=== PATIENT | male | born 1990 | race Caucasian/White ===

== ENCOUNTER 2020-12-13 15:48 | Inpatient (IN) | payer MEDICAID, OTHER ==
[~2020-12-13] VITALS: Ht 170.2 cm; Wt 87.7 kg
[~2020-12-13 15:48] MED LIST: CLOZ100T32 PO; DESO515C TP; HALO5TAB2 PO; NIZO215C TP
[2020-12-13] MEDS ORDERED: LORazepam 2 MG/ML VIAL ONE (16:43)
[2020-12-13] MEDS ORDERED: HALOPERIDOL LACTATE 5 MG/ML VIAL ONE (16:43)
[2020-12-13] MEDS ORDERED: DiphenhydrAMINE HCL 50 MG/ML VIAL ONE (16:43)
[2020-12-13] MEDS ORDERED: HALOPERIDOL LACTATE 5 MG/ML VIAL IM ONE (16:45)
[2020-12-13] MEDS ORDERED: DiphenhydrAMINE HCL 50 MG/ML VIAL IM ONE (16:45)
[2020-12-13] MEDS ORDERED: LORazepam 2 MG/ML VIAL IM ONE (16:45)
[2020-12-13 17:13] LABS: COVID AG,FIA SOURCE NASOPHARYNGEAL
[2020-12-13 17:45] LABS: BASOPHILS % (AUTO) 0.7 % (0.0-2.0); EOSINOPHILS % (AUTO) 2.6 % (1.0-6.0); HEMATOCRIT 40.9 % (41-53); HEMOGLOBIN 13.9 g/dL (13.5-17.5); LYMPHOCYTES # (AUTO) 2.3 K/uL (1.0-4.8); LYMPHOCYTES % (AUTO) 16.8 % (22.0-44.0); MEAN CORPUSCULAR HEMOGLOBIN 28.7 pg (26.0-34.0); MEAN CORPUSCULAR HGB CONC 33.9 G/dL (31.0-37.0); MEAN CORPUSCULAR VOLUME 85 fL (80-100); MONOCYTES # (AUTO) 1.3 K/uL (0.1-1.0); NEUTROPHILS # (AUTO) 9.9 K/uL (1.8-7.7); NEUTROPHILS % (AUTO) 70.9 % (40.0-70.0); PLATELET COUNT (AUTO) 380 K/uL (150-450); RED BLOOD CELL COUNT(AUTO) 4.84 MIL/uL (4.50-5.90); RED CELL DISTRIBUTION WIDTH 13.7 % (11.5-14.5)
[2020-12-13 17:53] LABS: ANION GAP 16 mmol/L (8-16); CALCIUM, TOTAL 8.9 mg/dL (8.8-10.5); CARBON DIOXIDE 21 mmol/L (22-29); CHLORIDE 101 mmol/L (98-107); CREATININE 0.85 mg/dL (0.60-1.30); GLOMERULAR FILTR. RATE CALC > 60 mL/min (>60); GLUCOSE,RANDOM 118 mg/dL (70-110); POTASSIUM 3.7 mmol/L (3.5-5.1); SODIUM SERUM 138 mmol/L (136-145); UREA NITROGEN, BLOOD 13 mg/dL (7-18)
[2020-12-13 18:08] LABS: ALANINE AMINOTRANSFERASE 31 U/L (12-78); ALBUMIN 3.9 g/dL (3.4-5.0); ALKALINE PHOSPHATASE 94 U/L (46-116); ASPARTATE AMINOTRANSFERASE 15 U/L (15-37); BILIRUBIN,TOTAL 0.3 mg/dL (0.1-1.0); CHOL/HDL RATIO 4.7 (4.2-7.3); CHOLESTEROL 197 mg/dL (131-200); FREE T4 (FREE THYROXINE) 1.32 ng/dL (0.76-1.46); HDL CHOLESTEROL 42 mg/dL (40-60); LDL CHOL (CALC.) 129 mg/dL (0-130); THYROID STIMULATING HORMONE 3.47 uIU/mL (0.36-3.74); TOTAL PROTEIN, SERUM 8.3 g/dL (6.4-8.2); TRIGLYCERIDES 131 mg/dL (15-150)
[2020-12-13] MEDS ORDERED: ZOLPIDEM TARTRATE 10 MG TABLET PO PRN (19:00)
[2020-12-13] MEDS ORDERED: LORazepam 2 MG TABLET PO PRN (19:00)
[2020-12-13] MEDS ORDERED: HALOPERIDOL 5 MG TABLET PO PRN (19:00)
[2020-12-13] MEDS ORDERED: PRUC2TAB PO (19:12)
[2020-12-13] MEDS ORDERED: HYDR-3831 PO (19:12)
[2020-12-13] MEDS ORDERED: OLAN10TA3 PO (19:12)
[2020-12-13 19:49] LABS: AMPHET/METH SCREEN,URINE NEGATIVE (NEGATIVE); BARBITURATE SCREEN, URINE NEGATIVE (NEGATIVE); BENZODIAZEPINES SCREEN,URINE NEGATIVE (NEGATIVE); CANNABINOID SCREEN,URINE NEGATIVE (NEGATIVE); COCAINE SCREEN,URINE NEGATIVE (NEGATIVE); METHADONE SCREEN, URINE NEGATIVE (NEGATIVE); OPIATE SCREEN,URINE NEGATIVE (NEGATIVE)
[2020-12-13 19:56] LABS: PHENCYCLIDINE SCREEN,URINE NEGATIVE (NEGATIVE)
[2020-12-13] MEDS ORDERED: ZOLPIDEM TARTRATE 10 MG TABLET PO ONE (20:15)
[2020-12-13] MEDS ORDERED: RisperiDONE 1 MG TABLET PO ONE (20:15)
[2020-12-14 03:03] VITALS: BP 105/73
[2020-12-14] MEDS ORDERED: INFLUENZA VIRUS VACCINE QVS 2020-21 (6MO+)/PF 60 MCG/0.5 ML SYRINGE IM ONE (06:15)
[2020-12-14] MEDS ORDERED: GuaiFENesin/D-METHORPHAN [SUGAR-FREE] 200-20MG/10 ML SYRUP UDCUP PO PRN (07:30)
[2020-12-14] MEDS ORDERED: IBUPROFEN 400 MG TABLET PO PRN (07:30)
[2020-12-14] MEDS ORDERED: DOCUSATE SODIUM 100 MG CAPSULE PO PRN (07:30)
[2020-12-14] MEDS ORDERED: ALBUTEROL SULFATE HFA 90 MCG/PUFF 8 GM INHALER IH PRN (07:30)
[2020-12-14] MEDS ORDERED: NICOTINE 14 MG/24 HOUR PATCH TD PRN (07:30)
[2020-12-14] MEDS ORDERED: ONDANSETRON HCL 4 MG TABLET PO PRN (07:30)
[2020-12-14] MEDS ORDERED: PETROLATUM,WHITE 28 GM JELLY TP PRN (07:30)
[2020-12-14] MEDS ORDERED: LOPERAMIDE HCL 2 MG CAPSULE PO PRN (07:30)
[2020-12-14] MEDS ORDERED: MAGNESIUM HYDROXIDE SUSPENSION 30 ML UDCUP PO PRN (07:30)
[2020-12-14] MEDS ORDERED: CloNIDine HCL 0.1 MG TABLET PO PRN (07:30)
[2020-12-14] MEDS ORDERED: MAG HYDROX/AL HYDROX/SIMETH ES 30 ML SUSPENSION UDCUP PO PRN (07:30)
[2020-12-14] MEDS ORDERED: ACETAMINOPHEN 325 MG TABLET PO PRN (07:30)
[2020-12-14 10:11] VITALS: BP 115/77
[2020-12-14] MEDS: HydrOXYzine HCL 10 MG TABLET PO SCH ×2 (13:21→20:33)
[2020-12-14 16:39] VITALS: BP 108/71
[2020-12-14] MEDS: OLANZapine 10 MG TABLET PO SCH (20:33)
[2020-12-15 01:46] VITALS: BP 125/68
[2020-12-15 08:19] VITALS: BP 120/75
[2020-12-15] MEDS: HydrOXYzine HCL 10 MG TABLET PO SCH ×2 (08:41→21:59)
[2020-12-15 16:20] VITALS: BP 113/73
[2020-12-15] MEDS: OLANZapine 10 MG TABLET PO SCH (21:59)
[2020-12-16 05:21] VITALS: BP 110/72
[2020-12-16 08:34] VITALS: BP 100/61
[2020-12-16] MEDS: HydrOXYzine HCL 10 MG TABLET PO SCH ×2 (09:34→21:43)
[2020-12-16 16:29] VITALS: BP 116/74
[2020-12-16] MEDS: OLANZapine 10 MG TABLET PO SCH (21:43)
[2020-12-17 04:31] VITALS: BP 114/72
[2020-12-17 08:26] VITALS: BP 117/74
[2020-12-17] MEDS: HydrOXYzine HCL 10 MG TABLET PO SCH ×2 (09:31→20:07)
[2020-12-17 17:05] VITALS: BP 107/62
[2020-12-17] MEDS: OLANZapine 10 MG TABLET PO SCH (20:06)
[2020-12-18 03:49] VITALS: BP 111/69
[2020-12-18] MEDS: HydrOXYzine HCL 10 MG TABLET PO SCH ×2 (08:38→21:59)
[2020-12-18 09:01] VITALS: BP 116/64
[2020-12-18 16:33] VITALS: BP 116/77
[2020-12-18] MEDS: OLANZapine 10 MG TABLET PO SCH (21:59)
[2020-12-19 02:39] VITALS: BP 112/72
[2020-12-19 08:55] VITALS: BP 120/61
[2020-12-19] MEDS: HydrOXYzine HCL 10 MG TABLET PO SCH (09:25)
[2020-12-19] MEDS ORDERED: HYDR-3831 PO (09:26)
[2020-12-19] MEDS ORDERED: OLAN10TA20 PO (09:26)
== END 2020-12-19 12:21 | disposition home or self-care (01) | DRG 750 ==
LOC: EMS 15:48 → B3A 18:46
DX: F20.0 Paranoid schizophrenia (principal); F99 Mental disorder, not otherwise specified; D72.829 Elevated white blood cell count, unspecified; E66.3 Overweight; F31.9 Bipolar disorder, unspecified; Z20.822 Contact with and (suspected) exposure to COVID-19; F79 Unspecified intellectual disabilities; R00.0 Tachycardia, unspecified; Z78.1 Physical restraint status; Z79.899 Other long term (current) drug therapy; Z23 Encounter for immunization; Z68.30 Body mass index [BMI] 30.0-30.9, adult
CPT/HCPCS: 84439; 84443; 87426; 90686; 99291; G0480; J1200; J1630; J2060

== ENCOUNTER 2020-12-25 15:53 | Inpatient (IN) | payer MEDICAID, OTHER ==
[~2020-12-25] VITALS: Ht 170.2 cm; Wt 87.1 kg
[~2020-12-25 15:53] MED LIST changes: -CLOZ100T32 PO; -DESO515C TP; -HALO5TAB2 PO; +HYDR-3831 PO; -NIZO215C TP; +OLAN10TA20 PO
[2020-12-25 21:05] LABS: COVID AG,FIA SOURCE NASAL SWAB
[2020-12-25] MEDS ORDERED: HALOPERIDOL 5 MG TABLET PO PRN (21:15)
[2020-12-25] MEDS ORDERED: ZOLPIDEM TARTRATE 10 MG TABLET PO PRN (21:15)
[2020-12-25] MEDS ORDERED: HYD25 PO (22:15)
[2020-12-25] MEDS ORDERED: PRUC2TAB PO (22:15)
[2020-12-26 06:21] LABS: BASOPHILS % (AUTO) 0.8 % (0.0-2.0); EOSINOPHILS % (AUTO) 2.6 % (1.0-6.0); HEMATOCRIT 39.6 % (41-53); HEMOGLOBIN 13.4 g/dL (13.5-17.5); LYMPHOCYTES # (AUTO) 2.4 K/uL (1.0-4.8); LYMPHOCYTES % (AUTO) 20.9 % (22.0-44.0); MEAN CORPUSCULAR HEMOGLOBIN 28.9 pg (26.0-34.0); MEAN CORPUSCULAR HGB CONC 33.9 G/dL (31.0-37.0); MEAN CORPUSCULAR VOLUME 85 fL (80-100); MONOCYTES # (AUTO) 1.5 K/uL (0.1-1.0); MONOCYTES % (AUTO) 12.8 % (2.0-9.0); NEUTROPHILS # (AUTO) 7.2 K/uL (1.8-7.7); NEUTROPHILS % (AUTO) 62.9 % (40.0-70.0); PLATELET COUNT (AUTO) 341 K/uL (150-450); RED BLOOD CELL COUNT(AUTO) 4.65 MIL/uL (4.50-5.90); RED CELL DISTRIBUTION WIDTH 13.8 % (11.5-14.5)
[2020-12-26 06:33] LABS: APPEARANCE,URINE CLEAR (CLEAR); BILIRUBIN,URINE NEGATIVE (NEGATIVE); GLUCOSE, URINE (UA) NEGATIVE (NEGATIVE); KETONES,URINE NEGATIVE (NEGATIVE); LEUKOCYTE ESTERASE ,URINE NEGATIVE (NEGATIVE); NITRATE,URINE NEGATIVE (NEGATIVE); OCCULT BLOOD,URINE NEGATIVE (NEGATIVE); PROTEIN,URINE NEGATIVE (NEGATIVE); UROBILINOGEN,URINE 0.2 mg/dL (<=1.0)
[2020-12-26 06:35] LABS: ANION GAP 9 mmol/L (8-16); CARBON DIOXIDE 28 mmol/L (22-29); CHLORIDE 102 mmol/L (98-107); CREATININE 0.68 mg/dL (0.60-1.30); GLOMERULAR FILTR. RATE CALC > 60 mL/min (>60); GLUCOSE,RANDOM 95 mg/dL (70-110); POTASSIUM 3.3 mmol/L (3.5-5.1); SODIUM SERUM 139 mmol/L (136-145); UREA NITROGEN, BLOOD 10 mg/dL (7-18)
[2020-12-26 06:40] LABS: AMPHET/METH SCREEN,URINE NEGATIVE (NEGATIVE); BARBITURATE SCREEN, URINE NEGATIVE (NEGATIVE); BENZODIAZEPINES SCREEN,URINE NEGATIVE (NEGATIVE); CANNABINOID SCREEN,URINE NEGATIVE (NEGATIVE); COCAINE SCREEN,URINE NEGATIVE (NEGATIVE); METHADONE SCREEN, URINE NEGATIVE (NEGATIVE); OPIATE SCREEN,URINE NEGATIVE (NEGATIVE)
[2020-12-26 06:41] LABS: ALANINE AMINOTRANSFERASE 27 U/L (12-78); ALBUMIN 3.5 g/dL (3.4-5.0); ALKALINE PHOSPHATASE 87 U/L (46-116); ASPARTATE AMINOTRANSFERASE 16 U/L (15-37); BILIRUBIN,TOTAL 0.5 mg/dL (0.1-1.0); CHOL/HDL RATIO 3.8 (4.2-7.3); CHOLESTEROL 165 mg/dL (131-200); HDL CHOLESTEROL 44 mg/dL (40-60); LDL CHOL (CALC.) 110 mg/dL (0-130); TOTAL PROTEIN, SERUM 7.7 g/dL (6.4-8.2); TRIGLYCERIDES 57 mg/dL (15-150)
[2020-12-26 06:43] LABS: PHENCYCLIDINE SCREEN,URINE NEGATIVE (NEGATIVE)
[2020-12-26 16:55] VITALS: BP 131/89
[2020-12-26] MEDS ORDERED: -PHARMACY VACCINE NOTE- MISC ONE (17:15)
[2020-12-26] MEDS ORDERED: POTASSIUM CHLORIDE 20 MEQ ER TABLET PO ONE (21:45)
[2020-12-27 05:17] VITALS: BP 126/82
[2020-12-27] MEDS ORDERED: MAG HYDROX/AL HYDROX/SIMETH ES 30 ML SUSPENSION UDCUP PO PRN (07:45)
[2020-12-27] MEDS ORDERED: DOCUSATE SODIUM 100 MG CAPSULE PO PRN (07:45)
[2020-12-27] MEDS ORDERED: NICOTINE 14 MG/24 HOUR PATCH TD PRN (07:45)
[2020-12-27] MEDS ORDERED: ACETAMINOPHEN 325 MG TABLET PO PRN (07:45)
[2020-12-27] MEDS ORDERED: MAGNESIUM HYDROXIDE SUSPENSION 30 ML UDCUP PO PRN (07:45)
[2020-12-27] MEDS ORDERED: ALBUTEROL SULFATE HFA 90 MCG/PUFF 8 GM INHALER IH PRN (07:45)
[2020-12-27] MEDS ORDERED: PETROLATUM,WHITE 28 GM JELLY TP PRN (07:45)
[2020-12-27] MEDS ORDERED: CloNIDine HCL 0.1 MG TABLET PO PRN (07:45)
[2020-12-27] MEDS ORDERED: GuaiFENesin/D-METHORPHAN [SUGAR-FREE] 200-20MG/10 ML SYRUP UDCUP PO PRN (07:45)
[2020-12-27] MEDS ORDERED: ONDANSETRON HCL 4 MG TABLET PO PRN (07:45)
[2020-12-27] MEDS ORDERED: IBUPROFEN 400 MG TABLET PO PRN (07:45)
[2020-12-27 08:08] VITALS: BP 104/66
[2020-12-27] MEDS: LORazepam 2 MG TABLET PO PRN (09:31)
[2020-12-27] MEDS: LOPERAMIDE HCL 2 MG CAPSULE PO PRN ×3 (11:44→14:41)
[2020-12-27 16:05] VITALS: BP 110/83
[2020-12-27] MEDS: OLANZapine 10 MG TABLET PO SCH (21:00)
[2020-12-27] MEDS: HydrOXYzine HCL 10 MG TABLET PO SCH (21:00)
[2020-12-27] MEDS: MetroNIDAZOLE 500 MG TABLET PO SCH (21:00)
[2020-12-28 00:51] VITALS: BP 120/68
[2020-12-28] MEDS: HydrOXYzine HCL 10 MG TABLET PO SCH ×2 (08:16→19:50)
[2020-12-28] MEDS: MetroNIDAZOLE 500 MG TABLET PO SCH ×3 (08:16→17:00)
[2020-12-28 08:29] VITALS: BP 136/79
[2020-12-28 16:14] VITALS: BP 115/68
[2020-12-28] MEDS: OLANZapine 10 MG TABLET PO SCH (19:50)
[2020-12-29 04:46] VITALS: BP 119/68
[2020-12-29 08:16] VITALS: BP 110/78
[2020-12-29] MEDS: MetroNIDAZOLE 500 MG TABLET PO SCH ×3 (08:39→16:15)
[2020-12-29] MEDS: HydrOXYzine HCL 10 MG TABLET PO SCH ×2 (08:40→21:20)
[2020-12-29 17:17] VITALS: BP 129/66
[2020-12-29] MEDS: OLANZapine 10 MG TABLET PO SCH (20:34)
[2020-12-30 03:44] VITALS: BP 118/69
[2020-12-30 08:31] VITALS: BP 113/72
[2020-12-30] MEDS: MetroNIDAZOLE 500 MG TABLET PO SCH ×3 (10:31→16:35)
[2020-12-30] MEDS: HydrOXYzine HCL 10 MG TABLET PO SCH ×2 (10:31→21:06)
[2020-12-30 16:09] VITALS: BP 123/68
[2020-12-30] MEDS: OLANZapine 10 MG TABLET PO SCH (21:04)
[2020-12-31 04:42] VITALS: BP 118/69
[2020-12-31] MEDS: MetroNIDAZOLE 500 MG TABLET PO SCH ×3 (08:19→16:42)
[2020-12-31] MEDS: HydrOXYzine HCL 10 MG TABLET PO SCH ×2 (08:19→20:56)
[2020-12-31 09:14] VITALS: BP 132/82
[2020-12-31 16:30] VITALS: BP 113/73
[2020-12-31] MEDS: OLANZapine 10 MG TABLET PO SCH (20:56)
[2021-01-01 04:32] VITALS: BP 112/68
[2021-01-01 08:20] VITALS: BP 128/77
[2021-01-01] MEDS: MetroNIDAZOLE 500 MG TABLET PO SCH ×3 (08:24→16:41)
[2021-01-01] MEDS: HydrOXYzine HCL 10 MG TABLET PO SCH ×2 (08:25→21:26)
[2021-01-01 16:05] VITALS: BP 118/84
[2021-01-01] MEDS: OLANZapine 10 MG TABLET PO SCH (20:55)
[2021-01-02 06:38] VITALS: BP 121/81
[2021-01-02 08:06] VITALS: BP 118/74
[2021-01-02] MEDS: MetroNIDAZOLE 500 MG TABLET PO SCH ×3 (09:15→16:13)
[2021-01-02] MEDS: HydrOXYzine HCL 10 MG TABLET PO SCH ×2 (09:15→20:11)
[2021-01-02 16:27] VITALS: BP 120/77
[2021-01-02] MEDS: OLANZapine 10 MG TABLET PO SCH (20:12)
[2021-01-03 05:13] VITALS: BP 116/73
[2021-01-03 08:04] VITALS: BP 103/62
[2021-01-03] MEDS: HydrOXYzine HCL 10 MG TABLET PO SCH ×2 (08:28→20:43)
[2021-01-03] MEDS: MetroNIDAZOLE 500 MG TABLET PO SCH ×3 (08:29→16:24)
[2021-01-03 16:30] VITALS: BP 127/79
[2021-01-03] MEDS: OLANZapine 10 MG TABLET PO SCH (20:43)
[2021-01-04 05:04] VITALS: BP 119/69
[2021-01-04] MEDS: HydrOXYzine HCL 10 MG TABLET PO SCH ×2 (08:05→20:46)
[2021-01-04 16:03] VITALS: BP 126/71
[2021-01-04] MEDS: LORazepam 2 MG TABLET PO PRN (16:37)
[2021-01-04] MEDS: OLANZapine 10 MG TABLET PO SCH (20:37)
[2021-01-05 04:23] VITALS: BP 121/72
[2021-01-05] MEDS ORDERED: TUBERCULIN, PURIFIED PROTEIN DERIVATIVE 5 TU/0.1 ML SYRINGE ID ONE (08:15)
[2021-01-05 09:17] VITALS: BP 115/74
[2021-01-05] MEDS: HydrOXYzine HCL 10 MG TABLET PO SCH ×2 (09:46→20:59)
[2021-01-05 16:27] VITALS: BP 129/87
[2021-01-05] MEDS: OLANZapine 10 MG TABLET PO SCH (20:59)
[2021-01-06 04:57] VITALS: BP 119/71
[2021-01-06 08:45] VITALS: BP 117/77
[2021-01-06] MEDS: HydrOXYzine HCL 10 MG TABLET PO SCH ×2 (09:33→20:32)
[2021-01-06] MEDS ORDERED: TUBERCULIN, PURIFIED PROTEIN DERIVATIVE 5 TU/0.1 ML SYRINGE ID ONE ×2 (11:30→14:00)
[2021-01-06 16:51] VITALS: BP 112/78
[2021-01-06] MEDS: OLANZapine 10 MG TABLET PO SCH (20:32)
[2021-01-07 05:45] VITALS: BP 112/73
[2021-01-07 08:38] VITALS: BP 135/79
[2021-01-07] MEDS: LORazepam 2 MG TABLET PO PRN (08:47)
[2021-01-07] MEDS: HydrOXYzine HCL 10 MG TABLET PO SCH ×2 (08:48→20:11)
[2021-01-07 17:31] VITALS: BP 115/74
[2021-01-07] MEDS: OLANZapine 10 MG TABLET PO SCH (20:11)
[2021-01-08 03:44] VITALS: BP 112/71
[2021-01-08] MEDS: HydrOXYzine HCL 10 MG TABLET PO SCH ×2 (09:16→21:06)
[2021-01-08 09:55] VITALS: BP 124/78
[2021-01-08 17:03] VITALS: BP 120/75
[2021-01-08] MEDS: OLANZapine 10 MG TABLET PO SCH (20:54)
[2021-01-09 05:25] VITALS: BP 128/78
[2021-01-09 08:33] VITALS: BP 110/74
[2021-01-09] MEDS: HydrOXYzine HCL 10 MG TABLET PO SCH ×2 (09:04→20:31)
[2021-01-09 16:30] VITALS: BP 140/80
[2021-01-09] MEDS: OLANZapine 10 MG TABLET PO SCH (20:31)
[2021-01-10 00:34] VITALS: BP 138/82
[2021-01-10 08:27] VITALS: BP 126/76
[2021-01-10] MEDS: HydrOXYzine HCL 10 MG TABLET PO SCH ×2 (09:18→20:20)
[2021-01-10 16:22] VITALS: BP 112/72
[2021-01-10] MEDS: OLANZapine 10 MG TABLET PO SCH (20:20)
[2021-01-11 04:33] VITALS: BP 124/74
[2021-01-11 08:32] VITALS: BP 110/86
[2021-01-11] MEDS: HydrOXYzine HCL 10 MG TABLET PO SCH ×2 (10:20→21:05)
[2021-01-11 16:08] VITALS: BP 113/75
[2021-01-11] MEDS: OLANZapine 10 MG TABLET PO SCH (21:07)
[2021-01-12 05:39] VITALS: BP 118/79
[2021-01-12 08:16] VITALS: BP 112/71
[2021-01-12] MEDS: HydrOXYzine HCL 10 MG TABLET PO SCH ×2 (08:20→22:08)
[2021-01-12 16:00] VITALS: BP 115/74
[2021-01-12] MEDS: OLANZapine 10 MG TABLET PO SCH (20:33)
[2021-01-13 00:18] VITALS: BP 108/67
[2021-01-13 08:09] LABS: BASOPHILS % (AUTO) 0.9 % (0.0-2.0); EOSINOPHILS % (AUTO) 4.8 % (1.0-6.0); HEMATOCRIT 44.4 % (41-53); HEMOGLOBIN 14.9 g/dL (13.5-17.5); LYMPHOCYTES # (AUTO) 3.2 K/uL (1.0-4.8); LYMPHOCYTES % (AUTO) 33.1 % (22.0-44.0); MEAN CORPUSCULAR HEMOGLOBIN 28.9 pg (26.0-34.0); MEAN CORPUSCULAR HGB CONC 33.5 G/dL (31.0-37.0); MEAN CORPUSCULAR VOLUME 86 fL (80-100); MONOCYTES # (AUTO) 0.9 K/uL (0.1-1.0); MONOCYTES % (AUTO) 9.6 % (2.0-9.0); NEUTROPHILS % (AUTO) 51.6 % (40.0-70.0); PLATELET COUNT (AUTO) 373 K/uL (150-450); RED BLOOD CELL COUNT(AUTO) 5.15 MIL/uL (4.50-5.90); RED CELL DISTRIBUTION WIDTH 13.6 % (11.5-14.5)
[2021-01-13 08:11] VITALS: BP 120/70
[2021-01-13] MEDS: HydrOXYzine HCL 10 MG TABLET PO SCH ×2 (08:25→20:37)
[2021-01-13 08:29] LABS: ANION GAP 10 mmol/L (8-16); CALCIUM, TOTAL 9.2 mg/dL (8.8-10.5); CARBON DIOXIDE 26 mmol/L (22-29); CHLORIDE 102 mmol/L (98-107); CREATININE 0.88 mg/dL (0.60-1.30); GLOMERULAR FILTR. RATE CALC > 60 mL/min (>60); GLUCOSE,RANDOM 101 mg/dL (70-110); POTASSIUM 3.5 mmol/L (3.5-5.1); SODIUM SERUM 138 mmol/L (136-145); UREA NITROGEN, BLOOD 14 mg/dL (7-18)
[2021-01-13 16:32] VITALS: BP 112/74
[2021-01-13] MEDS: OLANZapine 10 MG TABLET PO SCH (20:05)
[2021-01-14 04:50] VITALS: BP 116/72
[2021-01-14] MEDS: HydrOXYzine HCL 10 MG TABLET PO SCH ×2 (08:20→20:55)
[2021-01-14 08:25] VITALS: BP 116/72
[2021-01-14 16:31] VITALS: BP 125/79
[2021-01-14] MEDS: OLANZapine 10 MG TABLET PO SCH (20:55)
[2021-01-15 00:27] VITALS: BP 120/80
[2021-01-15 08:10] VITALS: BP 142/80
[2021-01-15] MEDS: HydrOXYzine HCL 10 MG TABLET PO SCH ×2 (08:43→21:02)
[2021-01-15 16:37] VITALS: BP 102/63
[2021-01-15] MEDS: OLANZapine 10 MG TABLET PO SCH (21:02)
[2021-01-16 05:21] VITALS: BP 118/76
[2021-01-16 08:26] VITALS: BP 128/64
[2021-01-16] MEDS: HydrOXYzine HCL 10 MG TABLET PO SCH ×2 (08:38→20:14)
[2021-01-16 16:14] VITALS: BP 117/66
[2021-01-16] MEDS: OLANZapine 10 MG TABLET PO SCH (20:15)
[2021-01-17 03:53] VITALS: BP 125/69
[2021-01-17] MEDS: HydrOXYzine HCL 10 MG TABLET PO SCH ×2 (08:27→20:39)
[2021-01-17 09:04] VITALS: BP 111/69
[2021-01-17 16:01] VITALS: BP 113/72
[2021-01-17] MEDS: OLANZapine 10 MG TABLET PO SCH (20:39)
[2021-01-18 05:36] VITALS: BP 126/69
[2021-01-18 08:41] VITALS: BP 121/61
[2021-01-18] MEDS: HydrOXYzine HCL 10 MG TABLET PO SCH ×2 (08:48→21:33)
[2021-01-18 16:25] VITALS: BP 116/73
[2021-01-18] MEDS: OLANZapine 10 MG TABLET PO SCH (21:33)
[2021-01-19 03:29] VITALS: BP 124/67
[2021-01-19 08:45] VITALS: BP 100/62
[2021-01-19] MEDS: HydrOXYzine HCL 10 MG TABLET PO SCH ×2 (08:47→20:34)
[2021-01-19 16:25] VITALS: BP 102/62
[2021-01-19] MEDS: OLANZapine 10 MG TABLET PO SCH (20:34)
[2021-01-20 05:16] VITALS: BP 102/66
[2021-01-20 09:20] VITALS: BP 103/63
[2021-01-20] MEDS: HydrOXYzine HCL 10 MG TABLET PO SCH ×2 (10:09→20:21)
[2021-01-20 16:46] VITALS: BP 110/69
[2021-01-20] MEDS: OLANZapine 10 MG TABLET PO SCH (20:21)
[2021-01-21 00:59] VITALS: BP 123/70
[2021-01-21 08:23] VITALS: BP 111/71
[2021-01-21] MEDS: HydrOXYzine HCL 10 MG TABLET PO SCH ×2 (09:09→20:32)
[2021-01-21 16:38] VITALS: BP 120/74
[2021-01-21] MEDS ORDERED: TUBERCULIN, PURIFIED PROTEIN DERIVATIVE 5 TU/0.1 ML SYRINGE ID ONE (18:15)
[2021-01-21] MEDS: OLANZapine 10 MG TABLET PO SCH (20:32)
[2021-01-22 06:34] VITALS: BP 136/86
[2021-01-22 08:15] VITALS: BP 103/53
[2021-01-22] MEDS: HydrOXYzine HCL 10 MG TABLET PO SCH ×2 (09:26→20:51)
[2021-01-22 16:33] VITALS: BP 128/65
[2021-01-22] MEDS: OLANZapine 10 MG TABLET PO SCH (20:51)
[2021-01-23 06:40] VITALS: BP 120/77
[2021-01-23] MEDS: HydrOXYzine HCL 10 MG TABLET PO SCH ×2 (08:12→20:20)
[2021-01-23 09:04] VITALS: BP 123/76
[2021-01-23 16:13] VITALS: BP 118/74
[2021-01-23] MEDS: OLANZapine 10 MG TABLET PO SCH (20:20)
[2021-01-24 01:05] VITALS: BP 117/73
[2021-01-24 07:50] LABS: COVID AG,FIA SOURCE NASOPHARYNGEAL
[2021-01-24 08:54] VITALS: BP 116/68
[2021-01-24] MEDS: HydrOXYzine HCL 10 MG TABLET PO SCH ×2 (09:15→21:36)
[2021-01-24 16:18] VITALS: BP 123/70
[2021-01-24] MEDS: OLANZapine 10 MG TABLET PO SCH (21:36)
[2021-01-25 02:31] VITALS: BP 127/76
[2021-01-25 08:29] VITALS: BP 127/69
[2021-01-25] MEDS: HydrOXYzine HCL 10 MG TABLET PO SCH ×2 (09:18→20:44)
[2021-01-25 16:18] VITALS: BP 114/70
[2021-01-25] MEDS: OLANZapine 10 MG TABLET PO SCH (20:44)
[2021-01-26 00:50] VITALS: BP 130/79
[2021-01-26] MEDS: HydrOXYzine HCL 10 MG TABLET PO SCH (08:21)
[2021-01-26 08:58] VITALS: BP 104/76
== END 2021-01-26 12:40 | disposition home or self-care (01) | DRG 750 ==
LOC: EMS 15:56 → B3A 12-26 15:11 → B2S 01-21 12:48
DX: F20.0 Paranoid schizophrenia (principal); F79 Unspecified intellectual disabilities; D64.9 Anemia, unspecified; Z59.0 Homelessness; D72.829 Elevated white blood cell count, unspecified; E87.6 Hypokalemia; Z20.822 Contact with and (suspected) exposure to COVID-19; F31.9 Bipolar disorder, unspecified; F41.9 Anxiety disorder, unspecified; Z79.899 Other long term (current) drug therapy
CPT/HCPCS: 80048; 80053; 80061; 81003; 85025; 87081; 87426; 99285; G0480

== ENCOUNTER 2021-02-05 16:24 | Inpatient (IN) | payer MEDICAID, OTHER ==
[~2021-02-05] VITALS: Ht 172.7 cm; Wt 83.9 kg
[~2021-02-05 16:24] MED LIST changes: +HYD25 PO; -HYDR-3831 PO; +OLAN10 PO; -OLAN10TA20 PO
[2021-02-05 17:51] LABS: BASOPHILS % (AUTO) 0.4 % (0.0-2.0); EOSINOPHILS % (AUTO) 0.7 % (1.0-6.0); HEMATOCRIT 46.2 % (41-53); HEMOGLOBIN 15.3 g/dL (13.5-17.5); LYMPHOCYTES # (AUTO) 1.2 K/uL (1.0-4.8); LYMPHOCYTES % (AUTO) 9.6 % (22.0-44.0); MEAN CORPUSCULAR HEMOGLOBIN 28.4 pg (26.0-34.0); MEAN CORPUSCULAR HGB CONC 33.1 G/dL (31.0-37.0); MEAN CORPUSCULAR VOLUME 86 fL (80-100); MONOCYTES # (AUTO) 1.1 K/uL (0.1-1.0); MONOCYTES % (AUTO) 9.3 % (2.0-9.0); NEUTROPHILS # (AUTO) 9.8 K/uL (1.8-7.7); PLATELET COUNT (AUTO) 370 K/uL (150-450); RED BLOOD CELL COUNT(AUTO) 5.37 MIL/uL (4.50-5.90); RED CELL DISTRIBUTION WIDTH 13.5 % (11.5-14.5)
[2021-02-05 18:02] LABS: ANION GAP 12 mmol/L (8-16); CALCIUM, TOTAL 9.2 mg/dL (8.8-10.5); CARBON DIOXIDE 24 mmol/L (22-29); CHLORIDE 101 mmol/L (98-107); CREATININE 0.88 mg/dL (0.60-1.30); GLOMERULAR FILTR. RATE CALC > 60 mL/min (>60); GLUCOSE,RANDOM 120 mg/dL (70-110); POTASSIUM 3.8 mmol/L (3.5-5.1); SODIUM SERUM 137 mmol/L (136-145); UREA NITROGEN, BLOOD 16 mg/dL (7-18)
[2021-02-05 18:02] LABS: COVID AG,FIA SOURCE NASOPHARYNGEAL
[2021-02-05 18:07] LABS: ALANINE AMINOTRANSFERASE 29 U/L (12-78); ALBUMIN 4.1 g/dL (3.4-5.0); ALKALINE PHOSPHATASE 88 U/L (46-116); ASPARTATE AMINOTRANSFERASE 13 U/L (15-37); BILIRUBIN,TOTAL 0.4 mg/dL (0.1-1.0); TOTAL PROTEIN, SERUM 8.2 g/dL (6.4-8.2)
[2021-02-05] MEDS: HydrOXYzine HCL 10 MG TABLET PO SCH (20:08)
[2021-02-05] MEDS ORDERED: OLANZapine 10 MG TABLET PO SCH (21:00)
[2021-02-05 21:48] VITALS: BP 117/75
[2021-02-06 04:48] VITALS: BP 121/78
[2021-02-06 08:33] VITALS: BP 118/76
[2021-02-06] MEDS: HydrOXYzine HCL 10 MG TABLET PO SCH (08:35)
[2021-02-06] MEDS ORDERED: LOPERAMIDE HCL 2 MG CAPSULE PO PRN (08:45)
[2021-02-06] MEDS ORDERED: CloNIDine HCL 0.1 MG TABLET PO PRN (08:45)
[2021-02-06] MEDS ORDERED: MAGNESIUM HYDROXIDE SUSPENSION 30 ML UDCUP PO PRN (08:45)
[2021-02-06] MEDS ORDERED: MAG HYDROX/AL HYDROX/SIMETH ES 30 ML SUSPENSION UDCUP PO PRN (08:45)
[2021-02-06] MEDS ORDERED: PETROLATUM,WHITE 28 GM JELLY TP PRN (08:45)
[2021-02-06] MEDS ORDERED: ONDANSETRON HCL 4 MG TABLET PO PRN (08:45)
[2021-02-06] MEDS ORDERED: IBUPROFEN 400 MG TABLET PO PRN (08:45)
[2021-02-06] MEDS ORDERED: NICOTINE 14 MG/24 HOUR PATCH TD PRN (08:45)
[2021-02-06] MEDS ORDERED: GuaiFENesin/D-METHORPHAN [SUGAR-FREE] 200-20MG/10 ML SYRUP UDCUP PO PRN (08:45)
[2021-02-06] MEDS ORDERED: DOCUSATE SODIUM 100 MG CAPSULE PO PRN (08:45)
[2021-02-06] MEDS ORDERED: ALBUTEROL SULFATE HFA 90 MCG/PUFF 8 GM INHALER IH PRN (08:45)
[2021-02-06] MEDS ORDERED: ACETAMINOPHEN 325 MG TABLET PO PRN (08:45)
[2021-02-06 16:17] VITALS: BP 112/73
[2021-02-06] MEDS: HydrOXYzine HCL 25 MG TABLET PO SCH (16:50)
[2021-02-06] MEDS: OLANZapine 10 MG TABLET PO SCH (21:05)
[2021-02-07 01:23] VITALS: BP 110/69
[2021-02-07 08:54] VITALS: BP 113/68
[2021-02-07] MEDS: HydrOXYzine HCL 25 MG TABLET PO SCH ×3 (09:05→17:00)
[2021-02-07 16:16] VITALS: BP 119/76
[2021-02-07] MEDS: OLANZapine 10 MG TABLET PO SCH (20:14)
[2021-02-07] MEDS: LORazepam 2 MG TABLET PO PRN (20:14)
[2021-02-08 01:29] VITALS: BP 116/68
[2021-02-08] MEDS: HydrOXYzine HCL 25 MG TABLET PO SCH ×3 (08:42→16:29)
[2021-02-08] MEDS: LORazepam 2 MG TABLET PO PRN ×3 (08:42→20:42)
[2021-02-08 09:03] VITALS: BP 140/78
[2021-02-08 16:11] VITALS: BP 123/76
[2021-02-08] MEDS: OLANZapine 10 MG TABLET PO SCH (20:42)
[2021-02-09 04:03] VITALS: BP 101/62
[2021-02-09] MEDS: HydrOXYzine HCL 25 MG TABLET PO SCH ×3 (08:26→16:09)
[2021-02-09 08:49] VITALS: BP 108/69
[2021-02-09 16:07] VITALS: BP 114/73
[2021-02-09] MEDS: OLANZapine 10 MG TABLET PO SCH (20:38)
[2021-02-10 05:30] VITALS: BP 111/71
[2021-02-10 08:10] VITALS: BP 106/71
[2021-02-10] MEDS: HydrOXYzine HCL 25 MG TABLET PO SCH ×3 (09:08→16:41)
[2021-02-10] MEDS: LORazepam 2 MG TABLET PO PRN (16:40)
[2021-02-10] MEDS: HALOPERIDOL 5 MG TABLET PO PRN (16:41)
[2021-02-10 17:57] VITALS: BP 127/78
[2021-02-10] MEDS: ZOLPIDEM TARTRATE 10 MG TABLET PO PRN (21:05)
[2021-02-10] MEDS: OLANZapine 10 MG TABLET PO SCH (21:05)
[2021-02-11 03:30] VITALS: BP 128/81
[2021-02-11 08:12] VITALS: BP 109/75
[2021-02-11] MEDS: HydrOXYzine HCL 25 MG TABLET PO SCH ×3 (08:50→16:34)
[2021-02-11] MEDS: LORazepam 2 MG TABLET PO PRN ×2 (08:50→16:34)
[2021-02-11 09:43] LABS: COVID AG,FIA SOURCE NASOPHARYNGEAL
[2021-02-11 16:17] VITALS: BP 110/76
[2021-02-11] MEDS: HALOPERIDOL 5 MG TABLET PO PRN (16:34)
[2021-02-11] MEDS: ZOLPIDEM TARTRATE 10 MG TABLET PO PRN (21:14)
[2021-02-11] MEDS: OLANZapine 10 MG TABLET PO SCH (21:14)
[2021-02-12 06:22] VITALS: BP 111/74
[2021-02-12 08:04] VITALS: BP 108/71
[2021-02-12] MEDS: LORazepam 2 MG TABLET PO PRN ×2 (08:25→16:54)
[2021-02-12] MEDS: HALOPERIDOL 5 MG TABLET PO PRN (08:25)
[2021-02-12] MEDS: HydrOXYzine HCL 25 MG TABLET PO SCH ×3 (08:25→16:54)
[2021-02-12 16:08] VITALS: BP 115/70
[2021-02-12] MEDS: OLANZapine 10 MG TABLET PO SCH (20:21)
[2021-02-12] MEDS: ZOLPIDEM TARTRATE 10 MG TABLET PO PRN (20:21)
[2021-02-13 05:36] VITALS: BP 114/72
[2021-02-13 08:30] VITALS: BP 110/71
[2021-02-13] MEDS: HydrOXYzine HCL 25 MG TABLET PO SCH ×3 (08:38→16:48)
[2021-02-13] MEDS: MULTIVITAMINS WITH MINERALS, THERAPEUTIC TABLET PO SCH (08:38)
[2021-02-13 16:16] VITALS: BP 116/68
[2021-02-13] MEDS: OLANZapine 10 MG TABLET PO SCH (20:50)
[2021-02-14 06:26] VITALS: BP 122/78
[2021-02-14 08:14] VITALS: BP 134/78
[2021-02-14] MEDS: MULTIVITAMINS WITH MINERALS, THERAPEUTIC TABLET PO SCH (08:56)
[2021-02-14] MEDS: HydrOXYzine HCL 25 MG TABLET PO SCH ×3 (08:56→16:52)
[2021-02-14 16:27] VITALS: BP 124/78
[2021-02-14] MEDS: OLANZapine 10 MG TABLET PO SCH (20:57)
[2021-02-15 03:23] VITALS: BP 124/74
[2021-02-15] MEDS: MULTIVITAMINS WITH MINERALS, THERAPEUTIC TABLET PO SCH (09:33)
[2021-02-15] MEDS: HydrOXYzine HCL 25 MG TABLET PO SCH ×3 (09:33→16:21)
[2021-02-15] MEDS: HALOPERIDOL 5 MG TABLET PO PRN ×2 (10:23→16:21)
[2021-02-15 11:16] VITALS: BP 124/67
[2021-02-15] MEDS: LORazepam 2 MG TABLET PO PRN (16:21)
[2021-02-15 16:37] VITALS: BP 119/76
[2021-02-15] MEDS: OLANZapine 10 MG TABLET PO SCH (20:28)
[2021-02-15] MEDS: ZOLPIDEM TARTRATE 10 MG TABLET PO PRN (20:28)
[2021-02-16 05:06] VITALS: BP 123/67
[2021-02-16 08:05] VITALS: BP 124/80
[2021-02-16] MEDS: HydrOXYzine HCL 25 MG TABLET PO SCH ×3 (08:45→16:20)
[2021-02-16] MEDS: MULTIVITAMINS WITH MINERALS, THERAPEUTIC TABLET PO SCH (08:45)
[2021-02-16 16:20] VITALS: BP 115/65
[2021-02-16] MEDS: OLANZapine 10 MG TABLET PO SCH (20:44)
[2021-02-17 04:34] VITALS: BP 115/62
[2021-02-17 08:08] VITALS: BP 126/74
[2021-02-17] MEDS: HydrOXYzine HCL 25 MG TABLET PO SCH ×3 (08:54→16:25)
[2021-02-17] MEDS: MULTIVITAMINS WITH MINERALS, THERAPEUTIC TABLET PO SCH (08:55)
[2021-02-17] MEDS: HALOPERIDOL 5 MG TABLET PO PRN (08:55)
[2021-02-17 16:05] VITALS: BP 125/70
[2021-02-17] MEDS: LORazepam 2 MG TABLET PO PRN (16:25)
[2021-02-17] MEDS: OLANZapine 10 MG TABLET PO SCH (20:37)
[2021-02-17] MEDS: ZOLPIDEM TARTRATE 10 MG TABLET PO PRN (20:38)
[2021-02-18 06:21] VITALS: BP 118/78
[2021-02-18 08:12] VITALS: BP 121/76
[2021-02-18] MEDS: HydrOXYzine HCL 25 MG TABLET PO SCH ×3 (08:36→16:57)
[2021-02-18] MEDS: LORazepam 2 MG TABLET PO PRN (08:37)
[2021-02-18] MEDS: MULTIVITAMINS WITH MINERALS, THERAPEUTIC TABLET PO SCH (08:42)
[2021-02-18 16:13] VITALS: BP 139/88
[2021-02-18] MEDS: OLANZapine 10 MG TABLET PO SCH (20:53)
[2021-02-18] MEDS: ZOLPIDEM TARTRATE 10 MG TABLET PO PRN (20:53)
[2021-02-19 05:41] VITALS: BP 109/73
[2021-02-19 08:12] VITALS: BP 111/70
[2021-02-19] MEDS: HydrOXYzine HCL 25 MG TABLET PO SCH ×3 (09:09→16:22)
[2021-02-19] MEDS: MULTIVITAMINS WITH MINERALS, THERAPEUTIC TABLET PO SCH (09:09)
[2021-02-19 16:19] VITALS: BP 141/81
[2021-02-19] MEDS: OLANZapine 10 MG TABLET PO SCH (20:15)
[2021-02-20 05:52] VITALS: BP 111/78
[2021-02-20 08:26] VITALS: BP 124/80
[2021-02-20] MEDS: MULTIVITAMINS WITH MINERALS, THERAPEUTIC TABLET PO SCH (08:39)
[2021-02-20] MEDS: LORazepam 2 MG TABLET PO PRN ×2 (08:39→16:38)
[2021-02-20] MEDS: HydrOXYzine HCL 25 MG TABLET PO SCH ×3 (08:39→16:37)
[2021-02-20 16:20] VITALS: BP 101/69
[2021-02-20] MEDS: OLANZapine 10 MG TABLET PO SCH (20:48)
[2021-02-20] MEDS: ZOLPIDEM TARTRATE 10 MG TABLET PO PRN (20:48)
[2021-02-21 02:58] VITALS: BP 121/68
[2021-02-21 08:12] VITALS: BP 128/78
[2021-02-21] MEDS: HydrOXYzine HCL 25 MG TABLET PO SCH ×3 (08:42→16:24)
[2021-02-21] MEDS: MULTIVITAMINS WITH MINERALS, THERAPEUTIC TABLET PO SCH (08:42)
[2021-02-21 16:20] VITALS: BP 109/70
[2021-02-21] MEDS: OLANZapine 10 MG TABLET PO SCH (20:57)
[2021-02-21] MEDS: ZOLPIDEM TARTRATE 10 MG TABLET PO PRN (20:57)
[2021-02-22 02:16] VITALS: BP 118/74
[2021-02-22] MEDS: MULTIVITAMINS WITH MINERALS, THERAPEUTIC TABLET PO SCH (08:19)
[2021-02-22] MEDS: LORazepam 2 MG TABLET PO PRN ×2 (08:19→16:51)
[2021-02-22] MEDS: HydrOXYzine HCL 25 MG TABLET PO SCH ×3 (08:19→16:52)
[2021-02-22 08:22] VITALS: BP 114/78
[2021-02-22 16:07] VITALS: BP 111/72
[2021-02-22] MEDS: OLANZapine 10 MG TABLET PO SCH (20:40)
[2021-02-22] MEDS: ZOLPIDEM TARTRATE 10 MG TABLET PO PRN (20:40)
[2021-02-23 00:09] VITALS: BP 108/66
[2021-02-23] MEDS: HydrOXYzine HCL 25 MG TABLET PO SCH ×3 (08:10→16:24)
[2021-02-23] MEDS: MULTIVITAMINS WITH MINERALS, THERAPEUTIC TABLET PO SCH (08:10)
[2021-02-23] MEDS: LORazepam 2 MG TABLET PO PRN (08:10)
[2021-02-23 08:15] VITALS: BP 105/64
[2021-02-23 16:04] VITALS: BP 108/70
[2021-02-23] MEDS: OLANZapine 10 MG TABLET PO SCH (20:31)
[2021-02-24 02:28] VITALS: BP 105/61
[2021-02-24] MEDS: MULTIVITAMINS WITH MINERALS, THERAPEUTIC TABLET PO SCH (08:10)
[2021-02-24] MEDS: HydrOXYzine HCL 25 MG TABLET PO SCH ×3 (08:10→16:29)
[2021-02-24] MEDS: LORazepam 2 MG TABLET PO PRN (08:10)
[2021-02-24 08:36] VITALS: BP 108/71
[2021-02-24 16:39] VITALS: BP 126/76
[2021-02-24] MEDS: OLANZapine 10 MG TABLET PO SCH (20:42)
[2021-02-25 01:31] VITALS: BP 108/75
[2021-02-25] MEDS: LORazepam 2 MG TABLET PO PRN ×3 (08:07→22:37)
[2021-02-25] MEDS: HydrOXYzine HCL 25 MG TABLET PO SCH ×3 (08:07→16:16)
[2021-02-25] MEDS: MULTIVITAMINS WITH MINERALS, THERAPEUTIC TABLET PO SCH (08:07)
[2021-02-25 08:48] VITALS: BP 114/71
[2021-02-25 16:18] VITALS: BP 107/70
[2021-02-25] MEDS: OLANZapine 10 MG TABLET PO SCH (20:41)
[2021-02-25] MEDS: ZOLPIDEM TARTRATE 10 MG TABLET PO PRN (20:41)
[2021-02-26 04:33] VITALS: BP 123/67
[2021-02-26 08:10] VITALS: BP 110/68
[2021-02-26] MEDS: HydrOXYzine HCL 25 MG TABLET PO SCH ×3 (08:17→17:04)
[2021-02-26] MEDS: LORazepam 2 MG TABLET PO PRN (08:17)
[2021-02-26] MEDS: MULTIVITAMINS WITH MINERALS, THERAPEUTIC TABLET PO SCH (08:17)
[2021-02-26 16:03] VITALS: BP 118/84
[2021-02-26] MEDS: OLANZapine 10 MG TABLET PO SCH (20:22)
[2021-02-27 06:23] VITALS: BP 132/72
[2021-02-27 08:15] VITALS: BP 100/63
[2021-02-27] MEDS: HydrOXYzine HCL 25 MG TABLET PO SCH ×3 (08:42→16:53)
[2021-02-27] MEDS: MULTIVITAMINS WITH MINERALS, THERAPEUTIC TABLET PO SCH (08:44)
[2021-02-27 16:13] VITALS: BP 129/83
[2021-02-27] MEDS: OLANZapine 10 MG TABLET PO SCH (21:06)
[2021-02-28 05:54] VITALS: BP 124/79
[2021-02-28 08:14] VITALS: BP 121/68
[2021-02-28] MEDS: MULTIVITAMINS WITH MINERALS, THERAPEUTIC TABLET PO SCH (08:25)
[2021-02-28] MEDS: HydrOXYzine HCL 25 MG TABLET PO SCH ×3 (08:25→16:48)
[2021-02-28 16:12] VITALS: BP 132/88
[2021-02-28] MEDS: HALOPERIDOL 5 MG TABLET PO PRN (16:48)
[2021-02-28] MEDS: OLANZapine 10 MG TABLET PO SCH (20:09)
[2021-03-01 04:31] VITALS: BP 128/76
[2021-03-01 08:07] VITALS: BP 124/74
[2021-03-01] MEDS: MULTIVITAMINS WITH MINERALS, THERAPEUTIC TABLET PO SCH (08:15)
[2021-03-01] MEDS: HydrOXYzine HCL 25 MG TABLET PO SCH ×3 (08:15→17:00)
[2021-03-01 16:07] VITALS: BP 148/77
[2021-03-01] MEDS: OLANZapine 10 MG TABLET PO SCH (20:26)
[2021-03-02 02:41] VITALS: BP 128/71
[2021-03-02] MEDS: HydrOXYzine HCL 25 MG TABLET PO SCH ×3 (08:11→16:09)
[2021-03-02] MEDS: MULTIVITAMINS WITH MINERALS, THERAPEUTIC TABLET PO SCH (08:11)
[2021-03-02 08:20] VITALS: BP 116/70
[2021-03-02 16:06] VITALS: BP 113/72
[2021-03-02] MEDS: ZOLPIDEM TARTRATE 10 MG TABLET PO PRN (20:37)
[2021-03-02] MEDS: OLANZapine 10 MG TABLET PO SCH (20:37)
[2021-03-03 04:00] VITALS: BP 119/71
[2021-03-03 08:08] VITALS: BP 143/85
[2021-03-03] MEDS: HALOPERIDOL 5 MG TABLET PO PRN (08:41)
[2021-03-03] MEDS: HydrOXYzine HCL 25 MG TABLET PO SCH ×3 (08:41→17:03)
[2021-03-03] MEDS: MULTIVITAMINS WITH MINERALS, THERAPEUTIC TABLET PO SCH (08:42)
[2021-03-03 16:05] VITALS: BP 117/76
[2021-03-03] MEDS: ZOLPIDEM TARTRATE 10 MG TABLET PO PRN (20:27)
[2021-03-03] MEDS: OLANZapine 10 MG TABLET PO SCH (20:27)
[2021-03-04 05:30] VITALS: BP 119/78
[2021-03-04] MEDS: MULTIVITAMINS WITH MINERALS, THERAPEUTIC TABLET PO SCH (08:21)
[2021-03-04] MEDS: HydrOXYzine HCL 25 MG TABLET PO SCH ×3 (08:21→16:37)
[2021-03-04 08:50] VITALS: BP 124/75
[2021-03-04 16:07] VITALS: BP 116/76
[2021-03-04] MEDS: OLANZapine 10 MG TABLET PO SCH (20:35)
[2021-03-04] MEDS: ZOLPIDEM TARTRATE 10 MG TABLET PO PRN (20:35)
[2021-03-05 06:04] VITALS: BP 151/88
[2021-03-05] MEDS: MULTIVITAMINS WITH MINERALS, THERAPEUTIC TABLET PO SCH (08:22)
[2021-03-05] MEDS: HydrOXYzine HCL 25 MG TABLET PO SCH ×3 (08:22→17:15)
[2021-03-05 08:27] VITALS: BP 116/68
[2021-03-05 16:10] VITALS: BP 124/70
[2021-03-05] MEDS: OLANZapine 10 MG TABLET PO SCH (20:11)
[2021-03-06 05:13] VITALS: BP 121/72
[2021-03-06 08:44] VITALS: BP 121/67
[2021-03-06] MEDS: HydrOXYzine HCL 25 MG TABLET PO SCH ×3 (09:16→16:37)
[2021-03-06] MEDS: MULTIVITAMINS WITH MINERALS, THERAPEUTIC TABLET PO SCH (09:37)
[2021-03-06] MEDS: LORazepam 2 MG TABLET PO PRN (12:26)
[2021-03-06 16:02] VITALS: BP 124/78
[2021-03-06] MEDS: OLANZapine 10 MG TABLET PO SCH (20:51)
[2021-03-06] MEDS: ZOLPIDEM TARTRATE 10 MG TABLET PO PRN (20:51)
[2021-03-07 05:11] VITALS: BP 119/67
[2021-03-07 08:24] VITALS: BP 114/70
[2021-03-07] MEDS: HydrOXYzine HCL 25 MG TABLET PO SCH ×3 (08:30→16:58)
[2021-03-07] MEDS: MULTIVITAMINS WITH MINERALS, THERAPEUTIC TABLET PO SCH (08:30)
[2021-03-07] MEDS: LORazepam 2 MG TABLET PO PRN (08:30)
[2021-03-07 16:09] VITALS: BP 109/71
[2021-03-07] MEDS: OLANZapine 10 MG TABLET PO SCH (20:58)
[2021-03-07] MEDS: ZOLPIDEM TARTRATE 10 MG TABLET PO PRN (20:58)
[2021-03-08 04:39] VITALS: BP 117/84
[2021-03-08 08:09] VITALS: BP 110/66
[2021-03-08] MEDS: HydrOXYzine HCL 25 MG TABLET PO SCH ×3 (08:51→16:57)
[2021-03-08] MEDS: MULTIVITAMINS WITH MINERALS, THERAPEUTIC TABLET PO SCH (08:51)
[2021-03-08 16:21] VITALS: BP 108/67
[2021-03-08] MEDS: OLANZapine 10 MG TABLET PO SCH (20:35)
[2021-03-08] MEDS: ZOLPIDEM TARTRATE 10 MG TABLET PO PRN (20:35)
[2021-03-09 00:12] VITALS: BP 106/62
[2021-03-09 08:20] VITALS: BP 138/85
[2021-03-09] MEDS: HydrOXYzine HCL 25 MG TABLET PO SCH ×3 (08:22→16:33)
[2021-03-09] MEDS: MULTIVITAMINS WITH MINERALS, THERAPEUTIC TABLET PO SCH (08:22)
[2021-03-09 16:10] VITALS: BP 142/82
[2021-03-09] MEDS: OLANZapine 10 MG TABLET PO SCH (20:41)
[2021-03-10 03:35] VITALS: BP 128/81
[2021-03-10] MEDS: MULTIVITAMINS WITH MINERALS, THERAPEUTIC TABLET PO SCH (08:25)
[2021-03-10] MEDS: HydrOXYzine HCL 25 MG TABLET PO SCH ×3 (08:25→16:39)
[2021-03-10] MEDS: LORazepam 2 MG TABLET PO PRN (08:25)
[2021-03-10 09:09] VITALS: BP_SYST 114; BP_SYST 139; BP_DIAS 77; BP_DIAS 80
[2021-03-10 16:08] VITALS: BP 117/74
[2021-03-10] MEDS: OLANZapine 10 MG TABLET PO SCH (20:24)
[2021-03-10] MEDS: ZOLPIDEM TARTRATE 10 MG TABLET PO PRN (20:25)
[2021-03-11 04:08] VITALS: BP 112/70
[2021-03-11 08:28] VITALS: BP 126/77
[2021-03-11] MEDS: HydrOXYzine HCL 25 MG TABLET PO SCH ×3 (08:37→16:23)
[2021-03-11] MEDS: MULTIVITAMINS WITH MINERALS, THERAPEUTIC TABLET PO SCH (08:38)
[2021-03-11 16:06] VITALS: BP 126/80
[2021-03-11] MEDS: OLANZapine 10 MG TABLET PO SCH (20:34)
[2021-03-11] MEDS: ZOLPIDEM TARTRATE 10 MG TABLET PO PRN (20:34)
[2021-03-12 00:23] VITALS: BP 119/74
[2021-03-12] MEDS: HydrOXYzine HCL 25 MG TABLET PO SCH ×3 (08:28→16:45)
[2021-03-12] MEDS: MULTIVITAMINS WITH MINERALS, THERAPEUTIC TABLET PO SCH (08:28)
[2021-03-12 08:32] VITALS: BP 112/72
[2021-03-12 16:19] VITALS: BP 116/78
[2021-03-12] MEDS: OLANZapine 10 MG TABLET PO SCH (20:39)
[2021-03-12] MEDS: ZOLPIDEM TARTRATE 10 MG TABLET PO PRN (20:39)
[2021-03-13 00:34] VITALS: BP 107/69
[2021-03-13 08:32] VITALS: BP 115/70
[2021-03-13] MEDS: HydrOXYzine HCL 25 MG TABLET PO SCH ×3 (09:08→17:16)
[2021-03-13] MEDS: HALOPERIDOL 5 MG TABLET PO PRN (09:08)
[2021-03-13] MEDS: MULTIVITAMINS WITH MINERALS, THERAPEUTIC TABLET PO SCH (09:08)
[2021-03-13 16:05] VITALS: BP 101/63
[2021-03-13] MEDS: OLANZapine 10 MG TABLET PO SCH (20:20)
[2021-03-14 06:08] VITALS: BP 131/77
[2021-03-14 08:31] VITALS: BP 126/73
[2021-03-14] MEDS: MULTIVITAMINS WITH MINERALS, THERAPEUTIC TABLET PO SCH (08:34)
[2021-03-14] MEDS: HydrOXYzine HCL 25 MG TABLET PO SCH ×3 (08:34→17:27)
[2021-03-14 16:12] VITALS: BP 123/71
[2021-03-14] MEDS: OLANZapine 10 MG TABLET PO SCH (20:16)
[2021-03-15 05:44] VITALS: BP 125/77
[2021-03-15 08:00] VITALS: BP 123/74
[2021-03-15] MEDS: MULTIVITAMINS WITH MINERALS, THERAPEUTIC TABLET PO SCH (08:26)
[2021-03-15] MEDS: LORazepam 2 MG TABLET PO PRN (08:26)
[2021-03-15] MEDS: HydrOXYzine HCL 25 MG TABLET PO SCH ×3 (08:26→16:34)
[2021-03-15 16:04] VITALS: BP 109/70
[2021-03-15] MEDS: OLANZapine 10 MG TABLET PO SCH (20:20)
[2021-03-15] MEDS: ZOLPIDEM TARTRATE 10 MG TABLET PO PRN (20:21)
[2021-03-16 05:26] VITALS: BP 122/71
[2021-03-16] MEDS: MULTIVITAMINS WITH MINERALS, THERAPEUTIC TABLET PO SCH (08:23)
[2021-03-16] MEDS: LORazepam 2 MG TABLET PO PRN ×2 (08:23→16:33)
[2021-03-16] MEDS: HydrOXYzine HCL 25 MG TABLET PO SCH ×3 (08:23→16:33)
[2021-03-16 16:28] VITALS: BP 124/74
[2021-03-16] MEDS: OLANZapine 10 MG TABLET PO SCH (20:32)
[2021-03-16] MEDS: ZOLPIDEM TARTRATE 10 MG TABLET PO PRN (20:32)
[2021-03-17 05:33] VITALS: BP 120/70
[2021-03-17 08:25] VITALS: BP 130/61
[2021-03-17] MEDS: LORazepam 2 MG TABLET PO PRN ×2 (08:30→16:22)
[2021-03-17] MEDS: HydrOXYzine HCL 25 MG TABLET PO SCH ×3 (08:30→16:22)
[2021-03-17] MEDS: MULTIVITAMINS WITH MINERALS, THERAPEUTIC TABLET PO SCH (08:30)
[2021-03-17 16:07] VITALS: BP 111/71
[2021-03-17] MEDS: ZOLPIDEM TARTRATE 10 MG TABLET PO PRN (20:18)
[2021-03-17] MEDS: OLANZapine 10 MG TABLET PO SCH (20:18)
[2021-03-18 04:57] VITALS: BP 112/68
[2021-03-18] MEDS: MULTIVITAMINS WITH MINERALS, THERAPEUTIC TABLET PO SCH (08:39)
[2021-03-18] MEDS: HydrOXYzine HCL 25 MG TABLET PO SCH ×3 (08:39→16:51)
[2021-03-18 16:31] VITALS: BP 129/75
[2021-03-18] MEDS: OLANZapine 10 MG TABLET PO SCH (20:39)
[2021-03-18] MEDS: ZOLPIDEM TARTRATE 10 MG TABLET PO PRN (20:39)
[2021-03-19 05:53] VITALS: BP 124/72
[2021-03-19] MEDS: MULTIVITAMINS WITH MINERALS, THERAPEUTIC TABLET PO SCH (09:05)
[2021-03-19] MEDS: HydrOXYzine HCL 25 MG TABLET PO SCH ×3 (09:07→16:51)
[2021-03-19 16:10] VITALS: BP 117/72
[2021-03-19] MEDS: LORazepam 2 MG TABLET PO PRN (17:09)
[2021-03-19] MEDS: OLANZapine 10 MG TABLET PO SCH (20:36)
[2021-03-20 05:11] VITALS: BP 119/72
[2021-03-20] MEDS: HydrOXYzine HCL 25 MG TABLET PO SCH ×3 (08:23→16:30)
[2021-03-20] MEDS: MULTIVITAMINS WITH MINERALS, THERAPEUTIC TABLET PO SCH (08:23)
[2021-03-20] MEDS: LORazepam 2 MG TABLET PO PRN ×2 (08:23→16:30)
[2021-03-20 08:33] VITALS: BP 122/78
[2021-03-20 16:21] VITALS: BP 104/66
[2021-03-20] MEDS: ZOLPIDEM TARTRATE 10 MG TABLET PO PRN (20:33)
[2021-03-20] MEDS: OLANZapine 10 MG TABLET PO SCH (20:33)
[2021-03-21 06:32] VITALS: BP 120/81
[2021-03-21] MEDS: LORazepam 2 MG TABLET PO PRN ×2 (08:30→16:27)
[2021-03-21] MEDS: MULTIVITAMINS WITH MINERALS, THERAPEUTIC TABLET PO SCH (08:30)
[2021-03-21] MEDS: HydrOXYzine HCL 25 MG TABLET PO SCH ×3 (08:30→16:27)
[2021-03-21 09:16] VITALS: BP 117/70
[2021-03-21 16:27] VITALS: BP 111/71
[2021-03-21] MEDS: ZOLPIDEM TARTRATE 10 MG TABLET PO PRN (20:40)
[2021-03-21] MEDS: OLANZapine 10 MG TABLET PO SCH (20:40)
[2021-03-22] MEDS: LORazepam 2 MG TABLET PO PRN ×2 (08:00→16:32)
[2021-03-22] MEDS: MULTIVITAMINS WITH MINERALS, THERAPEUTIC TABLET PO SCH (08:36)
[2021-03-22] MEDS: HydrOXYzine HCL 25 MG TABLET PO SCH ×3 (08:36→16:32)
[2021-03-22 08:46] VITALS: BP 106/62
[2021-03-22 16:07] VITALS: BP 102/68
[2021-03-22] MEDS: OLANZapine 10 MG TABLET PO SCH (20:33)
[2021-03-22] MEDS: ZOLPIDEM TARTRATE 10 MG TABLET PO PRN (20:33)
[2021-03-23 05:56] VITALS: BP 104/70
[2021-03-23] MEDS: MULTIVITAMINS WITH MINERALS, THERAPEUTIC TABLET PO SCH (08:17)
[2021-03-23] MEDS: LORazepam 2 MG TABLET PO PRN ×2 (08:17→16:23)
[2021-03-23] MEDS: HydrOXYzine HCL 25 MG TABLET PO SCH ×3 (08:17→16:02)
[2021-03-23 08:44] VITALS: BP 108/68
[2021-03-23 16:14] VITALS: BP 105/69
[2021-03-23] MEDS: OLANZapine 10 MG TABLET PO SCH (19:38)
[2021-03-24 03:05] VITALS: BP 110/71
[2021-03-24] MEDS: LORazepam 2 MG TABLET PO PRN ×2 (08:00→16:14)
[2021-03-24] MEDS: MULTIVITAMINS WITH MINERALS, THERAPEUTIC TABLET PO SCH (08:17)
[2021-03-24] MEDS: HydrOXYzine HCL 25 MG TABLET PO SCH ×3 (08:17→16:14)
[2021-03-24 08:18] VITALS: BP 121/70
[2021-03-24 16:10] VITALS: BP 105/66
[2021-03-24] MEDS: OLANZapine 10 MG TABLET PO SCH (20:24)
[2021-03-24] MEDS: ZOLPIDEM TARTRATE 10 MG TABLET PO PRN (20:24)
[2021-03-25 05:53] VITALS: BP 126/63
[2021-03-25] MEDS: MULTIVITAMINS WITH MINERALS, THERAPEUTIC TABLET PO SCH (08:08)
[2021-03-25] MEDS: HydrOXYzine HCL 25 MG TABLET PO SCH ×3 (08:08→16:22)
[2021-03-25] MEDS: LORazepam 2 MG TABLET PO PRN (08:08)
[2021-03-25 08:14] VITALS: BP 120/70
[2021-03-25] MEDS: HALOPERIDOL 5 MG TABLET PO PRN (16:22)
[2021-03-25 16:31] VITALS: BP 113/72
[2021-03-25] MEDS: ZOLPIDEM TARTRATE 10 MG TABLET PO PRN (20:22)
[2021-03-25] MEDS: OLANZapine 10 MG TABLET PO SCH (20:22)
[2021-03-26 04:40] VITALS: BP 110/69
[2021-03-26] MEDS: LORazepam 2 MG TABLET PO PRN (08:00)
[2021-03-26] MEDS: HydrOXYzine HCL 25 MG TABLET PO SCH ×3 (08:25→16:32)
[2021-03-26] MEDS: MULTIVITAMINS WITH MINERALS, THERAPEUTIC TABLET PO SCH (08:25)
[2021-03-26 08:45] VITALS: BP 121/70
[2021-03-26] MEDS: HALOPERIDOL 5 MG TABLET PO PRN (16:32)
[2021-03-26 16:34] VITALS: BP 108/75
[2021-03-26] MEDS: ZOLPIDEM TARTRATE 10 MG TABLET PO PRN (20:48)
[2021-03-26] MEDS: OLANZapine 10 MG TABLET PO SCH (20:48)
[2021-03-27 05:46] VITALS: BP 110/75
[2021-03-27 08:25] VITALS: BP 118/74
[2021-03-27 08:26] VITALS: BP 120/81
[2021-03-27] MEDS: MULTIVITAMINS WITH MINERALS, THERAPEUTIC TABLET PO SCH (08:35)
[2021-03-27] MEDS: HydrOXYzine HCL 25 MG TABLET PO SCH ×3 (08:35→16:51)
[2021-03-27 16:10] VITALS: BP 119/76
[2021-03-27] MEDS: HALOPERIDOL 5 MG TABLET PO PRN (16:51)
[2021-03-27] MEDS: ZOLPIDEM TARTRATE 10 MG TABLET PO PRN (20:16)
[2021-03-27] MEDS: OLANZapine 10 MG TABLET PO SCH (20:16)
[2021-03-28 05:55] VITALS: BP 101/69
[2021-03-28 08:00] VITALS: BP 128/81
[2021-03-28] MEDS: MULTIVITAMINS WITH MINERALS, THERAPEUTIC TABLET PO SCH (08:09)
[2021-03-28] MEDS: HydrOXYzine HCL 25 MG TABLET PO SCH ×3 (08:09→16:30)
[2021-03-28 16:04] VITALS: BP 138/87
[2021-03-28] MEDS: HALOPERIDOL 5 MG TABLET PO PRN (16:30)
[2021-03-28] MEDS: OLANZapine 10 MG TABLET PO SCH (20:43)
[2021-03-28] MEDS: ZOLPIDEM TARTRATE 10 MG TABLET PO PRN (21:39)
[2021-03-29 01:16] VITALS: BP 121/79
[2021-03-29] MEDS: MULTIVITAMINS WITH MINERALS, THERAPEUTIC TABLET PO SCH (08:34)
[2021-03-29] MEDS: HydrOXYzine HCL 25 MG TABLET PO SCH ×3 (08:34→16:54)
[2021-03-29 09:25] VITALS: BP 136/60
[2021-03-29 16:06] VITALS: BP 113/77
[2021-03-29] MEDS: HALOPERIDOL 5 MG TABLET PO PRN (16:54)
[2021-03-29] MEDS: OLANZapine 10 MG TABLET PO SCH (20:56)
[2021-03-29] MEDS: ZOLPIDEM TARTRATE 10 MG TABLET PO PRN (20:56)
[2021-03-30 05:07] VITALS: BP 106/67
[2021-03-30] MEDS: LORazepam 2 MG TABLET PO PRN (08:00)
[2021-03-30 08:30] VITALS: BP 110/71
[2021-03-30] MEDS: HydrOXYzine HCL 25 MG TABLET PO SCH ×3 (08:59→17:40)
[2021-03-30] MEDS: MULTIVITAMINS WITH MINERALS, THERAPEUTIC TABLET PO SCH (08:59)
[2021-03-30 16:14] VITALS: BP 103/67
[2021-03-30] MEDS: HALOPERIDOL 5 MG TABLET PO PRN (17:40)
[2021-03-30] MEDS: ZOLPIDEM TARTRATE 10 MG TABLET PO PRN (20:59)
[2021-03-30] MEDS: OLANZapine 10 MG TABLET PO SCH (20:59)
[2021-03-31 02:43] VITALS: BP 112/76
[2021-03-31] MEDS: LORazepam 2 MG TABLET PO PRN (08:00)
[2021-03-31 08:22] VITALS: BP 120/75
[2021-03-31] MEDS: HydrOXYzine HCL 25 MG TABLET PO SCH ×3 (08:52→16:58)
[2021-03-31] MEDS: MULTIVITAMINS WITH MINERALS, THERAPEUTIC TABLET PO SCH (08:52)
[2021-03-31 16:11] VITALS: BP 112/69
[2021-03-31] MEDS: OLANZapine 10 MG TABLET PO SCH (19:04)
[2021-04-01 00:48] VITALS: BP 110/69
[2021-04-01 08:00] VITALS: BP 132/84
[2021-04-01] MEDS: HydrOXYzine HCL 25 MG TABLET PO SCH ×3 (09:53→17:00)
[2021-04-01] MEDS: MULTIVITAMINS WITH MINERALS, THERAPEUTIC TABLET PO SCH (09:53)
[2021-04-01 16:15] VITALS: BP 126/80
[2021-04-01] MEDS: LORazepam 2 MG TABLET PO PRN (17:00)
[2021-04-01] MEDS: HALOPERIDOL 5 MG TABLET PO PRN (17:00)
[2021-04-01] MEDS: OLANZapine 10 MG TABLET PO SCH (20:29)
[2021-04-01] MEDS: ZOLPIDEM TARTRATE 10 MG TABLET PO PRN (20:29)
[2021-04-02 05:04] VITALS: BP 121/79
[2021-04-02] MEDS: LORazepam 2 MG TABLET PO PRN (08:00)
[2021-04-02] MEDS: MULTIVITAMINS WITH MINERALS, THERAPEUTIC TABLET PO SCH (09:09)
[2021-04-02] MEDS: HydrOXYzine HCL 25 MG TABLET PO SCH ×3 (09:09→16:18)
[2021-04-02 16:13] VITALS: BP 115/75
[2021-04-02] MEDS: OLANZapine 10 MG TABLET PO SCH (20:36)
[2021-04-03 05:47] VITALS: BP 119/78
[2021-04-03] MEDS: LORazepam 2 MG TABLET PO PRN (08:00)
[2021-04-03] MEDS: MULTIVITAMINS WITH MINERALS, THERAPEUTIC TABLET PO SCH (09:23)
[2021-04-03] MEDS: HydrOXYzine HCL 25 MG TABLET PO SCH ×3 (09:23→16:24)
[2021-04-03 16:17] VITALS: BP 116/68
[2021-04-03] MEDS: OLANZapine 10 MG TABLET PO SCH (19:44)
[2021-04-04 04:40] VITALS: BP 118/74
[2021-04-04] MEDS: MULTIVITAMINS WITH MINERALS, THERAPEUTIC TABLET PO SCH (09:40)
[2021-04-04] MEDS: HydrOXYzine HCL 25 MG TABLET PO SCH ×3 (09:40→16:45)
[2021-04-04 09:41] VITALS: BP 116/70
[2021-04-04 16:06] VITALS: BP 122/81
[2021-04-04] MEDS: HALOPERIDOL 5 MG TABLET PO PRN (16:43)
[2021-04-04] MEDS: LORazepam 2 MG TABLET PO PRN (19:10)
[2021-04-04] MEDS: ZOLPIDEM TARTRATE 10 MG TABLET PO PRN (20:39)
[2021-04-04] MEDS: OLANZapine 10 MG TABLET PO SCH (20:39)
[2021-04-05 06:40] VITALS: BP 101/68
[2021-04-05 08:13] VITALS: BP 132/87
[2021-04-05] MEDS: HydrOXYzine HCL 25 MG TABLET PO SCH ×3 (08:56→16:26)
[2021-04-05] MEDS: MULTIVITAMINS WITH MINERALS, THERAPEUTIC TABLET PO SCH (08:56)
[2021-04-05 16:06] VITALS: BP 140/80
[2021-04-05] MEDS: HALOPERIDOL 5 MG TABLET PO PRN (16:26)
[2021-04-05] MEDS: ZOLPIDEM TARTRATE 10 MG TABLET PO PRN (20:23)
[2021-04-05] MEDS: OLANZapine 10 MG TABLET PO SCH (20:23)
[2021-04-06 01:43] VITALS: BP 136/84
[2021-04-06] MEDS: MULTIVITAMINS WITH MINERALS, THERAPEUTIC TABLET PO SCH (08:01)
[2021-04-06] MEDS: HydrOXYzine HCL 25 MG TABLET PO SCH ×3 (08:01→16:17)
[2021-04-06 08:24] VITALS: BP 134/78
[2021-04-06 16:08] VITALS: BP 130/80
[2021-04-06] MEDS: OLANZapine 10 MG TABLET PO SCH (19:38)
[2021-04-07 05:53] VITALS: BP 117/71
[2021-04-07 08:24] VITALS: BP 130/80
[2021-04-07] MEDS: HydrOXYzine HCL 25 MG TABLET PO SCH ×3 (09:03→16:32)
[2021-04-07] MEDS: MULTIVITAMINS WITH MINERALS, THERAPEUTIC TABLET PO SCH (09:03)
[2021-04-07 16:03] VITALS: BP 130/68
[2021-04-07] MEDS: HALOPERIDOL 5 MG TABLET PO PRN (16:32)
[2021-04-07] MEDS: ZOLPIDEM TARTRATE 10 MG TABLET PO PRN (20:19)
[2021-04-07] MEDS: OLANZapine 10 MG TABLET PO SCH (20:19)
[2021-04-08 05:38] VITALS: BP 116/74
[2021-04-08] MEDS: LORazepam 2 MG TABLET PO PRN (08:15)
[2021-04-08 08:31] VITALS: BP 111/74
[2021-04-08] MEDS: MULTIVITAMINS WITH MINERALS, THERAPEUTIC TABLET PO SCH (09:04)
[2021-04-08] MEDS: HydrOXYzine HCL 25 MG TABLET PO SCH ×3 (09:04→16:48)
[2021-04-08 16:09] VITALS: BP 106/67
[2021-04-08] MEDS: ZOLPIDEM TARTRATE 10 MG TABLET PO PRN (20:46)
[2021-04-08] MEDS: OLANZapine 10 MG TABLET PO SCH (20:47)
[2021-04-09] MEDS: LORazepam 2 MG TABLET PO PRN (08:00)
[2021-04-09 08:15] VITALS: BP 113/69
[2021-04-09] MEDS: MULTIVITAMINS WITH MINERALS, THERAPEUTIC TABLET PO SCH (08:35)
[2021-04-09] MEDS: HydrOXYzine HCL 25 MG TABLET PO SCH ×3 (08:35→16:33)
[2021-04-09 16:10] VITALS: BP 120/72
[2021-04-09] MEDS: OLANZapine 10 MG TABLET PO SCH (20:16)
[2021-04-10 04:58] VITALS: BP 116/70
[2021-04-10] MEDS: LORazepam 2 MG TABLET PO PRN (08:00)
[2021-04-10] MEDS: HydrOXYzine HCL 25 MG TABLET PO SCH ×3 (08:24→16:16)
[2021-04-10] MEDS: MULTIVITAMINS WITH MINERALS, THERAPEUTIC TABLET PO SCH (08:24)
[2021-04-10 08:38] VITALS: BP 116/76
[2021-04-10 16:02] VITALS: BP 113/76
[2021-04-10] MEDS: OLANZapine 10 MG TABLET PO SCH (20:44)
[2021-04-11 06:13] VITALS: BP 114/77
[2021-04-11] MEDS: LORazepam 2 MG TABLET PO PRN (08:00)
[2021-04-11] MEDS: HydrOXYzine HCL 25 MG TABLET PO SCH ×3 (08:47→16:01)
[2021-04-11] MEDS: MULTIVITAMINS WITH MINERALS, THERAPEUTIC TABLET PO SCH (08:47)
[2021-04-11 08:53] VITALS: BP 117/68
[2021-04-11 16:24] VITALS: BP 105/70
[2021-04-11] MEDS: OLANZapine 10 MG TABLET PO SCH (20:30)
[2021-04-12 02:13] VITALS: BP 110/68
[2021-04-12] MEDS: LORazepam 2 MG TABLET PO PRN ×2 (08:00→16:58)
[2021-04-12] MEDS: HydrOXYzine HCL 25 MG TABLET PO SCH ×3 (08:48→16:58)
[2021-04-12] MEDS: MULTIVITAMINS WITH MINERALS, THERAPEUTIC TABLET PO SCH (08:48)
[2021-04-12 10:43] VITALS: BP 127/79
[2021-04-12 16:34] VITALS: BP 112/69
[2021-04-12] MEDS: HALOPERIDOL 5 MG TABLET PO PRN (16:58)
[2021-04-12] MEDS: ZOLPIDEM TARTRATE 10 MG TABLET PO PRN (20:41)
[2021-04-12] MEDS: OLANZapine 10 MG TABLET PO SCH (20:41)
[2021-04-13 02:22] VITALS: BP 118/70
[2021-04-13] MEDS: HALOPERIDOL 5 MG TABLET PO PRN (08:05)
[2021-04-13] MEDS: HydrOXYzine HCL 25 MG TABLET PO SCH ×3 (08:05→16:19)
[2021-04-13] MEDS: LORazepam 2 MG TABLET PO PRN (08:06)
[2021-04-13 08:13] VITALS: BP 123/84
[2021-04-13] MEDS: MULTIVITAMINS WITH MINERALS, THERAPEUTIC TABLET PO SCH (08:51)
[2021-04-13 16:09] VITALS: BP 117/77
[2021-04-13] MEDS: OLANZapine 10 MG TABLET PO SCH (20:25)
[2021-04-13] MEDS: ZOLPIDEM TARTRATE 10 MG TABLET PO PRN (20:25)
[2021-04-14 04:50] VITALS: BP 119/72
[2021-04-14] MEDS: HALOPERIDOL 5 MG TABLET PO PRN ×2 (08:24→16:31)
[2021-04-14] MEDS: MULTIVITAMINS WITH MINERALS, THERAPEUTIC TABLET PO SCH (08:24)
[2021-04-14] MEDS: HydrOXYzine HCL 25 MG TABLET PO SCH ×3 (08:24→16:31)
[2021-04-14 13:01] VITALS: BP 110/75
[2021-04-14 16:06] VITALS: BP 118/70
[2021-04-14] MEDS: OLANZapine 10 MG TABLET PO SCH (20:09)
[2021-04-14] MEDS: ZOLPIDEM TARTRATE 10 MG TABLET PO PRN (20:10)
[2021-04-15 06:14] VITALS: BP 133/84
[2021-04-15 08:09] VITALS: BP 114/70
[2021-04-15] MEDS: HydrOXYzine HCL 25 MG TABLET PO SCH ×3 (09:31→16:24)
[2021-04-15] MEDS: MULTIVITAMINS WITH MINERALS, THERAPEUTIC TABLET PO SCH (09:31)
[2021-04-15 16:15] VITALS: BP 118/82
[2021-04-15] MEDS: HALOPERIDOL 5 MG TABLET PO PRN (16:24)
[2021-04-15] MEDS: OLANZapine 10 MG TABLET PO SCH (20:46)
[2021-04-15] MEDS: ZOLPIDEM TARTRATE 10 MG TABLET PO PRN (20:46)
[2021-04-16 04:00] VITALS: BP 116/77
[2021-04-16 08:06] VITALS: BP 123/70
[2021-04-16] MEDS: MULTIVITAMINS WITH MINERALS, THERAPEUTIC TABLET PO SCH (09:20)
[2021-04-16] MEDS: HydrOXYzine HCL 25 MG TABLET PO SCH ×3 (09:20→16:51)
[2021-04-16] MEDS: HALOPERIDOL 5 MG TABLET PO PRN ×2 (09:20→16:51)
[2021-04-16] MEDS: LORazepam 2 MG TABLET PO PRN (12:05)
[2021-04-16 16:04] VITALS: BP 112/72
[2021-04-16] MEDS: OLANZapine 10 MG TABLET PO SCH (21:01)
[2021-04-16] MEDS: ZOLPIDEM TARTRATE 10 MG TABLET PO PRN (21:04)
[2021-04-17 05:03] VITALS: BP 118/74
[2021-04-17 08:13] VITALS: BP 110/72
[2021-04-17] MEDS: HydrOXYzine HCL 25 MG TABLET PO SCH ×3 (08:27→16:19)
[2021-04-17] MEDS: HALOPERIDOL 5 MG TABLET PO PRN ×2 (08:27→16:19)
[2021-04-17] MEDS: MULTIVITAMINS WITH MINERALS, THERAPEUTIC TABLET PO SCH (09:09)
[2021-04-17] MEDS: LORazepam 2 MG TABLET PO PRN (16:19)
[2021-04-17 16:30] VITALS: BP 133/86
[2021-04-17] MEDS: OLANZapine 10 MG TABLET PO SCH (20:31)
[2021-04-17] MEDS: ZOLPIDEM TARTRATE 10 MG TABLET PO PRN (20:31)
[2021-04-18 06:08] VITALS: BP 117/76
[2021-04-18 08:14] VITALS: BP 103/58
[2021-04-18] MEDS: LORazepam 2 MG TABLET PO PRN (08:19)
[2021-04-18] MEDS: HALOPERIDOL 5 MG TABLET PO PRN (08:19)
[2021-04-18] MEDS: HydrOXYzine HCL 25 MG TABLET PO SCH ×3 (08:19→16:28)
[2021-04-18] MEDS: MULTIVITAMINS WITH MINERALS, THERAPEUTIC TABLET PO SCH (08:19)
[2021-04-18 16:05] VITALS: BP 111/66
[2021-04-18] MEDS: OLANZapine 10 MG TABLET PO SCH (20:48)
[2021-04-18] MEDS: ZOLPIDEM TARTRATE 10 MG TABLET PO PRN (20:48)
[2021-04-19 04:50] VITALS: BP 118/75
[2021-04-19 08:11] VITALS: BP 117/77
[2021-04-19] MEDS: MULTIVITAMINS WITH MINERALS, THERAPEUTIC TABLET PO SCH (09:43)
[2021-04-19] MEDS: HydrOXYzine HCL 25 MG TABLET PO SCH ×3 (09:43→16:35)
[2021-04-19 17:31] VITALS: BP 125/73
[2021-04-19] MEDS: OLANZapine 10 MG TABLET PO SCH (20:41)
[2021-04-20 05:07] VITALS: BP 118/80
[2021-04-20] MEDS: HydrOXYzine HCL 25 MG TABLET PO SCH ×3 (08:41→16:13)
[2021-04-20] MEDS: MULTIVITAMINS WITH MINERALS, THERAPEUTIC TABLET PO SCH (08:42)
[2021-04-20 09:19] VITALS: BP 106/71
[2021-04-20 16:24] VITALS: BP 118/81
[2021-04-20] MEDS: OLANZapine 10 MG TABLET PO SCH (20:33)
[2021-04-21 06:15] VITALS: BP 104/62
[2021-04-21 08:15] VITALS: BP 110/69
[2021-04-21] MEDS: HALOPERIDOL 5 MG TABLET PO PRN ×2 (08:35→16:47)
[2021-04-21] MEDS: MULTIVITAMINS WITH MINERALS, THERAPEUTIC TABLET PO SCH (08:35)
[2021-04-21] MEDS: HydrOXYzine HCL 25 MG TABLET PO SCH ×3 (08:35→16:48)
[2021-04-21 16:08] VITALS: BP 130/84
[2021-04-21] MEDS: LORazepam 2 MG TABLET PO PRN (16:48)
[2021-04-21] MEDS: OLANZapine 10 MG TABLET PO SCH (20:18)
[2021-04-21] MEDS: ZOLPIDEM TARTRATE 10 MG TABLET PO PRN (20:18)
[2021-04-22 04:35] VITALS: BP 118/74
[2021-04-22] MEDS: MULTIVITAMINS WITH MINERALS, THERAPEUTIC TABLET PO SCH (08:36)
[2021-04-22] MEDS: HydrOXYzine HCL 25 MG TABLET PO SCH ×3 (08:36→16:25)
[2021-04-22 09:02] VITALS: BP 130/70
[2021-04-22 16:03] VITALS: BP 129/80
[2021-04-22] MEDS: ZOLPIDEM TARTRATE 10 MG TABLET PO PRN (20:37)
[2021-04-22] MEDS: OLANZapine 10 MG TABLET PO SCH (20:53)
[2021-04-23 04:25] VITALS: BP 125/78
[2021-04-23] MEDS: MULTIVITAMINS WITH MINERALS, THERAPEUTIC TABLET PO SCH (08:24)
[2021-04-23] MEDS: HydrOXYzine HCL 25 MG TABLET PO SCH ×3 (08:24→16:34)
[2021-04-23 16:07] VITALS: BP 134/80
[2021-04-23] MEDS: ZOLPIDEM TARTRATE 10 MG TABLET PO PRN (20:28)
[2021-04-23] MEDS: OLANZapine 10 MG TABLET PO SCH (20:28)
[2021-04-24 06:11] VITALS: BP 117/75
[2021-04-24 08:25] VITALS: BP 126/82
[2021-04-24] MEDS: HydrOXYzine HCL 25 MG TABLET PO SCH ×3 (09:01→16:58)
[2021-04-24] MEDS: MULTIVITAMINS WITH MINERALS, THERAPEUTIC TABLET PO SCH (09:01)
[2021-04-24 16:17] VITALS: BP 114/76
[2021-04-24] MEDS: OLANZapine 10 MG TABLET PO SCH (20:12)
[2021-04-25 04:48] VITALS: BP 118/76
[2021-04-25 08:39] VITALS: BP 108/74
[2021-04-25] MEDS: MULTIVITAMINS WITH MINERALS, THERAPEUTIC TABLET PO SCH (08:43)
[2021-04-25] MEDS: HydrOXYzine HCL 25 MG TABLET PO SCH ×3 (08:43→17:33)
[2021-04-25 16:27] VITALS: BP 110/77
[2021-04-25] MEDS: HALOPERIDOL 5 MG TABLET PO PRN (17:45)
[2021-04-25] MEDS: LORazepam 2 MG TABLET PO PRN (17:45)
[2021-04-25] MEDS: OLANZapine 10 MG TABLET PO SCH (21:16)
[2021-04-26 06:01] VITALS: BP 118/74
[2021-04-26] MEDS: LORazepam 2 MG TABLET PO PRN (08:00)
[2021-04-26] MEDS: HydrOXYzine HCL 25 MG TABLET PO SCH ×3 (08:33→16:25)
[2021-04-26] MEDS: MULTIVITAMINS WITH MINERALS, THERAPEUTIC TABLET PO SCH (08:33)
[2021-04-26 08:37] VITALS: BP 118/70
[2021-04-26 16:10] VITALS: BP 137/77
[2021-04-26] MEDS: OLANZapine 10 MG TABLET PO SCH (20:17)
[2021-04-26] MEDS: ZOLPIDEM TARTRATE 10 MG TABLET PO PRN (20:17)
[2021-04-27 06:41] VITALS: BP 126/76
[2021-04-27] MEDS: LORazepam 2 MG TABLET PO PRN (08:10)
[2021-04-27 08:23] VITALS: BP 118/74
[2021-04-27] MEDS: HydrOXYzine HCL 25 MG TABLET PO SCH ×3 (08:33→16:25)
[2021-04-27] MEDS: MULTIVITAMINS WITH MINERALS, THERAPEUTIC TABLET PO SCH (08:33)
[2021-04-27 16:08] VITALS: BP 119/71
[2021-04-27] MEDS: OLANZapine 10 MG TABLET PO SCH (20:13)
[2021-04-27] MEDS: ZOLPIDEM TARTRATE 10 MG TABLET PO PRN (20:13)
[2021-04-28 05:39] VITALS: BP 122/70
[2021-04-28 08:18] VITALS: BP 121/68
[2021-04-28] MEDS: LORazepam 2 MG TABLET PO PRN (08:39)
[2021-04-28] MEDS: HydrOXYzine HCL 25 MG TABLET PO SCH ×3 (08:39→16:21)
[2021-04-28] MEDS: HALOPERIDOL 5 MG TABLET PO PRN (08:39)
[2021-04-28] MEDS: MULTIVITAMINS WITH MINERALS, THERAPEUTIC TABLET PO SCH (09:01)
[2021-04-28 16:17] VITALS: BP 115/74
[2021-04-28] MEDS: OLANZapine 10 MG TABLET PO SCH (20:37)
[2021-04-28] MEDS: ZOLPIDEM TARTRATE 10 MG TABLET PO PRN (20:37)
[2021-04-29 06:31] VITALS: BP 117/73
[2021-04-29 08:17] VITALS: BP 127/78
[2021-04-29] MEDS: HydrOXYzine HCL 25 MG TABLET PO SCH ×3 (09:32→16:59)
[2021-04-29] MEDS: MULTIVITAMINS WITH MINERALS, THERAPEUTIC TABLET PO SCH (09:32)
[2021-04-29 16:08] VITALS: BP 124/70
[2021-04-29] MEDS: LORazepam 2 MG TABLET PO PRN (16:59)
[2021-04-29] MEDS: OLANZapine 10 MG TABLET PO SCH (20:02)
[2021-04-30 00:10] VITALS: BP 108/67
[2021-04-30] MEDS: LORazepam 2 MG TABLET PO PRN (08:00)
[2021-04-30 08:34] VITALS: BP 111/72
[2021-04-30] MEDS: MULTIVITAMINS WITH MINERALS, THERAPEUTIC TABLET PO SCH (08:42)
[2021-04-30] MEDS: HydrOXYzine HCL 25 MG TABLET PO SCH ×3 (08:42→16:52)
[2021-04-30 16:09] VITALS: BP 108/69
[2021-04-30] MEDS: OLANZapine 10 MG TABLET PO SCH (21:01)
[2021-05-01 05:45] VITALS: BP 109/75
[2021-05-01 08:02] VITALS: BP 107/70
[2021-05-01] MEDS: MULTIVITAMINS WITH MINERALS, THERAPEUTIC TABLET PO SCH (08:31)
[2021-05-01] MEDS: HydrOXYzine HCL 25 MG TABLET PO SCH ×3 (08:31→17:05)
[2021-05-01 16:09] VITALS: BP 106/71
[2021-05-01] MEDS: LORazepam 2 MG TABLET PO PRN (17:05)
[2021-05-01] MEDS: ZOLPIDEM TARTRATE 10 MG TABLET PO PRN (20:22)
[2021-05-01] MEDS: OLANZapine 10 MG TABLET PO SCH (20:22)
[2021-05-02 08:29] VITALS: BP 113/70
[2021-05-02] MEDS: HydrOXYzine HCL 25 MG TABLET PO SCH ×3 (08:47→16:59)
[2021-05-02] MEDS: LORazepam 2 MG TABLET PO PRN (08:47)
[2021-05-02] MEDS: MULTIVITAMINS WITH MINERALS, THERAPEUTIC TABLET PO SCH (08:47)
[2021-05-02] MEDS: HALOPERIDOL 5 MG TABLET PO PRN (08:47)
[2021-05-02 16:12] VITALS: BP 104/64
[2021-05-02] MEDS: OLANZapine 10 MG TABLET PO SCH (20:44)
[2021-05-02] MEDS: ZOLPIDEM TARTRATE 10 MG TABLET PO PRN (20:44)
[2021-05-03 06:37] VITALS: BP 107/66
[2021-05-03 08:23] VITALS: BP 128/81
[2021-05-03] MEDS: HydrOXYzine HCL 25 MG TABLET PO SCH ×3 (08:49→16:11)
[2021-05-03] MEDS: MULTIVITAMINS WITH MINERALS, THERAPEUTIC TABLET PO SCH (08:50)
[2021-05-03] MEDS: LORazepam 2 MG TABLET PO PRN (09:05)
[2021-05-03 17:34] VITALS: BP 118/76
[2021-05-03] MEDS: OLANZapine 10 MG TABLET PO SCH (20:44)
[2021-05-04 05:43] VITALS: BP 116/70
[2021-05-04] MEDS: MULTIVITAMINS WITH MINERALS, THERAPEUTIC TABLET PO SCH (08:15)
[2021-05-04] MEDS: LORazepam 2 MG TABLET PO PRN (08:15)
[2021-05-04] MEDS: HydrOXYzine HCL 25 MG TABLET PO SCH ×3 (08:15→16:39)
[2021-05-04 09:03] VITALS: BP 135/80
[2021-05-04 17:38] VITALS: BP 111/61
[2021-05-04] MEDS: OLANZapine 10 MG TABLET PO SCH (20:10)
[2021-05-04] MEDS: ZOLPIDEM TARTRATE 10 MG TABLET PO PRN (20:34)
[2021-05-05 05:33] VITALS: BP 116/80
[2021-05-05 07:55] VITALS: BP 111/72
[2021-05-05] MEDS: MULTIVITAMINS WITH MINERALS, THERAPEUTIC TABLET PO SCH (08:57)
[2021-05-05] MEDS: HydrOXYzine HCL 25 MG TABLET PO SCH ×3 (08:57→17:02)
[2021-05-05 16:24] VITALS: BP 112/74
[2021-05-05] MEDS: LORazepam 2 MG TABLET PO PRN (17:02)
[2021-05-05] MEDS: ZOLPIDEM TARTRATE 10 MG TABLET PO PRN (20:15)
[2021-05-05] MEDS: OLANZapine 10 MG TABLET PO SCH (20:15)
[2021-05-06 06:07] VITALS: BP 117/70
[2021-05-06] MEDS: HydrOXYzine HCL 25 MG TABLET PO SCH ×3 (08:20→16:48)
[2021-05-06] MEDS: MULTIVITAMINS WITH MINERALS, THERAPEUTIC TABLET PO SCH (08:20)
[2021-05-06 08:21] VITALS: BP 119/78
[2021-05-06 16:12] VITALS: BP 115/77
[2021-05-06] MEDS: LORazepam 2 MG TABLET PO PRN (16:48)
[2021-05-06] MEDS: OLANZapine 10 MG TABLET PO SCH (20:32)
[2021-05-06] MEDS: ZOLPIDEM TARTRATE 10 MG TABLET PO PRN (20:32)
[2021-05-07 01:02] VITALS: BP 133/78
[2021-05-07] MEDS: MULTIVITAMINS WITH MINERALS, THERAPEUTIC TABLET PO SCH (08:16)
[2021-05-07] MEDS: LORazepam 2 MG TABLET PO PRN (08:16)
[2021-05-07] MEDS: HydrOXYzine HCL 25 MG TABLET PO SCH ×3 (08:16→16:38)
[2021-05-07 08:17] VITALS: BP 127/87
[2021-05-07 16:24] VITALS: BP 128/73
[2021-05-07] MEDS: OLANZapine 10 MG TABLET PO SCH (20:26)
[2021-05-07] MEDS: ZOLPIDEM TARTRATE 10 MG TABLET PO PRN (20:26)
[2021-05-08 05:39] VITALS: BP 111/65
[2021-05-08 08:13] VITALS: BP 110/68
[2021-05-08] MEDS: HydrOXYzine HCL 25 MG TABLET PO SCH ×3 (08:27→16:23)
[2021-05-08] MEDS: MULTIVITAMINS WITH MINERALS, THERAPEUTIC TABLET PO SCH (08:27)
[2021-05-08 16:28] VITALS: BP 112/73
[2021-05-08] MEDS: OLANZapine 10 MG TABLET PO SCH (20:04)
[2021-05-09 05:23] VITALS: BP 112/75
[2021-05-09 08:08] VITALS: BP 117/78
[2021-05-09] MEDS: HydrOXYzine HCL 25 MG TABLET PO SCH ×3 (08:57→17:43)
[2021-05-09] MEDS: MULTIVITAMINS WITH MINERALS, THERAPEUTIC TABLET PO SCH (08:57)
[2021-05-09 17:27] VITALS: BP 125/86
[2021-05-09] MEDS: OLANZapine 10 MG TABLET PO SCH (20:24)
[2021-05-10 05:52] VITALS: BP 121/84
[2021-05-10] MEDS: MULTIVITAMINS WITH MINERALS, THERAPEUTIC TABLET PO SCH (08:11)
[2021-05-10] MEDS: HydrOXYzine HCL 25 MG TABLET PO SCH ×3 (08:11→16:19)
[2021-05-10] MEDS: LORazepam 2 MG TABLET PO PRN (13:23)
[2021-05-10 16:35] VITALS: BP 126/79
[2021-05-10] MEDS: ZOLPIDEM TARTRATE 10 MG TABLET PO PRN (20:38)
[2021-05-10] MEDS: OLANZapine 10 MG TABLET PO SCH (20:38)
[2021-05-11 04:11] VITALS: BP 122/81
[2021-05-11 08:01] LABS: ALANINE AMINOTRANSFERASE 35 U/L (12-78); ALBUMIN 3.4 g/dL (3.4-5.0); ALKALINE PHOSPHATASE 85 U/L (46-116); ANION GAP 6 mmol/L (8-16); ASPARTATE AMINOTRANSFERASE 16 U/L (15-37); BILIRUBIN,TOTAL 0.4 mg/dL (0.1-1.0); CALCIUM, TOTAL 8.7 mg/dL (8.8-10.5); CARBON DIOXIDE 28 mmol/L (22-29); CHLORIDE 106 mmol/L (98-107); CREATININE 0.56 mg/dL (0.60-1.30); GLOMERULAR FILTR. RATE CALC > 60 mL/min (>60); GLUCOSE,RANDOM 86 mg/dL (70-110); POTASSIUM 4.1 mmol/L (3.5-5.1); SODIUM SERUM 140 mmol/L (136-145); TOTAL PROTEIN, SERUM 7.6 g/dL (6.4-8.2); UREA NITROGEN, BLOOD 10 mg/dL (7-18)
[2021-05-11 08:10] VITALS: BP 134/87
[2021-05-11] MEDS: MULTIVITAMINS WITH MINERALS, THERAPEUTIC TABLET PO SCH (09:10)
[2021-05-11] MEDS: HydrOXYzine HCL 25 MG TABLET PO SCH ×3 (09:10→16:18)
[2021-05-11] MEDS: LORazepam 2 MG TABLET PO PRN (09:10)
[2021-05-11 16:09] VITALS: BP 117/61
[2021-05-11] MEDS: ZOLPIDEM TARTRATE 10 MG TABLET PO PRN (20:04)
[2021-05-11] MEDS: OLANZapine 10 MG TABLET PO SCH (20:04)
[2021-05-12 05:21] VITALS: BP 122/79
[2021-05-12] MEDS: HydrOXYzine HCL 25 MG TABLET PO SCH ×3 (08:29→16:13)
[2021-05-12] MEDS: MULTIVITAMINS WITH MINERALS, THERAPEUTIC TABLET PO SCH (08:29)
[2021-05-12 08:30] VITALS: BP 108/64
[2021-05-12 16:05] VITALS: BP 118/79
[2021-05-12] MEDS: ZOLPIDEM TARTRATE 10 MG TABLET PO PRN (20:26)
[2021-05-12] MEDS: OLANZapine 10 MG TABLET PO SCH (20:26)
[2021-05-13 05:08] VITALS: BP 122/82
[2021-05-13] MEDS: MULTIVITAMINS WITH MINERALS, THERAPEUTIC TABLET PO SCH (08:25)
[2021-05-13] MEDS: HydrOXYzine HCL 25 MG TABLET PO SCH ×3 (08:25→16:27)
[2021-05-13 08:33] VITALS: BP 121/76
[2021-05-13 16:12] VITALS: BP 115/73
[2021-05-13] MEDS: ZOLPIDEM TARTRATE 10 MG TABLET PO PRN (20:57)
[2021-05-13] MEDS: OLANZapine 10 MG TABLET PO SCH (20:57)
[2021-05-14 05:41] VITALS: BP 110/75
[2021-05-14] MEDS: HydrOXYzine HCL 25 MG TABLET PO SCH ×3 (08:18→16:35)
[2021-05-14] MEDS: MULTIVITAMINS WITH MINERALS, THERAPEUTIC TABLET PO SCH (08:18)
[2021-05-14 08:59] VITALS: BP 129/75
[2021-05-14 16:38] VITALS: BP 106/71
[2021-05-14] MEDS: OLANZapine 10 MG TABLET PO SCH (20:01)
[2021-05-14] MEDS: ZOLPIDEM TARTRATE 10 MG TABLET PO PRN (20:06)
[2021-05-15 05:51] VITALS: BP 119/75
[2021-05-15] MEDS: MULTIVITAMINS WITH MINERALS, THERAPEUTIC TABLET PO SCH (08:11)
[2021-05-15] MEDS: HydrOXYzine HCL 25 MG TABLET PO SCH ×3 (08:11→16:29)
[2021-05-15 16:10] VITALS: BP 125/76
[2021-05-15] MEDS: HALOPERIDOL 5 MG TABLET PO PRN (16:29)
[2021-05-15] MEDS: LORazepam 2 MG TABLET PO PRN (16:29)
[2021-05-15] MEDS: ZOLPIDEM TARTRATE 10 MG TABLET PO PRN (20:45)
[2021-05-15] MEDS: OLANZapine 10 MG TABLET PO SCH (20:45)
[2021-05-16 06:20] VITALS: BP 122/74
[2021-05-16] MEDS: MULTIVITAMINS WITH MINERALS, THERAPEUTIC TABLET PO SCH (08:29)
[2021-05-16] MEDS: LORazepam 2 MG TABLET PO PRN (08:29)
[2021-05-16] MEDS: HALOPERIDOL 5 MG TABLET PO PRN (08:29)
[2021-05-16] MEDS: HydrOXYzine HCL 25 MG TABLET PO SCH ×3 (08:29→16:29)
[2021-05-16 08:57] VITALS: BP 114/69
[2021-05-16 16:33] VITALS: BP 124/76
[2021-05-16] MEDS: OLANZapine 10 MG TABLET PO SCH (20:23)
[2021-05-16] MEDS: ZOLPIDEM TARTRATE 10 MG TABLET PO PRN (20:23)
[2021-05-17 04:43] VITALS: BP 122/72
[2021-05-17 08:14] VITALS: BP 128/75
[2021-05-17] MEDS: HydrOXYzine HCL 25 MG TABLET PO SCH ×3 (08:43→17:04)
[2021-05-17] MEDS: MULTIVITAMINS WITH MINERALS, THERAPEUTIC TABLET PO SCH (08:43)
[2021-05-17 16:09] VITALS: BP 113/75
[2021-05-17] MEDS: ZOLPIDEM TARTRATE 10 MG TABLET PO PRN (20:31)
[2021-05-17] MEDS: OLANZapine 10 MG TABLET PO SCH (20:31)
[2021-05-18 05:45] VITALS: BP 116/67
[2021-05-18] MEDS: LORazepam 2 MG TABLET PO PRN (08:15)
[2021-05-18] MEDS: MULTIVITAMINS WITH MINERALS, THERAPEUTIC TABLET PO SCH (08:44)
[2021-05-18] MEDS: HydrOXYzine HCL 25 MG TABLET PO SCH ×3 (08:44→16:51)
[2021-05-18 15:57] LABS: GLUCOMETER DEV NAME(LOC) POC.BV
[2021-05-18 16:02] VITALS: BP 120/71
[2021-05-18] MEDS: OLANZapine 10 MG TABLET PO SCH (20:18)
[2021-05-18] MEDS: ZOLPIDEM TARTRATE 10 MG TABLET PO PRN (20:18)
[2021-05-19 06:04] VITALS: BP 122/67
[2021-05-19 08:14] VITALS: BP 141/99
[2021-05-19] MEDS: LORazepam 2 MG TABLET PO PRN (08:15)
[2021-05-19] MEDS: MULTIVITAMINS WITH MINERALS, THERAPEUTIC TABLET PO SCH (08:40)
[2021-05-19] MEDS: HydrOXYzine HCL 25 MG TABLET PO SCH ×3 (08:40→17:01)
[2021-05-19 16:14] VITALS: BP 129/79
[2021-05-19] MEDS: OLANZapine 10 MG TABLET PO SCH (20:38)
[2021-05-19] MEDS: ZOLPIDEM TARTRATE 10 MG TABLET PO PRN (20:38)
[2021-05-20 05:54] VITALS: BP 123/81
[2021-05-20] MEDS: MULTIVITAMINS WITH MINERALS, THERAPEUTIC TABLET PO SCH (09:03)
[2021-05-20] MEDS: HydrOXYzine HCL 25 MG TABLET PO SCH ×3 (09:04→16:20)
[2021-05-20 16:03] VITALS: BP 124/79
[2021-05-20] MEDS: OLANZapine 10 MG TABLET PO SCH (20:06)
[2021-05-20] MEDS: ZOLPIDEM TARTRATE 10 MG TABLET PO PRN (20:06)
[2021-05-21 05:30] VITALS: BP 125/86
[2021-05-21 06:35] VITALS: BP 128/82
[2021-05-21] MEDS: MULTIVITAMINS WITH MINERALS, THERAPEUTIC TABLET PO SCH (08:34)
[2021-05-21] MEDS: HydrOXYzine HCL 25 MG TABLET PO SCH ×3 (08:34→16:32)
[2021-05-21 08:50] VITALS: BP 128/77
[2021-05-21] MEDS ORDERED: COVID-19 VACCINE,AD26(JANSSEN)(J&J)/PF 0.5 ML VIAL IM. ONE (09:04)
[2021-05-21 16:33] VITALS: BP 132/84
[2021-05-21 16:34] VITALS: BP 132/84
[2021-05-21] MEDS: ZOLPIDEM TARTRATE 10 MG TABLET PO PRN (20:39)
[2021-05-21] MEDS: OLANZapine 10 MG TABLET PO SCH (20:39)
[2021-05-22 04:53] VITALS: BP 145/91
[2021-05-22 08:30] VITALS: BP 102/72
[2021-05-22] MEDS: HydrOXYzine HCL 25 MG TABLET PO SCH ×3 (08:31→16:31)
[2021-05-22] MEDS: MULTIVITAMINS WITH MINERALS, THERAPEUTIC TABLET PO SCH (08:31)
[2021-05-22 17:10] VITALS: BP 116/77
[2021-05-22] MEDS: OLANZapine 10 MG TABLET PO SCH (21:10)
[2021-05-23 04:26] VITALS: BP 118/76
[2021-05-23] MEDS: LORazepam 2 MG TABLET PO PRN (08:10)
[2021-05-23] MEDS: HydrOXYzine HCL 25 MG TABLET PO SCH ×3 (08:39→16:45)
[2021-05-23] MEDS: MULTIVITAMINS WITH MINERALS, THERAPEUTIC TABLET PO SCH (08:39)
[2021-05-23 09:45] VITALS: BP 103/70
[2021-05-23 16:56] VITALS: BP 104/64
[2021-05-23] MEDS: OLANZapine 10 MG TABLET PO SCH (20:21)
[2021-05-24 06:23] VITALS: BP 112/74
[2021-05-24] MEDS: HydrOXYzine HCL 25 MG TABLET PO SCH ×3 (08:17→16:50)
[2021-05-24] MEDS: MULTIVITAMINS WITH MINERALS, THERAPEUTIC TABLET PO SCH (08:17)
[2021-05-24 17:39] VITALS: BP 119/69
[2021-05-24] MEDS: ZOLPIDEM TARTRATE 10 MG TABLET PO PRN (20:33)
[2021-05-24] MEDS: OLANZapine 10 MG TABLET PO SCH (20:33)
[2021-05-25 06:24] VITALS: BP 108/71
[2021-05-25] MEDS: MULTIVITAMINS WITH MINERALS, THERAPEUTIC TABLET PO SCH (09:15)
[2021-05-25] MEDS: HydrOXYzine HCL 25 MG TABLET PO SCH ×3 (09:15→16:46)
[2021-05-25 16:09] VITALS: BP 146/89
[2021-05-25] MEDS: OLANZapine 10 MG TABLET PO SCH (20:22)
[2021-05-25] MEDS: ZOLPIDEM TARTRATE 10 MG TABLET PO PRN (20:22)
[2021-05-26] MEDS: HydrOXYzine HCL 25 MG TABLET PO SCH ×3 (08:34→16:36)
[2021-05-26] MEDS: MULTIVITAMINS WITH MINERALS, THERAPEUTIC TABLET PO SCH (08:34)
[2021-05-26 16:08] VITALS: BP 124/79
[2021-05-26] MEDS: OLANZapine 10 MG TABLET PO SCH (20:34)
[2021-05-26] MEDS: ZOLPIDEM TARTRATE 10 MG TABLET PO PRN (20:34)
[2021-05-27 08:26] VITALS: BP 124/81
[2021-05-27] MEDS: HydrOXYzine HCL 25 MG TABLET PO SCH ×3 (09:02→16:53)
[2021-05-27] MEDS: MULTIVITAMINS WITH MINERALS, THERAPEUTIC TABLET PO SCH (09:02)
[2021-05-27 16:38] VITALS: BP 107/76
[2021-05-27] MEDS: ZOLPIDEM TARTRATE 10 MG TABLET PO PRN (20:25)
[2021-05-27] MEDS: OLANZapine 10 MG TABLET PO SCH (20:25)
[2021-05-28 05:38] VITALS: BP 118/79
[2021-05-28] MEDS: HydrOXYzine HCL 25 MG TABLET PO SCH ×3 (09:16→16:26)
[2021-05-28] MEDS: MULTIVITAMINS WITH MINERALS, THERAPEUTIC TABLET PO SCH (09:16)
[2021-05-28 16:04] VITALS: BP 112/75
[2021-05-28] MEDS: HALOPERIDOL 5 MG TABLET PO PRN (16:27)
[2021-05-28] MEDS: OLANZapine 10 MG TABLET PO SCH (20:30)
[2021-05-29] MEDS: MULTIVITAMINS WITH MINERALS, THERAPEUTIC TABLET PO SCH (08:33)
[2021-05-29] MEDS: LORazepam 2 MG TABLET PO PRN (08:33)
[2021-05-29] MEDS: HydrOXYzine HCL 25 MG TABLET PO SCH ×3 (08:33→16:31)
[2021-05-29 09:58] VITALS: BP 126/76
[2021-05-29 16:09] VITALS: BP 123/81
[2021-05-29] MEDS: ZOLPIDEM TARTRATE 10 MG TABLET PO PRN (20:19)
[2021-05-29] MEDS: OLANZapine 10 MG TABLET PO SCH (20:19)
[2021-05-30] MEDS: MULTIVITAMINS WITH MINERALS, THERAPEUTIC TABLET PO SCH (08:45)
[2021-05-30] MEDS: HydrOXYzine HCL 25 MG TABLET PO SCH ×3 (08:45→16:47)
[2021-05-30 16:13] VITALS: BP 128/78
[2021-05-30] MEDS: OLANZapine 10 MG TABLET PO SCH (20:15)
[2021-05-30] MEDS: ZOLPIDEM TARTRATE 10 MG TABLET PO PRN (20:15)
[2021-05-31 01:12] VITALS: BP 128/78
[2021-05-31] MEDS: HydrOXYzine HCL 25 MG TABLET PO SCH ×3 (08:30→16:18)
[2021-05-31] MEDS: MULTIVITAMINS WITH MINERALS, THERAPEUTIC TABLET PO SCH (08:30)
[2021-05-31 08:35] VITALS: BP 118/72
[2021-05-31] MEDS: OLANZapine 10 MG TABLET PO SCH (20:38)
[2021-06-01 05:31] VITALS: BP 124/72
[2021-06-01] MEDS: MULTIVITAMINS WITH MINERALS, THERAPEUTIC TABLET PO SCH (08:39)
[2021-06-01] MEDS: HydrOXYzine HCL 25 MG TABLET PO SCH ×3 (08:39→16:09)
[2021-06-01 16:03] VITALS: BP 119/81
[2021-06-01] MEDS: ZOLPIDEM TARTRATE 10 MG TABLET PO PRN (20:32)
[2021-06-01] MEDS: OLANZapine 10 MG TABLET PO SCH (20:32)
[2021-06-02 05:22] VITALS: BP 123/74
[2021-06-02] MEDS: MULTIVITAMINS WITH MINERALS, THERAPEUTIC TABLET PO SCH (08:42)
[2021-06-02] MEDS: HydrOXYzine HCL 25 MG TABLET PO SCH ×3 (08:42→16:37)
[2021-06-02 20:08] VITALS: BP 110/71
[2021-06-02] MEDS: ZOLPIDEM TARTRATE 10 MG TABLET PO PRN (20:53)
[2021-06-02] MEDS: OLANZapine 10 MG TABLET PO SCH (20:53)
[2021-06-03 04:33] VITALS: BP 120/74
[2021-06-03 08:15] VITALS: BP 122/81
[2021-06-03] MEDS: HydrOXYzine HCL 25 MG TABLET PO SCH ×3 (08:25→16:39)
[2021-06-03] MEDS: MULTIVITAMINS WITH MINERALS, THERAPEUTIC TABLET PO SCH (08:25)
[2021-06-03 16:15] VITALS: BP 115/74
[2021-06-03] MEDS: OLANZapine 10 MG TABLET PO SCH (20:42)
[2021-06-03] MEDS: ZOLPIDEM TARTRATE 10 MG TABLET PO PRN (20:42)
[2021-06-04 04:18] VITALS: BP 117/74
[2021-06-04] MEDS: MULTIVITAMINS WITH MINERALS, THERAPEUTIC TABLET PO SCH (08:54)
[2021-06-04] MEDS: HydrOXYzine HCL 25 MG TABLET PO SCH ×3 (08:54→16:41)
[2021-06-04 12:56] VITALS: BP 117/70
[2021-06-04 16:17] VITALS: BP 123/70
[2021-06-04] MEDS: ZOLPIDEM TARTRATE 10 MG TABLET PO PRN (20:47)
[2021-06-04] MEDS: OLANZapine 10 MG TABLET PO SCH (20:47)
[2021-06-05 02:00] VITALS: BP 118/62
[2021-06-05] MEDS: HydrOXYzine HCL 25 MG TABLET PO SCH ×4 (09:20→17:47)
[2021-06-05] MEDS: MULTIVITAMINS WITH MINERALS, THERAPEUTIC TABLET PO SCH (09:26)
[2021-06-05 10:21] VITALS: BP 126/84
[2021-06-05 16:12] VITALS: BP 120/76
[2021-06-05] MEDS: OLANZapine 10 MG TABLET PO SCH (20:33)
[2021-06-06 00:11] VITALS: BP 114/71
[2021-06-06 07:13] LABS: COVID AG,FIA SOURCE NASAL SWAB
[2021-06-06 08:29] VITALS: BP 133/76
[2021-06-06] MEDS: MULTIVITAMINS WITH MINERALS, THERAPEUTIC TABLET PO SCH (08:29)
[2021-06-06] MEDS: HydrOXYzine HCL 25 MG TABLET PO SCH ×3 (08:29→16:50)
[2021-06-06 16:27] VITALS: BP 118/76
[2021-06-06] MEDS: OLANZapine 10 MG TABLET PO SCH (20:31)
[2021-06-07 04:53] VITALS: BP 121/74
[2021-06-07] MEDS: MULTIVITAMINS WITH MINERALS, THERAPEUTIC TABLET PO SCH (08:22)
[2021-06-07] MEDS: HydrOXYzine HCL 25 MG TABLET PO SCH ×3 (08:22→16:13)
[2021-06-07 16:03] VITALS: BP 116/77
[2021-06-07] MEDS: OLANZapine 10 MG TABLET PO SCH (20:11)
[2021-06-07] MEDS: ZOLPIDEM TARTRATE 10 MG TABLET PO PRN (20:12)
[2021-06-08 02:12] VITALS: BP 119/76
[2021-06-08 08:10] VITALS: BP 115/71
[2021-06-08] MEDS: HydrOXYzine HCL 25 MG TABLET PO SCH ×3 (08:21→16:26)
[2021-06-08] MEDS: MULTIVITAMINS WITH MINERALS, THERAPEUTIC TABLET PO SCH (08:21)
[2021-06-08 16:09] VITALS: BP 115/80
[2021-06-08] MEDS: ZOLPIDEM TARTRATE 10 MG TABLET PO PRN (21:05)
[2021-06-08] MEDS: OLANZapine 10 MG TABLET PO SCH (21:05)
[2021-06-09 05:45] VITALS: BP 121/80
[2021-06-09 08:37] VITALS: BP 141/84
[2021-06-09] MEDS: MULTIVITAMINS WITH MINERALS, THERAPEUTIC TABLET PO SCH (08:56)
[2021-06-09] MEDS: HydrOXYzine HCL 25 MG TABLET PO SCH ×3 (08:57→16:53)
[2021-06-09 16:07] VITALS: BP 122/76
[2021-06-09] MEDS: OLANZapine 10 MG TABLET PO SCH (20:42)
[2021-06-09] MEDS: ZOLPIDEM TARTRATE 10 MG TABLET PO PRN (20:42)
[2021-06-10 02:12] VITALS: BP 133/82
[2021-06-10] MEDS: MULTIVITAMINS WITH MINERALS, THERAPEUTIC TABLET PO SCH (08:42)
[2021-06-10] MEDS: HydrOXYzine HCL 25 MG TABLET PO SCH ×3 (08:42→17:02)
[2021-06-10 10:16] VITALS: BP 121/75
[2021-06-10 16:12] VITALS: BP 110/74
[2021-06-10] MEDS: ZOLPIDEM TARTRATE 10 MG TABLET PO PRN (20:36)
[2021-06-10] MEDS: OLANZapine 10 MG TABLET PO SCH (20:36)
[2021-06-11 04:25] VITALS: BP 128/74
[2021-06-11 08:15] VITALS: BP 107/68
[2021-06-11] MEDS: HydrOXYzine HCL 25 MG TABLET PO SCH ×3 (09:14→17:05)
[2021-06-11] MEDS: MULTIVITAMINS WITH MINERALS, THERAPEUTIC TABLET PO SCH (09:14)
[2021-06-11 16:06] VITALS: BP 125/77
[2021-06-11] MEDS: OLANZapine 10 MG TABLET PO SCH (20:17)
[2021-06-12 05:52] VITALS: BP 120/72
[2021-06-12 08:23] VITALS: BP 137/89
[2021-06-12] MEDS: MULTIVITAMINS WITH MINERALS, THERAPEUTIC TABLET PO SCH (08:37)
[2021-06-12] MEDS: HydrOXYzine HCL 25 MG TABLET PO SCH ×3 (08:37→16:47)
[2021-06-12 16:03] VITALS: BP 131/84
[2021-06-12] MEDS: OLANZapine 10 MG TABLET PO SCH (20:31)
[2021-06-12] MEDS: ZOLPIDEM TARTRATE 10 MG TABLET PO PRN (20:32)
[2021-06-13 07:18] VITALS: BP 128/79
[2021-06-13] MEDS: HydrOXYzine HCL 25 MG TABLET PO SCH ×3 (08:36→17:23)
[2021-06-13] MEDS: MULTIVITAMINS WITH MINERALS, THERAPEUTIC TABLET PO SCH (08:36)
[2021-06-13 16:04] VITALS: BP 132/82
[2021-06-13] MEDS: ZOLPIDEM TARTRATE 10 MG TABLET PO PRN (20:23)
[2021-06-13] MEDS: OLANZapine 10 MG TABLET PO SCH (20:23)
[2021-06-14 00:30] VITALS: BP 126/80
[2021-06-14] MEDS: MULTIVITAMINS WITH MINERALS, THERAPEUTIC TABLET PO SCH (09:02)
[2021-06-14] MEDS: HydrOXYzine HCL 25 MG TABLET PO SCH ×3 (09:02→16:57)
[2021-06-14] MEDS: ZOLPIDEM TARTRATE 10 MG TABLET PO PRN (20:15)
[2021-06-14] MEDS: OLANZapine 10 MG TABLET PO SCH (20:15)
[2021-06-15 05:18] VITALS: BP 128/80
[2021-06-15] MEDS: MULTIVITAMINS WITH MINERALS, THERAPEUTIC TABLET PO SCH (08:21)
[2021-06-15] MEDS: HydrOXYzine HCL 25 MG TABLET PO SCH ×3 (08:21→16:46)
[2021-06-15] MEDS: OLANZapine 10 MG TABLET PO SCH (20:03)
[2021-06-15] MEDS: ZOLPIDEM TARTRATE 10 MG TABLET PO PRN (20:03)
[2021-06-16 05:40] VITALS: BP 118/77
[2021-06-16] MEDS: MULTIVITAMINS WITH MINERALS, THERAPEUTIC TABLET PO SCH (08:24)
[2021-06-16] MEDS: HydrOXYzine HCL 25 MG TABLET PO SCH ×3 (08:24→16:30)
[2021-06-16 09:15] VITALS: BP 107/71
[2021-06-16 16:16] VITALS: BP 113/79
[2021-06-16] MEDS: ZOLPIDEM TARTRATE 10 MG TABLET PO PRN (20:19)
[2021-06-16] MEDS: OLANZapine 10 MG TABLET PO SCH (20:19)
[2021-06-17 06:58] VITALS: BP 114/72
[2021-06-17] MEDS: HydrOXYzine HCL 25 MG TABLET PO SCH ×3 (08:40→16:57)
[2021-06-17] MEDS: MULTIVITAMINS WITH MINERALS, THERAPEUTIC TABLET PO SCH (08:40)
[2021-06-17 16:07] VITALS: BP 106/66
[2021-06-17] MEDS: OLANZapine 10 MG TABLET PO SCH (20:17)
[2021-06-17] MEDS: ZOLPIDEM TARTRATE 10 MG TABLET PO PRN (20:17)
[2021-06-18 04:27] VITALS: BP 112/68
[2021-06-18] MEDS: HydrOXYzine HCL 25 MG TABLET PO SCH ×3 (08:27→17:24)
[2021-06-18] MEDS: MULTIVITAMINS WITH MINERALS, THERAPEUTIC TABLET PO SCH (08:27)
[2021-06-18 16:09] VITALS: BP 110/68
[2021-06-18] MEDS: OLANZapine 10 MG TABLET PO SCH (20:28)
[2021-06-19 08:23] VITALS: BP_SYST 109; BP_SYST 113; BP_DIAS 66; BP_DIAS 70
[2021-06-19] MEDS: MULTIVITAMINS WITH MINERALS, THERAPEUTIC TABLET PO SCH (08:28)
[2021-06-19] MEDS: HydrOXYzine HCL 25 MG TABLET PO SCH ×3 (08:28→17:00)
[2021-06-19] MEDS: LORazepam 2 MG TABLET PO PRN (11:38)
[2021-06-19] MEDS: HALOPERIDOL 5 MG TABLET PO PRN (11:38)
[2021-06-19] MEDS: OLANZapine 10 MG TABLET PO SCH (21:00)
[2021-06-20 01:01] VITALS: BP 108/61
[2021-06-20] MEDS: HydrOXYzine HCL 25 MG TABLET PO SCH ×3 (09:09→16:18)
[2021-06-20] MEDS: MULTIVITAMINS WITH MINERALS, THERAPEUTIC TABLET PO SCH (09:10)
[2021-06-20 17:17] VITALS: BP 114/70
[2021-06-20] MEDS: OLANZapine 10 MG TABLET PO SCH (20:26)
[2021-06-21 05:30] VITALS: BP 116/70
[2021-06-21] MEDS: MULTIVITAMINS WITH MINERALS, THERAPEUTIC TABLET PO SCH (08:40)
[2021-06-21] MEDS: HydrOXYzine HCL 25 MG TABLET PO SCH ×3 (08:40→16:48)
[2021-06-21 16:11] VITALS: BP 132/76
[2021-06-21] MEDS: OLANZapine 10 MG TABLET PO SCH (20:57)
[2021-06-21] MEDS: ZOLPIDEM TARTRATE 10 MG TABLET PO PRN (20:57)
[2021-06-22 05:40] VITALS: BP 135/72
[2021-06-22 08:33] VITALS: BP 115/74
[2021-06-22] MEDS: MULTIVITAMINS WITH MINERALS, THERAPEUTIC TABLET PO SCH (08:47)
[2021-06-22] MEDS: HydrOXYzine HCL 25 MG TABLET PO SCH ×3 (08:47→17:26)
[2021-06-22 16:17] VITALS: BP 120/71
[2021-06-22] MEDS: OLANZapine 10 MG TABLET PO SCH (20:13)
[2021-06-23] MEDS: MULTIVITAMINS WITH MINERALS, THERAPEUTIC TABLET PO SCH (08:07)
[2021-06-23] MEDS: HydrOXYzine HCL 25 MG TABLET PO SCH ×3 (08:07→16:09)
[2021-06-23 08:15] VITALS: BP 117/70
[2021-06-23 13:07] LABS: GLUCOMETER DEV NAME(LOC) POC.BV
[2021-06-23] MEDS: OLANZapine 10 MG TABLET PO SCH (20:02)
[2021-06-23] MEDS: ZOLPIDEM TARTRATE 10 MG TABLET PO PRN (20:08)
[2021-06-24 05:51] VITALS: BP 122/78
[2021-06-24] MEDS: MULTIVITAMINS WITH MINERALS, THERAPEUTIC TABLET PO SCH (08:32)
[2021-06-24] MEDS: HydrOXYzine HCL 25 MG TABLET PO SCH ×3 (08:32→16:06)
[2021-06-24] MEDS: OLANZapine 10 MG TABLET PO SCH (21:24)
[2021-06-25 05:32] VITALS: BP 122/76
[2021-06-25] MEDS: HydrOXYzine HCL 25 MG TABLET PO SCH ×3 (08:35→16:17)
[2021-06-25] MEDS: MULTIVITAMINS WITH MINERALS, THERAPEUTIC TABLET PO SCH (08:35)
[2021-06-25] MEDS: OLANZapine 10 MG TABLET PO SCH (20:05)
[2021-06-25] MEDS: ZOLPIDEM TARTRATE 10 MG TABLET PO PRN (20:11)
[2021-06-26] MEDS: MULTIVITAMINS WITH MINERALS, THERAPEUTIC TABLET PO SCH (08:22)
[2021-06-26] MEDS: HydrOXYzine HCL 25 MG TABLET PO SCH ×3 (08:22→16:13)
[2021-06-26 16:07] VITALS: BP 115/69
[2021-06-26] MEDS: OLANZapine 10 MG TABLET PO SCH (20:11)
[2021-06-26] MEDS: ZOLPIDEM TARTRATE 10 MG TABLET PO PRN (20:12)
[2021-06-27 06:11] VITALS: BP 141/87
[2021-06-27] MEDS: HydrOXYzine HCL 25 MG TABLET PO SCH ×3 (08:23→16:28)
[2021-06-27] MEDS: MULTIVITAMINS WITH MINERALS, THERAPEUTIC TABLET PO SCH (08:23)
[2021-06-27 08:48] VITALS: BP 108/70
[2021-06-27 16:07] VITALS: BP 131/71
[2021-06-27] MEDS: OLANZapine 10 MG TABLET PO SCH (20:08)
[2021-06-28 02:39] VITALS: BP 67/17
[2021-06-28 08:19] VITALS: BP 106/68
[2021-06-28] MEDS: HydrOXYzine HCL 25 MG TABLET PO SCH ×3 (08:39→16:49)
[2021-06-28] MEDS: MULTIVITAMINS WITH MINERALS, THERAPEUTIC TABLET PO SCH (08:39)
[2021-06-28] MEDS: ZOLPIDEM TARTRATE 10 MG TABLET PO PRN (20:43)
[2021-06-28] MEDS: OLANZapine 10 MG TABLET PO SCH (20:43)
[2021-06-29] MEDS: HydrOXYzine HCL 25 MG TABLET PO SCH ×3 (08:04→16:07)
[2021-06-29] MEDS: MULTIVITAMINS WITH MINERALS, THERAPEUTIC TABLET PO SCH (08:05)
[2021-06-29 08:15] VITALS: BP 110/70
[2021-06-29 16:03] VITALS: BP 145/82
[2021-06-29] MEDS: OLANZapine 10 MG TABLET PO SCH (20:44)
[2021-06-30 05:56] VITALS: BP 128/72
[2021-06-30 08:13] VITALS: BP 109/74
[2021-06-30] MEDS: MULTIVITAMINS WITH MINERALS, THERAPEUTIC TABLET PO SCH (08:37)
[2021-06-30] MEDS: HydrOXYzine HCL 25 MG TABLET PO SCH ×3 (08:37→16:31)
[2021-06-30] MEDS: OLANZapine 10 MG TABLET PO SCH (20:22)
[2021-07-01 05:49] VITALS: BP 120/84
[2021-07-01 08:43] VITALS: BP 118/69
[2021-07-01] MEDS: MULTIVITAMINS WITH MINERALS, THERAPEUTIC TABLET PO SCH (08:47)
[2021-07-01] MEDS: HydrOXYzine HCL 25 MG TABLET PO SCH ×3 (08:47→16:35)
[2021-07-01 16:06] VITALS: BP 115/71
[2021-07-01] MEDS: OLANZapine 10 MG TABLET PO SCH (20:22)
[2021-07-02 01:38] VITALS: BP 122/84
[2021-07-02] MEDS: HydrOXYzine HCL 25 MG TABLET PO SCH ×3 (08:44→16:05)
[2021-07-02] MEDS: MULTIVITAMINS WITH MINERALS, THERAPEUTIC TABLET PO SCH (08:45)
[2021-07-02] MEDS: OLANZapine 10 MG TABLET PO SCH (20:16)
[2021-07-03] MEDS: HydrOXYzine HCL 25 MG TABLET PO SCH ×3 (08:13→16:02)
[2021-07-03] MEDS: MULTIVITAMINS WITH MINERALS, THERAPEUTIC TABLET PO SCH (08:14)
[2021-07-03 09:52] VITALS: BP 100/69
[2021-07-03 16:33] VITALS: BP 121/81
[2021-07-03] MEDS: OLANZapine 10 MG TABLET PO SCH (20:07)
[2021-07-04 04:52] VITALS: BP 118/78
[2021-07-04] MEDS: MULTIVITAMINS WITH MINERALS, THERAPEUTIC TABLET PO SCH (09:31)
[2021-07-04] MEDS: HydrOXYzine HCL 25 MG TABLET PO SCH ×3 (09:31→16:36)
[2021-07-04 16:20] VITALS: BP 120/79
[2021-07-04] MEDS: HALOPERIDOL 5 MG TABLET PO PRN (16:36)
[2021-07-04] MEDS: OLANZapine 10 MG TABLET PO SCH (20:17)
[2021-07-05 04:27] VITALS: BP 125/82
[2021-07-05 08:02] VITALS: BP 120/78
[2021-07-05] MEDS: HydrOXYzine HCL 25 MG TABLET PO SCH ×3 (08:04→16:32)
[2021-07-05] MEDS: MULTIVITAMINS WITH MINERALS, THERAPEUTIC TABLET PO SCH (08:04)
[2021-07-05 16:06] VITALS: BP 118/76
[2021-07-05] MEDS: OLANZapine 10 MG TABLET PO SCH (20:16)
[2021-07-06] MEDS: HydrOXYzine HCL 25 MG TABLET PO SCH ×3 (08:29→16:27)
[2021-07-06] MEDS: MULTIVITAMINS WITH MINERALS, THERAPEUTIC TABLET PO SCH (08:29)
[2021-07-06 16:03] VITALS: BP 110/65
[2021-07-06] MEDS: OLANZapine 10 MG TABLET PO SCH (20:32)
[2021-07-07 05:30] VITALS: BP 109/61
[2021-07-07] MEDS: HydrOXYzine HCL 25 MG TABLET PO SCH ×3 (09:30→16:03)
[2021-07-07] MEDS: MULTIVITAMINS WITH MINERALS, THERAPEUTIC TABLET PO SCH (09:30)
[2021-07-07 16:07] VITALS: BP 121/74
[2021-07-07] MEDS: OLANZapine 10 MG TABLET PO SCH (20:16)
[2021-07-08 04:59] VITALS: BP 118/74
[2021-07-08 08:35] VITALS: BP 107/62
[2021-07-08] MEDS: MULTIVITAMINS WITH MINERALS, THERAPEUTIC TABLET PO SCH (08:57)
[2021-07-08] MEDS: HydrOXYzine HCL 25 MG TABLET PO SCH ×3 (08:58→16:54)
[2021-07-08] MEDS: OLANZapine 10 MG TABLET PO SCH (21:53)
[2021-07-09 05:23] VITALS: BP 109/65
[2021-07-09] MEDS: MULTIVITAMINS WITH MINERALS, THERAPEUTIC TABLET PO SCH (09:39)
[2021-07-09] MEDS: HydrOXYzine HCL 25 MG TABLET PO SCH ×3 (09:40→16:43)
[2021-07-09] MEDS: OLANZapine 10 MG TABLET PO SCH (20:28)
[2021-07-09] MEDS: ZOLPIDEM TARTRATE 10 MG TABLET PO PRN (20:50)
[2021-07-10] MEDS: HydrOXYzine HCL 25 MG TABLET PO SCH ×3 (08:25→16:06)
[2021-07-10] MEDS: MULTIVITAMINS WITH MINERALS, THERAPEUTIC TABLET PO SCH (08:25)
[2021-07-10] MEDS: LORazepam 2 MG TABLET PO PRN (15:18)
[2021-07-10] MEDS: HALOPERIDOL 5 MG TABLET PO PRN (15:19)
[2021-07-10 16:15] VITALS: BP 112/72
[2021-07-10] MEDS: OLANZapine 10 MG TABLET PO SCH (20:59)
[2021-07-11] MEDS: MULTIVITAMINS WITH MINERALS, THERAPEUTIC TABLET PO SCH (09:28)
[2021-07-11] MEDS: HydrOXYzine HCL 25 MG TABLET PO SCH ×3 (09:28→16:21)
[2021-07-11] MEDS: OLANZapine 10 MG TABLET PO SCH (20:38)
[2021-07-12 06:45] VITALS: BP 110/72
[2021-07-12 09:58] VITALS: BP 107/70
[2021-07-12] MEDS: HydrOXYzine HCL 25 MG TABLET PO SCH ×3 (10:03→17:15)
[2021-07-12] MEDS: MULTIVITAMINS WITH MINERALS, THERAPEUTIC TABLET PO SCH (10:03)
[2021-07-12 16:14] VITALS: BP 115/75
[2021-07-12] MEDS: OLANZapine 10 MG TABLET PO SCH (21:01)
[2021-07-13 05:44] VITALS: BP 118/76
[2021-07-13] MEDS: LORazepam 2 MG TABLET PO PRN ×2 (08:08→17:08)
[2021-07-13] MEDS: HydrOXYzine HCL 25 MG TABLET PO SCH ×3 (08:08→17:08)
[2021-07-13] MEDS: MULTIVITAMINS WITH MINERALS, THERAPEUTIC TABLET PO SCH (08:08)
[2021-07-13 08:34] VITALS: BP 137/64
[2021-07-13] MEDS: ZOLPIDEM TARTRATE 10 MG TABLET PO PRN (21:47)
[2021-07-13] MEDS: OLANZapine 10 MG TABLET PO SCH (21:48)
[2021-07-14 06:10] VITALS: BP 124/74
[2021-07-14] MEDS: MULTIVITAMINS WITH MINERALS, THERAPEUTIC TABLET PO SCH (09:57)
[2021-07-14] MEDS: HydrOXYzine HCL 25 MG TABLET PO SCH ×3 (09:57→16:25)
[2021-07-14] MEDS: OLANZapine 10 MG TABLET PO SCH (20:50)
[2021-07-15] MEDS: HydrOXYzine HCL 25 MG TABLET PO SCH ×3 (08:21→16:48)
[2021-07-15] MEDS: MULTIVITAMINS WITH MINERALS, THERAPEUTIC TABLET PO SCH (08:22)
[2021-07-15] MEDS: OLANZapine 10 MG TABLET PO SCH (20:51)
[2021-07-16 04:51] VITALS: BP 128/72
[2021-07-16] MEDS: HydrOXYzine HCL 25 MG TABLET PO SCH ×3 (08:26→15:55)
[2021-07-16] MEDS: MULTIVITAMINS WITH MINERALS, THERAPEUTIC TABLET PO SCH (08:26)
[2021-07-16] MEDS: OLANZapine 10 MG TABLET PO SCH (20:31)
[2021-07-17 05:22] VITALS: BP 122/78
[2021-07-17 08:04] VITALS: BP 111/72
[2021-07-17] MEDS: HydrOXYzine HCL 25 MG TABLET PO SCH ×3 (09:57→15:58)
[2021-07-17] MEDS: MULTIVITAMINS WITH MINERALS, THERAPEUTIC TABLET PO SCH (09:57)
[2021-07-17] MEDS: HALOPERIDOL 5 MG TABLET PO PRN (15:59)
[2021-07-17] MEDS: OLANZapine 10 MG TABLET PO SCH (20:45)
[2021-07-18 05:16] VITALS: BP 132/80
[2021-07-18 08:16] VITALS: BP 129/79
[2021-07-18] MEDS: MULTIVITAMINS WITH MINERALS, THERAPEUTIC TABLET PO SCH (08:21)
[2021-07-18] MEDS: HydrOXYzine HCL 25 MG TABLET PO SCH ×3 (08:21→16:35)
[2021-07-18] MEDS: OLANZapine 10 MG TABLET PO SCH (20:16)
[2021-07-19 04:53] VITALS: BP 126/76
[2021-07-19 08:22] VITALS: BP 124/70
[2021-07-19] MEDS: HydrOXYzine HCL 25 MG TABLET PO SCH ×3 (08:23→16:41)
[2021-07-19] MEDS: MULTIVITAMINS WITH MINERALS, THERAPEUTIC TABLET PO SCH (08:23)
[2021-07-19 16:06] VITALS: BP 130/72
[2021-07-19] MEDS: OLANZapine 10 MG TABLET PO SCH (20:55)
[2021-07-20 04:30] VITALS: BP 111/66
[2021-07-20] MEDS: HydrOXYzine HCL 25 MG TABLET PO SCH ×3 (08:07→16:08)
[2021-07-20] MEDS: MULTIVITAMINS WITH MINERALS, THERAPEUTIC TABLET PO SCH (08:07)
[2021-07-20 16:04] VITALS: BP 109/78
[2021-07-20] MEDS: OLANZapine 10 MG TABLET PO SCH (20:32)
[2021-07-21 01:51] VITALS: BP 121/70
[2021-07-21 08:25] VITALS: BP 117/69
[2021-07-21] MEDS: MULTIVITAMINS WITH MINERALS, THERAPEUTIC TABLET PO SCH (08:57)
[2021-07-21] MEDS: HydrOXYzine HCL 25 MG TABLET PO SCH ×3 (09:00→17:14)
[2021-07-21] MEDS: OLANZapine 10 MG TABLET PO SCH (20:47)
[2021-07-22 05:21] VITALS: BP 119/70
[2021-07-22] MEDS: HydrOXYzine HCL 25 MG TABLET PO SCH ×3 (08:21→17:03)
[2021-07-22] MEDS: MULTIVITAMINS WITH MINERALS, THERAPEUTIC TABLET PO SCH (08:21)
[2021-07-22] MEDS: ZOLPIDEM TARTRATE 10 MG TABLET PO PRN (20:48)
[2021-07-22] MEDS: OLANZapine 10 MG TABLET PO SCH (20:48)
[2021-07-23] MEDS: MULTIVITAMINS WITH MINERALS, THERAPEUTIC TABLET PO SCH (09:08)
[2021-07-23] MEDS: HydrOXYzine HCL 25 MG TABLET PO SCH ×3 (10:19→16:03)
[2021-07-23] MEDS: HALOPERIDOL 5 MG TABLET PO PRN (16:04)
[2021-07-23] MEDS: OLANZapine 10 MG TABLET PO SCH (20:35)
[2021-07-23] MEDS: ZOLPIDEM TARTRATE 10 MG TABLET PO PRN (20:35)
[2021-07-24 08:36] VITALS: BP 115/71
[2021-07-24] MEDS: HydrOXYzine HCL 25 MG TABLET PO SCH ×3 (08:38→17:24)
[2021-07-24] MEDS: MULTIVITAMINS WITH MINERALS, THERAPEUTIC TABLET PO SCH (08:38)
[2021-07-24] MEDS: OLANZapine 10 MG TABLET PO SCH (20:52)
[2021-07-24] MEDS: ZOLPIDEM TARTRATE 10 MG TABLET PO PRN (20:52)
[2021-07-25 05:51] VITALS: BP 121/74
[2021-07-25] MEDS: HydrOXYzine HCL 25 MG TABLET PO SCH ×3 (08:17→16:54)
[2021-07-25] MEDS: MULTIVITAMINS WITH MINERALS, THERAPEUTIC TABLET PO SCH (08:17)
[2021-07-25] MEDS: OLANZapine 10 MG TABLET PO SCH (20:33)
[2021-07-25] MEDS: ZOLPIDEM TARTRATE 10 MG TABLET PO PRN (20:33)
[2021-07-26 07:38] LABS: COVID AG,FIA SOURCE NASOPHARYNGEAL
[2021-07-26] MEDS: MULTIVITAMINS WITH MINERALS, THERAPEUTIC TABLET PO SCH (08:48)
[2021-07-26] MEDS: HydrOXYzine HCL 25 MG TABLET PO SCH ×3 (08:48→16:54)
[2021-07-26 10:58] VITALS: BP 114/72
[2021-07-26] MEDS: OLANZapine 10 MG TABLET PO SCH (20:47)
[2021-07-26] MEDS: ZOLPIDEM TARTRATE 10 MG TABLET PO PRN (20:47)
[2021-07-27] MEDS: MULTIVITAMINS WITH MINERALS, THERAPEUTIC TABLET PO SCH (09:15)
[2021-07-27] MEDS: HydrOXYzine HCL 25 MG TABLET PO SCH ×3 (09:15→16:08)
[2021-07-27] MEDS: OLANZapine 10 MG TABLET PO SCH (21:09)
[2021-07-28] MEDS: HydrOXYzine HCL 25 MG TABLET PO SCH ×3 (09:42→16:49)
[2021-07-28] MEDS: MULTIVITAMINS WITH MINERALS, THERAPEUTIC TABLET PO SCH (09:42)
[2021-07-28] MEDS: OLANZapine 10 MG TABLET PO SCH (20:30)
[2021-07-28] MEDS: ZOLPIDEM TARTRATE 10 MG TABLET PO PRN (20:30)
[2021-07-29 05:32] VITALS: BP 118/76
[2021-07-29] MEDS: MULTIVITAMINS WITH MINERALS, THERAPEUTIC TABLET PO SCH (08:08)
[2021-07-29] MEDS: HydrOXYzine HCL 25 MG TABLET PO SCH ×3 (08:08→16:38)
[2021-07-29 16:17] VITALS: BP 109/69
[2021-07-29] MEDS: ZOLPIDEM TARTRATE 10 MG TABLET PO PRN (20:48)
[2021-07-29] MEDS: OLANZapine 10 MG TABLET PO SCH (20:48)
[2021-07-30 08:03] VITALS: BP 114/72
[2021-07-30] MEDS: HydrOXYzine HCL 25 MG TABLET PO SCH ×3 (08:14→16:56)
[2021-07-30] MEDS: MULTIVITAMINS WITH MINERALS, THERAPEUTIC TABLET PO SCH (08:14)
[2021-07-30] MEDS: ZOLPIDEM TARTRATE 10 MG TABLET PO PRN (20:57)
[2021-07-30] MEDS: OLANZapine 10 MG TABLET PO SCH (20:57)
[2021-07-31] MEDS: HydrOXYzine HCL 25 MG TABLET PO SCH ×3 (09:07→16:51)
[2021-07-31] MEDS: MULTIVITAMINS WITH MINERALS, THERAPEUTIC TABLET PO SCH (09:07)
[2021-07-31] MEDS: OLANZapine 10 MG TABLET PO SCH (20:38)
[2021-08-01 08:02] VITALS: BP 102/68
[2021-08-01] MEDS: HydrOXYzine HCL 25 MG TABLET PO SCH ×3 (08:27→16:47)
[2021-08-01] MEDS: MULTIVITAMINS WITH MINERALS, THERAPEUTIC TABLET PO SCH (08:27)
[2021-08-01] MEDS: OLANZapine 10 MG TABLET PO SCH (20:29)
[2021-08-02 05:47] VITALS: BP 92/58
[2021-08-02 08:19] LABS: COVID AG,FIA SOURCE NASAL SWAB
[2021-08-02] MEDS: HydrOXYzine HCL 25 MG TABLET PO SCH ×3 (08:30→17:06)
[2021-08-02] MEDS: MULTIVITAMINS WITH MINERALS, THERAPEUTIC TABLET PO SCH (08:30)
[2021-08-02 16:05] VITALS: BP 117/80
[2021-08-02] MEDS: OLANZapine 10 MG TABLET PO SCH (20:47)
[2021-08-03 00:46] VITALS: BP 108/69
[2021-08-03] MEDS: MULTIVITAMINS WITH MINERALS, THERAPEUTIC TABLET PO SCH (08:29)
[2021-08-03] MEDS: HydrOXYzine HCL 25 MG TABLET PO SCH ×3 (08:29→17:03)
[2021-08-03 16:35] VITALS: BP 120/68
[2021-08-03] MEDS: OLANZapine 10 MG TABLET PO SCH (20:22)
[2021-08-04 05:30] VITALS: BP 106/64
[2021-08-04] MEDS: MULTIVITAMINS WITH MINERALS, THERAPEUTIC TABLET PO SCH (09:02)
[2021-08-04] MEDS: HydrOXYzine HCL 25 MG TABLET PO SCH ×3 (09:02→17:06)
[2021-08-04] MEDS: OLANZapine 10 MG TABLET PO SCH (20:24)
[2021-08-05 03:09] VITALS: BP 118/66
[2021-08-05] MEDS: MULTIVITAMINS WITH MINERALS, THERAPEUTIC TABLET PO SCH (08:26)
[2021-08-05] MEDS: HydrOXYzine HCL 25 MG TABLET PO SCH ×3 (08:26→16:44)
[2021-08-05] MEDS: OLANZapine 10 MG TABLET PO SCH (20:44)
[2021-08-06] MEDS: MULTIVITAMINS WITH MINERALS, THERAPEUTIC TABLET PO SCH (08:07)
[2021-08-06] MEDS: HydrOXYzine HCL 25 MG TABLET PO SCH ×3 (08:07→16:12)
[2021-08-06] MEDS: HALOPERIDOL 5 MG TABLET PO PRN (16:12)
[2021-08-06] MEDS: OLANZapine 10 MG TABLET PO SCH (20:51)
[2021-08-06] MEDS: ZOLPIDEM TARTRATE 10 MG TABLET PO PRN (20:53)
[2021-08-07] MEDS: HydrOXYzine HCL 25 MG TABLET PO SCH ×3 (08:28→16:55)
[2021-08-07] MEDS: MULTIVITAMINS WITH MINERALS, THERAPEUTIC TABLET PO SCH (08:28)
[2021-08-07 16:09] VITALS: BP 117/68
[2021-08-07] MEDS: OLANZapine 10 MG TABLET PO SCH (20:02)
[2021-08-08 06:10] VITALS: BP 119/74
[2021-08-08] MEDS: MULTIVITAMINS WITH MINERALS, THERAPEUTIC TABLET PO SCH (08:19)
[2021-08-08] MEDS: HydrOXYzine HCL 25 MG TABLET PO SCH ×3 (08:19→17:05)
[2021-08-08] MEDS: OLANZapine 10 MG TABLET PO SCH (20:41)
[2021-08-09 04:37] VITALS: BP 114/72
[2021-08-09] MEDS: HydrOXYzine HCL 25 MG TABLET PO SCH ×3 (08:16→17:04)
[2021-08-09] MEDS: MULTIVITAMINS WITH MINERALS, THERAPEUTIC TABLET PO SCH (08:16)
[2021-08-09 08:27] VITALS: BP 113/70
[2021-08-09] MEDS: OLANZapine 10 MG TABLET PO SCH (20:36)
[2021-08-10] MEDS: HydrOXYzine HCL 25 MG TABLET PO SCH ×3 (08:15→16:25)
[2021-08-10] MEDS: MULTIVITAMINS WITH MINERALS, THERAPEUTIC TABLET PO SCH (08:15)
[2021-08-10] MEDS: OLANZapine 10 MG TABLET PO SCH (20:22)
[2021-08-11 05:37] VITALS: BP 116/75
[2021-08-11] MEDS: HydrOXYzine HCL 25 MG TABLET PO SCH ×3 (08:28→17:07)
[2021-08-11] MEDS: MULTIVITAMINS WITH MINERALS, THERAPEUTIC TABLET PO SCH (08:28)
[2021-08-11 08:33] VITALS: BP 109/82
[2021-08-11] MEDS ORDERED: LORazepam 2 MG/ML VIAL ONE (12:14)
[2021-08-11] MEDS ORDERED: HALOPERIDOL LACTATE 5 MG/ML VIAL ONE (12:14)
[2021-08-11] MEDS ORDERED: DiphenhydrAMINE HCL 50 MG/ML VIAL ONE (12:14)
[2021-08-11] MEDS ORDERED: HALOPERIDOL LACTATE 5 MG/ML VIAL IM ONE (12:15)
[2021-08-11] MEDS ORDERED: DiphenhydrAMINE HCL 50 MG/ML VIAL IM ONE (12:15)
[2021-08-11] MEDS ORDERED: LORazepam 2 MG/ML VIAL IM ONE (12:15)
[2021-08-11] MEDS: OLANZapine 10 MG TABLET PO SCH (20:51)
[2021-08-12 06:01] VITALS: BP 114/70
[2021-08-12] MEDS: HydrOXYzine HCL 25 MG TABLET PO SCH ×3 (08:16→16:57)
[2021-08-12] MEDS: MULTIVITAMINS WITH MINERALS, THERAPEUTIC TABLET PO SCH (08:17)
[2021-08-12 16:04] VITALS: BP 110/66
[2021-08-12] MEDS: LORazepam 2 MG TABLET PO PRN (16:59)
[2021-08-12] MEDS: HALOPERIDOL 5 MG TABLET PO PRN (16:59)
[2021-08-12] MEDS: OLANZapine 10 MG TABLET PO SCH (20:53)
[2021-08-13] MEDS: HydrOXYzine HCL 25 MG TABLET PO SCH ×3 (08:20→17:00)
[2021-08-13] MEDS: MULTIVITAMINS WITH MINERALS, THERAPEUTIC TABLET PO SCH (08:20)
[2021-08-13] MEDS: LORazepam 2 MG TABLET PO PRN (17:00)
[2021-08-13] MEDS: HALOPERIDOL 5 MG TABLET PO PRN (17:00)
[2021-08-13] MEDS: OLANZapine 10 MG TABLET PO SCH (20:36)
[2021-08-14 07:41] LABS: GLUCOMETER DEV NAME(LOC) POC.BV
[2021-08-14] MEDS: HydrOXYzine HCL 25 MG TABLET PO SCH ×3 (08:31→15:59)
[2021-08-14] MEDS: MULTIVITAMINS WITH MINERALS, THERAPEUTIC TABLET PO SCH (08:31)
[2021-08-14] MEDS: OLANZapine 10 MG TABLET PO SCH (20:10)
[2021-08-15 05:39] VITALS: BP 110/68
[2021-08-15 08:03] VITALS: BP 113/70
[2021-08-15] MEDS: MULTIVITAMINS WITH MINERALS, THERAPEUTIC TABLET PO SCH (08:19)
[2021-08-15] MEDS: HydrOXYzine HCL 25 MG TABLET PO SCH ×3 (08:19→16:00)
[2021-08-15 09:40] VITALS: BP 141/83
[2021-08-15] MEDS: OLANZapine 10 MG TABLET PO SCH (20:09)
[2021-08-16] MEDS: MULTIVITAMINS WITH MINERALS, THERAPEUTIC TABLET PO SCH (08:21)
[2021-08-16] MEDS: HydrOXYzine HCL 25 MG TABLET PO SCH ×3 (08:21→16:55)
[2021-08-16] MEDS: OLANZapine 10 MG TABLET PO SCH (20:33)
[2021-08-17] MEDS: HydrOXYzine HCL 25 MG TABLET PO SCH ×3 (08:13→16:56)
[2021-08-17] MEDS: MULTIVITAMINS WITH MINERALS, THERAPEUTIC TABLET PO SCH (08:14)
[2021-08-17] MEDS: OLANZapine 10 MG TABLET PO SCH (20:39)
[2021-08-18 08:11] VITALS: BP 116/70
[2021-08-18] MEDS: HydrOXYzine HCL 25 MG TABLET PO SCH ×3 (08:44→16:56)
[2021-08-18] MEDS: MULTIVITAMINS WITH MINERALS, THERAPEUTIC TABLET PO SCH (08:44)
[2021-08-18] MEDS: OLANZapine 10 MG TABLET PO SCH (20:50)
[2021-08-19] MEDS: MULTIVITAMINS WITH MINERALS, THERAPEUTIC TABLET PO SCH (08:19)
[2021-08-19] MEDS: HydrOXYzine HCL 25 MG TABLET PO SCH ×3 (08:19→17:01)
[2021-08-19] MEDS: OLANZapine 10 MG TABLET PO SCH (20:43)
[2021-08-20 08:08] VITALS: BP 124/71
[2021-08-20] MEDS: MULTIVITAMINS WITH MINERALS, THERAPEUTIC TABLET PO SCH (09:10)
[2021-08-20] MEDS: HydrOXYzine HCL 25 MG TABLET PO SCH ×3 (09:10→16:04)
[2021-08-20] MEDS: OLANZapine 10 MG TABLET PO SCH (20:53)
[2021-08-21] MEDS: HydrOXYzine HCL 25 MG TABLET PO SCH ×3 (08:11→16:47)
[2021-08-21] MEDS: MULTIVITAMINS WITH MINERALS, THERAPEUTIC TABLET PO SCH (08:11)
[2021-08-21 09:51] LABS: GLUCOMETER DEV NAME(LOC) POC.BV
[2021-08-21] MEDS: OLANZapine 10 MG TABLET PO SCH (20:35)
[2021-08-22 06:28] VITALS: BP 121/68
[2021-08-22] MEDS: MULTIVITAMINS WITH MINERALS, THERAPEUTIC TABLET PO SCH (08:41)
[2021-08-22] MEDS: HydrOXYzine HCL 25 MG TABLET PO SCH ×3 (08:41→17:08)
[2021-08-22] MEDS: HALOPERIDOL 5 MG TABLET PO PRN (17:08)
[2021-08-22] MEDS: LORazepam 2 MG TABLET PO PRN (17:08)
[2021-08-22] MEDS: OLANZapine 10 MG TABLET PO SCH (20:43)
[2021-08-23 07:06] VITALS: BP 128/72
[2021-08-23] MEDS: HydrOXYzine HCL 25 MG TABLET PO SCH ×3 (08:19→17:00)
[2021-08-23] MEDS: MULTIVITAMINS WITH MINERALS, THERAPEUTIC TABLET PO SCH (08:19)
[2021-08-23 16:07] VITALS: BP 120/73
[2021-08-23] MEDS: OLANZapine 10 MG TABLET PO SCH (21:01)
[2021-08-24 00:50] VITALS: BP 124/70
[2021-08-24] MEDS: MULTIVITAMINS WITH MINERALS, THERAPEUTIC TABLET PO SCH (08:29)
[2021-08-24] MEDS: HydrOXYzine HCL 25 MG TABLET PO SCH ×3 (08:29→16:46)
[2021-08-24] MEDS: LORazepam 2 MG TABLET PO PRN (16:46)
[2021-08-24] MEDS: ZOLPIDEM TARTRATE 10 MG TABLET PO PRN (20:27)
[2021-08-24] MEDS: OLANZapine 10 MG TABLET PO SCH (20:27)
[2021-08-25 05:50] VITALS: BP 128/72
[2021-08-25] MEDS: HydrOXYzine HCL 25 MG TABLET PO SCH ×3 (08:33→16:50)
[2021-08-25] MEDS: MULTIVITAMINS WITH MINERALS, THERAPEUTIC TABLET PO SCH (08:33)
[2021-08-25] MEDS: OLANZapine 10 MG TABLET PO SCH (20:40)
[2021-08-26 05:21] VITALS: BP 120/72
[2021-08-26] MEDS: HydrOXYzine HCL 25 MG TABLET PO SCH ×3 (08:15→16:11)
[2021-08-26] MEDS: MULTIVITAMINS WITH MINERALS, THERAPEUTIC TABLET PO SCH (08:15)
[2021-08-26 16:03] VITALS: BP 106/64
[2021-08-26] MEDS: OLANZapine 10 MG TABLET PO SCH (20:08)
[2021-08-26] MEDS: ZOLPIDEM TARTRATE 10 MG TABLET PO PRN (20:08)
[2021-08-27 05:22] VITALS: BP 112/78
[2021-08-27] MEDS: HydrOXYzine HCL 25 MG TABLET PO SCH ×3 (09:19→16:46)
[2021-08-27] MEDS: MULTIVITAMINS WITH MINERALS, THERAPEUTIC TABLET PO SCH (09:19)
[2021-08-27] MEDS: OLANZapine 10 MG TABLET PO SCH (20:26)
[2021-08-28 06:07] VITALS: BP 110/72
[2021-08-28 08:07] VITALS: BP 108/67
[2021-08-28] MEDS: MULTIVITAMINS WITH MINERALS, THERAPEUTIC TABLET PO SCH (08:24)
[2021-08-28] MEDS: HydrOXYzine HCL 25 MG TABLET PO SCH ×3 (08:24→16:39)
[2021-08-28 16:14] VITALS: BP 129/77
[2021-08-28] MEDS: OLANZapine 10 MG TABLET PO SCH (21:01)
[2021-08-29] MEDS: HydrOXYzine HCL 25 MG TABLET PO SCH ×3 (08:35→16:47)
[2021-08-29] MEDS: MULTIVITAMINS WITH MINERALS, THERAPEUTIC TABLET PO SCH (08:35)
[2021-08-29 17:05] VITALS: BP 107/68
[2021-08-29] MEDS: OLANZapine 10 MG TABLET PO SCH (20:35)
[2021-08-30 04:21] LABS: GLUCOMETER DEV NAME(LOC) POC.BV
[2021-08-30 06:01] VITALS: BP 107/66
[2021-08-30] MEDS: MULTIVITAMINS WITH MINERALS, THERAPEUTIC TABLET PO SCH (08:49)
[2021-08-30] MEDS: HydrOXYzine HCL 25 MG TABLET PO SCH ×3 (08:49→17:07)
[2021-08-30] MEDS: OLANZapine 10 MG TABLET PO SCH (20:42)
[2021-08-31] MEDS: HydrOXYzine HCL 25 MG TABLET PO SCH ×3 (08:33→16:23)
[2021-08-31] MEDS: MULTIVITAMINS WITH MINERALS, THERAPEUTIC TABLET PO SCH (08:34)
[2021-08-31 16:04] VITALS: BP 114/70
[2021-08-31] MEDS: OLANZapine 10 MG TABLET PO SCH (20:27)
[2021-09-01 00:26] VITALS: BP 116/72
[2021-09-01 09:02] VITALS: BP 121/76
[2021-09-01] MEDS: HydrOXYzine HCL 25 MG TABLET PO SCH ×3 (09:03→16:49)
[2021-09-01] MEDS: MULTIVITAMINS WITH MINERALS, THERAPEUTIC TABLET PO SCH (09:03)
[2021-09-01 16:25] VITALS: BP 120/72
[2021-09-01] MEDS: OLANZapine 10 MG TABLET PO SCH (21:04)
[2021-09-02 08:06] VITALS: BP 112/64
[2021-09-02] MEDS: HydrOXYzine HCL 25 MG TABLET PO SCH ×3 (08:10→16:57)
[2021-09-02] MEDS: MULTIVITAMINS WITH MINERALS, THERAPEUTIC TABLET PO SCH (08:10)
[2021-09-02] MEDS: OLANZapine 10 MG TABLET PO SCH (20:40)
[2021-09-03] MEDS: MULTIVITAMINS WITH MINERALS, THERAPEUTIC TABLET PO SCH (08:50)
[2021-09-03] MEDS: HydrOXYzine HCL 25 MG TABLET PO SCH ×3 (08:50→16:30)
[2021-09-03] MEDS: OLANZapine 10 MG TABLET PO SCH (20:21)
[2021-09-04 06:24] VITALS: BP 116/78
[2021-09-04] MEDS: MULTIVITAMINS WITH MINERALS, THERAPEUTIC TABLET PO SCH (09:08)
[2021-09-04] MEDS: HydrOXYzine HCL 25 MG TABLET PO SCH ×3 (09:08→16:54)
[2021-09-04 16:03] VITALS: BP 122/77
[2021-09-04] MEDS: OLANZapine 10 MG TABLET PO SCH (20:43)
[2021-09-05] MEDS: HydrOXYzine HCL 25 MG TABLET PO SCH ×3 (08:27→17:01)
[2021-09-05] MEDS: MULTIVITAMINS WITH MINERALS, THERAPEUTIC TABLET PO SCH (08:28)
[2021-09-05] MEDS: OLANZapine 10 MG TABLET PO SCH (20:50)
[2021-09-06 08:38] VITALS: BP 139/82
[2021-09-06] MEDS: MULTIVITAMINS WITH MINERALS, THERAPEUTIC TABLET PO SCH (09:29)
[2021-09-06] MEDS: HydrOXYzine HCL 25 MG TABLET PO SCH ×3 (09:29→16:59)
[2021-09-06] MEDS: OLANZapine 10 MG TABLET PO SCH (20:30)
[2021-09-07] MEDS: HydrOXYzine HCL 25 MG TABLET PO SCH ×3 (08:12→16:32)
[2021-09-07] MEDS: MULTIVITAMINS WITH MINERALS, THERAPEUTIC TABLET PO SCH (08:12)
[2021-09-07] MEDS: OLANZapine 10 MG TABLET PO SCH (20:23)
[2021-09-08] MEDS: MULTIVITAMINS WITH MINERALS, THERAPEUTIC TABLET PO SCH (08:25)
[2021-09-08] MEDS: HydrOXYzine HCL 25 MG TABLET PO SCH ×3 (08:25→16:10)
[2021-09-08] MEDS: OLANZapine 10 MG TABLET PO SCH (20:15)
[2021-09-09] MEDS: HydrOXYzine HCL 25 MG TABLET PO SCH ×3 (08:25→16:53)
[2021-09-09] MEDS: MULTIVITAMINS WITH MINERALS, THERAPEUTIC TABLET PO SCH (08:25)
[2021-09-09 16:05] VITALS: BP 107/60
[2021-09-09] MEDS: OLANZapine 10 MG TABLET PO SCH (20:02)
[2021-09-09] MEDS: ZOLPIDEM TARTRATE 10 MG TABLET PO PRN (20:02)
[2021-09-10] MEDS: HydrOXYzine HCL 25 MG TABLET PO SCH ×3 (07:59→16:05)
[2021-09-10] MEDS: MULTIVITAMINS WITH MINERALS, THERAPEUTIC TABLET PO SCH (07:59)
[2021-09-10 08:08] VITALS: BP 121/69
[2021-09-10] MEDS: OLANZapine 10 MG TABLET PO SCH (21:04)
[2021-09-11] MEDS: MULTIVITAMINS WITH MINERALS, THERAPEUTIC TABLET PO SCH (08:18)
[2021-09-11] MEDS: HydrOXYzine HCL 25 MG TABLET PO SCH ×3 (08:18→16:09)
[2021-09-11 16:03] VITALS: BP 132/75
[2021-09-11] MEDS: OLANZapine 10 MG TABLET PO SCH (20:18)
[2021-09-12 08:06] VITALS: BP 121/65
[2021-09-12] MEDS: MULTIVITAMINS WITH MINERALS, THERAPEUTIC TABLET PO SCH (08:24)
[2021-09-12] MEDS: HydrOXYzine HCL 25 MG TABLET PO SCH ×3 (08:24→16:44)
[2021-09-12 11:20] LABS: GLUCOMETER DEV NAME(LOC) POC.BV
[2021-09-12] MEDS: OLANZapine 10 MG TABLET PO SCH (20:49)
[2021-09-13] MEDS: MULTIVITAMINS WITH MINERALS, THERAPEUTIC TABLET PO SCH (08:07)
[2021-09-13] MEDS: HydrOXYzine HCL 25 MG TABLET PO SCH ×3 (08:07→17:22)
[2021-09-13 08:53] VITALS: BP 123/64
[2021-09-13] MEDS: OLANZapine 10 MG TABLET PO SCH (20:36)
[2021-09-14 01:22] VITALS: BP 115/68
[2021-09-14] MEDS: MULTIVITAMINS WITH MINERALS, THERAPEUTIC TABLET PO SCH (08:42)
[2021-09-14] MEDS: HydrOXYzine HCL 25 MG TABLET PO SCH ×3 (08:42→16:24)
[2021-09-14 14:40] VITALS: BP 99/62
[2021-09-14 16:23] VITALS: BP 109/68
[2021-09-14] MEDS: ZOLPIDEM TARTRATE 10 MG TABLET PO PRN (20:06)
[2021-09-14] MEDS: OLANZapine 10 MG TABLET PO SCH (20:06)
[2021-09-15 00:59] VITALS: BP 112/61
[2021-09-15 08:10] VITALS: BP 109/72
[2021-09-15] MEDS: MULTIVITAMINS WITH MINERALS, THERAPEUTIC TABLET PO SCH (08:30)
[2021-09-15] MEDS: HydrOXYzine HCL 25 MG TABLET PO SCH ×3 (08:30→17:00)
[2021-09-15 16:05] VITALS: BP 108/71
[2021-09-15] MEDS: OLANZapine 10 MG TABLET PO SCH (22:13)
[2021-09-16] MEDS: MULTIVITAMINS WITH MINERALS, THERAPEUTIC TABLET PO SCH (08:04)
[2021-09-16] MEDS: HydrOXYzine HCL 25 MG TABLET PO SCH ×3 (08:04→16:05)
[2021-09-16] MEDS: OLANZapine 10 MG TABLET PO SCH (20:02)
[2021-09-16] MEDS: ZOLPIDEM TARTRATE 10 MG TABLET PO PRN (20:02)
[2021-09-17] MEDS: HydrOXYzine HCL 25 MG TABLET PO SCH ×3 (08:26→16:21)
[2021-09-17] MEDS: MULTIVITAMINS WITH MINERALS, THERAPEUTIC TABLET PO SCH (08:26)
[2021-09-17 16:06] VITALS: BP 107/67
[2021-09-17] MEDS: OLANZapine 10 MG TABLET PO SCH (20:47)
[2021-09-18] MEDS: MULTIVITAMINS WITH MINERALS, THERAPEUTIC TABLET PO SCH (08:29)
[2021-09-18] MEDS: HydrOXYzine HCL 25 MG TABLET PO SCH ×3 (08:29→17:06)
[2021-09-18 16:10] VITALS: BP 104/68
[2021-09-18] MEDS: OLANZapine 10 MG TABLET PO SCH (20:50)
[2021-09-19 00:23] VITALS: BP 140/86
[2021-09-19] MEDS: MULTIVITAMINS WITH MINERALS, THERAPEUTIC TABLET PO SCH (08:04)
[2021-09-19] MEDS: HydrOXYzine HCL 25 MG TABLET PO SCH ×3 (08:04→16:33)
[2021-09-19 08:54] VITALS: BP 129/76
[2021-09-19 16:15] VITALS: BP 121/80
[2021-09-19] MEDS: OLANZapine 10 MG TABLET PO SCH (20:17)
[2021-09-20] MEDS: HydrOXYzine HCL 25 MG TABLET PO SCH ×3 (08:09→17:07)
[2021-09-20] MEDS: MULTIVITAMINS WITH MINERALS, THERAPEUTIC TABLET PO SCH (08:09)
[2021-09-20 08:59] VITALS: BP 119/76
[2021-09-20] MEDS: OLANZapine 10 MG TABLET PO SCH (21:13)
[2021-09-20 22:46] LABS: GLUCOMETER DEV NAME(LOC) POC.BV
[2021-09-21] MEDS: HydrOXYzine HCL 25 MG TABLET PO SCH ×3 (08:06→16:06)
[2021-09-21] MEDS: MULTIVITAMINS WITH MINERALS, THERAPEUTIC TABLET PO SCH (08:06)
[2021-09-21] MEDS: OLANZapine 10 MG TABLET PO SCH (20:31)
[2021-09-21] MEDS: ZOLPIDEM TARTRATE 10 MG TABLET PO PRN (20:32)
[2021-09-22 00:57] VITALS: BP 116/70
[2021-09-22] MEDS: MULTIVITAMINS WITH MINERALS, THERAPEUTIC TABLET PO SCH (08:33)
[2021-09-22] MEDS: HydrOXYzine HCL 25 MG TABLET PO SCH ×3 (08:33→16:59)
[2021-09-22] MEDS: OLANZapine 10 MG TABLET PO SCH (20:32)
[2021-09-23] MEDS: HydrOXYzine HCL 25 MG TABLET PO SCH ×3 (08:15→17:01)
[2021-09-23] MEDS: MULTIVITAMINS WITH MINERALS, THERAPEUTIC TABLET PO SCH (08:15)
[2021-09-23] MEDS: OLANZapine 10 MG TABLET PO SCH (20:54)
[2021-09-24] MEDS: HydrOXYzine HCL 25 MG TABLET PO SCH ×3 (08:09→17:02)
[2021-09-24] MEDS: MULTIVITAMINS WITH MINERALS, THERAPEUTIC TABLET PO SCH (09:10)
[2021-09-24] MEDS: OLANZapine 10 MG TABLET PO SCH (20:51)
[2021-09-25 08:34] VITALS: BP 124/64
[2021-09-25] MEDS: MULTIVITAMINS WITH MINERALS, THERAPEUTIC TABLET PO SCH (08:36)
[2021-09-25] MEDS: HydrOXYzine HCL 25 MG TABLET PO SCH ×3 (08:36→16:48)
[2021-09-25] MEDS: OLANZapine 10 MG TABLET PO SCH (20:15)
[2021-09-26] MEDS: HydrOXYzine HCL 25 MG TABLET PO SCH ×3 (08:28→16:24)
[2021-09-26] MEDS: MULTIVITAMINS WITH MINERALS, THERAPEUTIC TABLET PO SCH (08:28)
[2021-09-26 09:08] VITALS: BP 121/69
[2021-09-26] MEDS: OLANZapine 10 MG TABLET PO SCH (20:14)
[2021-09-27] MEDS: MULTIVITAMINS WITH MINERALS, THERAPEUTIC TABLET PO SCH (09:03)
[2021-09-27] MEDS: HydrOXYzine HCL 25 MG TABLET PO SCH ×3 (09:03→17:06)
[2021-09-27] MEDS ORDERED: HALOPERIDOL LACTATE 5 MG/ML VIAL ONE (11:15)
[2021-09-27] MEDS ORDERED: LORazepam 2 MG/ML VIAL ONE (11:15)
[2021-09-27] MEDS ORDERED: DiphenhydrAMINE HCL 50 MG/ML VIAL ONE (11:15)
[2021-09-27] MEDS ORDERED: DiphenhydrAMINE HCL 50 MG/ML VIAL IM ONE (11:45)
[2021-09-27] MEDS ORDERED: HALOPERIDOL LACTATE 5 MG/ML VIAL IM ONE (11:45)
[2021-09-27] MEDS ORDERED: LORazepam 2 MG/ML VIAL IM ONE (11:45)
[2021-09-27 12:41] LABS: GLUCOMETER DEV NAME(LOC) POC.BV
[2021-09-27] MEDS: LORazepam 2 MG TABLET PO PRN (17:06)
[2021-09-27] MEDS: HALOPERIDOL 5 MG TABLET PO PRN (17:06)
[2021-09-27] MEDS: OLANZapine 10 MG TABLET PO SCH (20:19)
[2021-09-28] MEDS: MULTIVITAMINS WITH MINERALS, THERAPEUTIC TABLET PO SCH (08:47)
[2021-09-28] MEDS: HydrOXYzine HCL 25 MG TABLET PO SCH ×3 (08:47→17:23)
[2021-09-28 16:05] VITALS: BP 111/62
[2021-09-28] MEDS: LORazepam 2 MG TABLET PO PRN (17:23)
[2021-09-28] MEDS: HALOPERIDOL 5 MG TABLET PO PRN (17:23)
[2021-09-28] MEDS: OLANZapine 10 MG TABLET PO SCH (20:41)
[2021-09-29 01:30] VITALS: BP 118/77
[2021-09-29] MEDS: MULTIVITAMINS WITH MINERALS, THERAPEUTIC TABLET PO SCH (09:41)
[2021-09-29] MEDS: HydrOXYzine HCL 25 MG TABLET PO SCH ×3 (09:41→17:10)
[2021-09-29] MEDS: HALOPERIDOL 5 MG TABLET PO PRN (17:10)
[2021-09-29] MEDS: LORazepam 2 MG TABLET PO PRN (17:10)
[2021-09-29] MEDS: OLANZapine 10 MG TABLET PO SCH (20:27)
[2021-09-30 00:57] VITALS: BP 124/69
[2021-09-30] MEDS: HydrOXYzine HCL 25 MG TABLET PO SCH ×3 (08:11→16:59)
[2021-09-30] MEDS: MULTIVITAMINS WITH MINERALS, THERAPEUTIC TABLET PO SCH (08:11)
[2021-09-30] MEDS: LORazepam 2 MG TABLET PO PRN (08:11)
[2021-09-30] MEDS: HALOPERIDOL 5 MG TABLET PO PRN (08:11)
[2021-09-30 08:52] VITALS: BP 118/70
[2021-09-30 16:02] VITALS: BP 100/61
[2021-09-30] MEDS: OLANZapine 10 MG TABLET PO SCH (20:10)
[2021-10-01 00:28] VITALS: BP 108/67
[2021-10-01] MEDS: HydrOXYzine HCL 25 MG TABLET PO SCH ×3 (08:57→16:25)
[2021-10-01] MEDS: MULTIVITAMINS WITH MINERALS, THERAPEUTIC TABLET PO SCH (08:57)
[2021-10-01 10:54] VITALS: BP 116/75
[2021-10-01 16:24] VITALS: BP 111/70
[2021-10-01] MEDS: OLANZapine 10 MG TABLET PO SCH (20:22)
[2021-10-02 00:14] VITALS: BP 114/65
[2021-10-02] MEDS: HydrOXYzine HCL 25 MG TABLET PO SCH ×3 (08:40→16:32)
[2021-10-02] MEDS: MULTIVITAMINS WITH MINERALS, THERAPEUTIC TABLET PO SCH (08:41)
[2021-10-02] MEDS: OLANZapine 10 MG TABLET PO SCH (20:03)
[2021-10-02] MEDS: ZOLPIDEM TARTRATE 10 MG TABLET PO PRN (20:11)
[2021-10-03] MEDS: HydrOXYzine HCL 25 MG TABLET PO SCH ×3 (08:24→16:48)
[2021-10-03] MEDS: MULTIVITAMINS WITH MINERALS, THERAPEUTIC TABLET PO SCH (08:24)
[2021-10-03] MEDS: HALOPERIDOL 5 MG TABLET PO PRN (16:48)
[2021-10-03] MEDS: LORazepam 2 MG TABLET PO PRN (16:48)
[2021-10-03] MEDS: OLANZapine 10 MG TABLET PO SCH (20:30)
[2021-10-04] MEDS: MULTIVITAMINS WITH MINERALS, THERAPEUTIC TABLET PO SCH (08:40)
[2021-10-04] MEDS: MEGESTROL ACETATE 400 MG/10 ML SUSPENSION UDCUP PO SCH (08:40)
[2021-10-04] MEDS: HydrOXYzine HCL 25 MG TABLET PO SCH ×3 (08:40→16:53)
[2021-10-04 16:05] VITALS: BP 107/66
[2021-10-04] MEDS: LORazepam 2 MG TABLET PO PRN (16:53)
[2021-10-04] MEDS: OLANZapine 10 MG TABLET PO SCH (20:45)
[2021-10-05] MEDS: MULTIVITAMINS WITH MINERALS, THERAPEUTIC TABLET PO SCH (08:26)
[2021-10-05] MEDS: MEGESTROL ACETATE 400 MG/10 ML SUSPENSION UDCUP PO SCH (08:26)
[2021-10-05] MEDS: HydrOXYzine HCL 25 MG TABLET PO SCH ×3 (08:26→16:17)
[2021-10-05 08:27] VITALS: BP 106/60
[2021-10-05] MEDS: OLANZapine 10 MG TABLET PO SCH (21:03)
[2021-10-06] MEDS: MEGESTROL ACETATE 400 MG/10 ML SUSPENSION UDCUP PO SCH (08:15)
[2021-10-06] MEDS: HydrOXYzine HCL 25 MG TABLET PO SCH ×3 (08:15→16:55)
[2021-10-06] MEDS: MULTIVITAMINS WITH MINERALS, THERAPEUTIC TABLET PO SCH (08:15)
[2021-10-06] MEDS: LORazepam 2 MG TABLET PO PRN (16:56)
[2021-10-06] MEDS: HALOPERIDOL 5 MG TABLET PO PRN (16:56)
[2021-10-06] MEDS: ZOLPIDEM TARTRATE 10 MG TABLET PO PRN (20:19)
[2021-10-06] MEDS: OLANZapine 10 MG TABLET PO SCH (20:19)
[2021-10-07 06:21] VITALS: BP 110/62
[2021-10-07] MEDS: MEGESTROL ACETATE 400 MG/10 ML SUSPENSION UDCUP PO SCH (08:12)
[2021-10-07] MEDS: HydrOXYzine HCL 25 MG TABLET PO SCH ×3 (08:13→16:13)
[2021-10-07] MEDS: MULTIVITAMINS WITH MINERALS, THERAPEUTIC TABLET PO SCH (08:13)
[2021-10-07] MEDS: LORazepam 2 MG TABLET PO PRN (08:24)
[2021-10-07] MEDS: OLANZapine 10 MG TABLET PO SCH (20:28)
[2021-10-08] MEDS: MEGESTROL ACETATE 400 MG/10 ML SUSPENSION UDCUP PO SCH (08:52)
[2021-10-08] MEDS: HydrOXYzine HCL 25 MG TABLET PO SCH ×3 (08:52→17:05)
[2021-10-08] MEDS: MULTIVITAMINS WITH MINERALS, THERAPEUTIC TABLET PO SCH (08:52)
[2021-10-08] MEDS: HALOPERIDOL 5 MG TABLET PO PRN (17:05)
[2021-10-08] MEDS: LORazepam 2 MG TABLET PO PRN (17:05)
[2021-10-08] MEDS: OLANZapine 10 MG TABLET PO SCH (20:42)
[2021-10-09] MEDS: MEGESTROL ACETATE 400 MG/10 ML SUSPENSION UDCUP PO SCH (08:24)
[2021-10-09] MEDS: HydrOXYzine HCL 25 MG TABLET PO SCH ×3 (08:24→16:25)
[2021-10-09] MEDS: MULTIVITAMINS WITH MINERALS, THERAPEUTIC TABLET PO SCH (08:24)
[2021-10-09] MEDS: OLANZapine 10 MG TABLET PO SCH (20:36)
[2021-10-10 08:09] VITALS: BP 120/68
[2021-10-10] MEDS: MEGESTROL ACETATE 400 MG/10 ML SUSPENSION UDCUP PO SCH (08:13)
[2021-10-10] MEDS: HydrOXYzine HCL 25 MG TABLET PO SCH ×3 (08:13→16:30)
[2021-10-10] MEDS: MULTIVITAMINS WITH MINERALS, THERAPEUTIC TABLET PO SCH (08:14)
[2021-10-10] MEDS: HALOPERIDOL 5 MG TABLET PO PRN (16:50)
[2021-10-10] MEDS: LORazepam 2 MG TABLET PO PRN (16:50)
[2021-10-10] MEDS: OLANZapine 10 MG TABLET PO SCH (20:55)
[2021-10-11 07:56] LABS: COVID AG,FIA SOURCE NASAL SWAB
[2021-10-11] MEDS: MEGESTROL ACETATE 400 MG/10 ML SUSPENSION UDCUP PO SCH (08:39)
[2021-10-11] MEDS: HydrOXYzine HCL 25 MG TABLET PO SCH ×3 (08:39→16:14)
[2021-10-11] MEDS: MULTIVITAMINS WITH MINERALS, THERAPEUTIC TABLET PO SCH (08:40)
[2021-10-11 16:11] VITALS: BP 115/74
[2021-10-11] MEDS: LORazepam 2 MG TABLET PO PRN (16:15)
[2021-10-11] MEDS: OLANZapine 10 MG TABLET PO SCH (20:05)
[2021-10-12] MEDS: MEGESTROL ACETATE 400 MG/10 ML SUSPENSION UDCUP PO SCH (08:50)
[2021-10-12] MEDS: MULTIVITAMINS WITH MINERALS, THERAPEUTIC TABLET PO SCH (08:50)
[2021-10-12] MEDS: HydrOXYzine HCL 25 MG TABLET PO SCH ×3 (08:50→16:14)
[2021-10-12] MEDS: LORazepam 2 MG TABLET PO PRN (16:14)
[2021-10-12] MEDS: HALOPERIDOL 5 MG TABLET PO PRN (16:14)
[2021-10-12 16:18] VITALS: BP 112/71
[2021-10-12] MEDS: OLANZapine 10 MG TABLET PO SCH (20:41)
[2021-10-13 07:58] VITALS: BP 122/68
[2021-10-13] MEDS: MULTIVITAMINS WITH MINERALS, THERAPEUTIC TABLET PO SCH (08:33)
[2021-10-13] MEDS: HydrOXYzine HCL 25 MG TABLET PO SCH ×3 (08:37→16:29)
[2021-10-13] MEDS: MEGESTROL ACETATE 400 MG/10 ML SUSPENSION UDCUP PO SCH (08:37)
[2021-10-13] MEDS: LORazepam 2 MG TABLET PO PRN (16:29)
[2021-10-13] MEDS: HALOPERIDOL 5 MG TABLET PO PRN (16:29)
[2021-10-13] MEDS: OLANZapine 10 MG TABLET PO SCH (20:30)
[2021-10-14] MEDS: MEGESTROL ACETATE 400 MG/10 ML SUSPENSION UDCUP PO SCH (08:40)
[2021-10-14] MEDS: MULTIVITAMINS WITH MINERALS, THERAPEUTIC TABLET PO SCH (08:40)
[2021-10-14] MEDS: HydrOXYzine HCL 25 MG TABLET PO SCH ×3 (08:40→16:50)
[2021-10-14] MEDS: HALOPERIDOL 5 MG TABLET PO PRN (16:50)
[2021-10-14] MEDS: OLANZapine 10 MG TABLET PO SCH (20:38)
[2021-10-15 08:11] VITALS: BP 104/60
[2021-10-15] MEDS: HydrOXYzine HCL 25 MG TABLET PO SCH ×3 (08:48→16:19)
[2021-10-15] MEDS: MULTIVITAMINS WITH MINERALS, THERAPEUTIC TABLET PO SCH (08:48)
[2021-10-15] MEDS: LORazepam 2 MG TABLET PO PRN ×2 (08:48→16:19)
[2021-10-15] MEDS: MEGESTROL ACETATE 400 MG/10 ML SUSPENSION UDCUP PO SCH (08:49)
[2021-10-15] MEDS: HALOPERIDOL 5 MG TABLET PO PRN (12:00)
[2021-10-15] MEDS: OLANZapine 10 MG TABLET PO SCH (20:10)
[2021-10-16 00:35] VITALS: BP 110/71
[2021-10-16] MEDS: MEGESTROL ACETATE 400 MG/10 ML SUSPENSION UDCUP PO SCH (08:20)
[2021-10-16] MEDS: MULTIVITAMINS WITH MINERALS, THERAPEUTIC TABLET PO SCH (08:20)
[2021-10-16] MEDS: HydrOXYzine HCL 25 MG TABLET PO SCH ×3 (08:20→17:04)
[2021-10-16 16:23] VITALS: BP 114/72
[2021-10-16] MEDS: HALOPERIDOL 5 MG TABLET PO PRN (17:04)
[2021-10-16] MEDS: OLANZapine 10 MG TABLET PO SCH (20:33)
[2021-10-17] MEDS: MULTIVITAMINS WITH MINERALS, THERAPEUTIC TABLET PO SCH (08:05)
[2021-10-17] MEDS: HydrOXYzine HCL 25 MG TABLET PO SCH ×3 (08:05→17:09)
[2021-10-17] MEDS: MEGESTROL ACETATE 400 MG/10 ML SUSPENSION UDCUP PO SCH (08:06)
[2021-10-17 16:05] VITALS: BP 117/69
[2021-10-17] MEDS: LORazepam 2 MG TABLET PO PRN (17:09)
[2021-10-17] MEDS: HALOPERIDOL 5 MG TABLET PO PRN (17:09)
[2021-10-17] MEDS: OLANZapine 10 MG TABLET PO SCH (20:40)
[2021-10-18] MEDS: HydrOXYzine HCL 25 MG TABLET PO SCH ×3 (08:22→16:52)
[2021-10-18] MEDS: MULTIVITAMINS WITH MINERALS, THERAPEUTIC TABLET PO SCH (08:23)
[2021-10-18] MEDS: MEGESTROL ACETATE 400 MG/10 ML SUSPENSION UDCUP PO SCH (08:24)
[2021-10-18] MEDS: HALOPERIDOL 5 MG TABLET PO PRN (16:52)
[2021-10-18] MEDS: OLANZapine 10 MG TABLET PO SCH (20:39)
[2021-10-19] MEDS: MULTIVITAMINS WITH MINERALS, THERAPEUTIC TABLET PO SCH (08:32)
[2021-10-19] MEDS: HydrOXYzine HCL 25 MG TABLET PO SCH ×3 (08:32→16:08)
[2021-10-19] MEDS: MEGESTROL ACETATE 400 MG/10 ML SUSPENSION UDCUP PO SCH (08:32)
[2021-10-19] MEDS ORDERED: TUBERCULIN, PURIFIED PROTEIN DERIVATIVE 5 TU/0.1 ML SYRINGE ID ONE (10:30)
[2021-10-19 12:01] LABS: GLUCOMETER DEV NAME(LOC) POC.BV
[2021-10-19] MEDS: LORazepam 2 MG TABLET PO PRN (16:08)
[2021-10-19] MEDS: OLANZapine 10 MG TABLET PO SCH (20:21)
[2021-10-20] MEDS: HydrOXYzine HCL 25 MG TABLET PO SCH ×3 (07:55→17:09)
[2021-10-20] MEDS: MULTIVITAMINS WITH MINERALS, THERAPEUTIC TABLET PO SCH (07:56)
[2021-10-20] MEDS: MEGESTROL ACETATE 400 MG/10 ML SUSPENSION UDCUP PO SCH (07:56)
[2021-10-20] MEDS: LORazepam 2 MG TABLET PO PRN (17:09)
[2021-10-20] MEDS: HALOPERIDOL 5 MG TABLET PO PRN (17:09)
[2021-10-20] MEDS: OLANZapine 10 MG TABLET PO SCH (20:50)
[2021-10-21] MEDS: HydrOXYzine HCL 25 MG TABLET PO SCH ×3 (08:07→17:01)
[2021-10-21] MEDS: MEGESTROL ACETATE 400 MG/10 ML SUSPENSION UDCUP PO SCH (08:07)
[2021-10-21] MEDS: MULTIVITAMINS WITH MINERALS, THERAPEUTIC TABLET PO SCH (08:07)
[2021-10-21] MEDS: HALOPERIDOL 5 MG TABLET PO PRN (17:00)
[2021-10-21] MEDS: OLANZapine 10 MG TABLET PO SCH (20:39)
[2021-10-22] MEDS: HydrOXYzine HCL 25 MG TABLET PO SCH ×3 (08:21→17:19)
[2021-10-22] MEDS: MEGESTROL ACETATE 400 MG/10 ML SUSPENSION UDCUP PO SCH (08:22)
[2021-10-22] MEDS: MULTIVITAMINS WITH MINERALS, THERAPEUTIC TABLET PO SCH (08:22)
[2021-10-22] MEDS: HALOPERIDOL 5 MG TABLET PO PRN (17:19)
[2021-10-22] MEDS: OLANZapine 10 MG TABLET PO SCH (20:43)
[2021-10-23 07:04] LABS: COVID AG,FIA SOURCE NASAL SWAB
[2021-10-23] MEDS: MEGESTROL ACETATE 400 MG/10 ML SUSPENSION UDCUP PO SCH (08:51)
[2021-10-23] MEDS: MULTIVITAMINS WITH MINERALS, THERAPEUTIC TABLET PO SCH (08:51)
[2021-10-23] MEDS: HydrOXYzine HCL 25 MG TABLET PO SCH ×3 (08:51→16:26)
[2021-10-23] MEDS: OLANZapine 10 MG TABLET PO SCH (20:19)
[2021-10-24 08:00] VITALS: BP 118/65
[2021-10-24] MEDS: MULTIVITAMINS WITH MINERALS, THERAPEUTIC TABLET PO SCH (09:03)
[2021-10-24] MEDS: HydrOXYzine HCL 25 MG TABLET PO SCH ×3 (09:03→16:17)
[2021-10-24] MEDS: MEGESTROL ACETATE 400 MG/10 ML SUSPENSION UDCUP PO SCH (09:04)
[2021-10-24] MEDS: OLANZapine 10 MG TABLET PO SCH (20:07)
[2021-10-25 00:24] VITALS: BP 110/62
[2021-10-25] MEDS: HydrOXYzine HCL 25 MG TABLET PO SCH ×3 (08:11→16:22)
[2021-10-25] MEDS: MEGESTROL ACETATE 400 MG/10 ML SUSPENSION UDCUP PO SCH (08:11)
[2021-10-25] MEDS: MULTIVITAMINS WITH MINERALS, THERAPEUTIC TABLET PO SCH (08:13)
[2021-10-25 08:25] VITALS: BP 134/77
[2021-10-25] MEDS ORDERED: LORazepam 2 MG/ML VIAL ONE (14:00)
[2021-10-25] MEDS ORDERED: DiphenhydrAMINE HCL 50 MG/ML VIAL ONE (14:01)
[2021-10-25] MEDS ORDERED: HALOPERIDOL LACTATE 5 MG/ML VIAL ONE (14:01)
[2021-10-25] MEDS ORDERED: LORazepam 2 MG/ML VIAL IM ONE (14:05)
[2021-10-25] MEDS ORDERED: DiphenhydrAMINE HCL 50 MG/ML VIAL IM ONE (14:05)
[2021-10-25] MEDS ORDERED: HALOPERIDOL LACTATE 5 MG/ML VIAL IM ONE (14:05)
[2021-10-25] MEDS: OLANZapine 10 MG TABLET PO SCH (20:38)
[2021-10-26 00:16] VITALS: BP 122/71
[2021-10-26] MEDS: MULTIVITAMINS WITH MINERALS, THERAPEUTIC TABLET PO SCH (08:05)
[2021-10-26] MEDS: MEGESTROL ACETATE 400 MG/10 ML SUSPENSION UDCUP PO SCH (08:05)
[2021-10-26] MEDS: HydrOXYzine HCL 25 MG TABLET PO SCH ×3 (08:05→16:19)
[2021-10-26] MEDS: OLANZapine 10 MG TABLET PO SCH (20:07)
[2021-10-27] MEDS: HydrOXYzine HCL 25 MG TABLET PO SCH ×3 (08:16→16:14)
[2021-10-27] MEDS: MULTIVITAMINS WITH MINERALS, THERAPEUTIC TABLET PO SCH (08:16)
[2021-10-27] MEDS: MEGESTROL ACETATE 400 MG/10 ML SUSPENSION UDCUP PO SCH (08:18)
[2021-10-27] MEDS: HALOPERIDOL 5 MG TABLET PO PRN (16:15)
[2021-10-27] MEDS: OLANZapine 10 MG TABLET PO SCH (20:28)
[2021-10-27] MEDS: ZOLPIDEM TARTRATE 10 MG TABLET PO PRN (20:29)
[2021-10-28] MEDS: MULTIVITAMINS WITH MINERALS, THERAPEUTIC TABLET PO SCH (08:27)
[2021-10-28] MEDS: MEGESTROL ACETATE 400 MG/10 ML SUSPENSION UDCUP PO SCH (08:27)
[2021-10-28] MEDS: HydrOXYzine HCL 25 MG TABLET PO SCH ×3 (08:27→16:10)
[2021-10-28] MEDS: OLANZapine 10 MG TABLET PO SCH (20:22)
[2021-10-29] MEDS: HydrOXYzine HCL 25 MG TABLET PO SCH ×3 (08:42→15:50)
[2021-10-29] MEDS: MEGESTROL ACETATE 400 MG/10 ML SUSPENSION UDCUP PO SCH (08:43)
[2021-10-29] MEDS: MULTIVITAMINS WITH MINERALS, THERAPEUTIC TABLET PO SCH (08:43)
[2021-10-29 15:41] LABS: GLUCOMETER DEV NAME(LOC) POC.BV
[2021-10-29] MEDS: HALOPERIDOL 5 MG TABLET PO PRN (15:50)
[2021-10-29] MEDS: OLANZapine 10 MG TABLET PO SCH (20:20)
[2021-10-29] MEDS: ZOLPIDEM TARTRATE 10 MG TABLET PO PRN (20:21)
[2021-10-30 08:02] VITALS: BP 117/72
[2021-10-30] MEDS: MULTIVITAMINS WITH MINERALS, THERAPEUTIC TABLET PO SCH (08:34)
[2021-10-30] MEDS: MEGESTROL ACETATE 400 MG/10 ML SUSPENSION UDCUP PO SCH (08:35)
[2021-10-30] MEDS: HydrOXYzine HCL 25 MG TABLET PO SCH ×3 (08:35→16:08)
[2021-10-30] MEDS: OLANZapine 10 MG TABLET PO SCH (20:10)
[2021-10-31] MEDS: MULTIVITAMINS WITH MINERALS, THERAPEUTIC TABLET PO SCH (08:32)
[2021-10-31] MEDS: HydrOXYzine HCL 25 MG TABLET PO SCH ×3 (08:32→16:09)
[2021-10-31] MEDS: MEGESTROL ACETATE 400 MG/10 ML SUSPENSION UDCUP PO SCH (08:33)
[2021-10-31] MEDS: HALOPERIDOL 5 MG TABLET PO PRN (16:09)
[2021-10-31 16:11] VITALS: BP 137/78
[2021-10-31] MEDS: OLANZapine 10 MG TABLET PO SCH (20:22)
[2021-11-01] MEDS: MEGESTROL ACETATE 400 MG/10 ML SUSPENSION UDCUP PO SCH (08:28)
[2021-11-01] MEDS: HydrOXYzine HCL 25 MG TABLET PO SCH ×3 (08:30→16:15)
[2021-11-01] MEDS: MULTIVITAMINS WITH MINERALS, THERAPEUTIC TABLET PO SCH (08:30)
[2021-11-01] MEDS ORDERED: MEGE40TA8 PO (14:36)
[2021-11-01 17:02] VITALS: BP 130/86
[2021-11-01] MEDS: OLANZapine 10 MG TABLET PO SCH (20:15)
[2021-11-02 00:08] VITALS: BP 126/81
[2021-11-02] MEDS: MULTIVITAMINS WITH MINERALS, THERAPEUTIC TABLET PO SCH (08:05)
[2021-11-02] MEDS: HydrOXYzine HCL 25 MG TABLET PO SCH ×3 (08:05→16:08)
[2021-11-02 08:19] VITALS: BP 135/81
[2021-11-02] MEDS: MEGESTROL ACETATE 400 MG/10 ML SUSPENSION UDCUP PO SCH (09:00)
[2021-11-02 16:07] VITALS: BP 137/83
[2021-11-02] MEDS: OLANZapine 10 MG TABLET PO SCH (20:14)
[2021-11-03 03:26] VITALS: BP 134/81
[2021-11-03] MEDS: MEGESTROL ACETATE 400 MG/10 ML SUSPENSION UDCUP PO SCH (08:03)
[2021-11-03] MEDS: HydrOXYzine HCL 25 MG TABLET PO SCH ×3 (08:04→16:59)
[2021-11-03] MEDS: MULTIVITAMINS WITH MINERALS, THERAPEUTIC TABLET PO SCH (08:04)
[2021-11-03 08:08] VITALS: BP 132/80
[2021-11-03] MEDS: LORazepam 2 MG TABLET PO PRN (16:59)
[2021-11-03] MEDS: HALOPERIDOL 5 MG TABLET PO PRN (16:59)
[2021-11-03] MEDS: OLANZapine 10 MG TABLET PO SCH (20:43)
[2021-11-04] MEDS: MEGESTROL ACETATE 400 MG/10 ML SUSPENSION UDCUP PO SCH (07:59)
[2021-11-04] MEDS: MULTIVITAMINS WITH MINERALS, THERAPEUTIC TABLET PO SCH (07:59)
[2021-11-04] MEDS: HydrOXYzine HCL 25 MG TABLET PO SCH ×3 (07:59→17:01)
[2021-11-04] MEDS ORDERED: HYD25 PO (09:36)
[2021-11-04] MEDS ORDERED: OLAN10 PO (09:36)
[2021-11-04] MEDS: HALOPERIDOL 5 MG TABLET PO PRN (17:01)
[2021-11-04] MEDS: OLANZapine 10 MG TABLET PO SCH (20:11)
[2021-11-05 00:12] VITALS: BP 137/84
[2021-11-05] MEDS: MEGESTROL ACETATE 400 MG/10 ML SUSPENSION UDCUP PO SCH (08:43)
[2021-11-05] MEDS: HydrOXYzine HCL 25 MG TABLET PO SCH ×3 (08:43→16:38)
[2021-11-05] MEDS: MULTIVITAMINS WITH MINERALS, THERAPEUTIC TABLET PO SCH (10:13)
[2021-11-05] MEDS: OLANZapine 10 MG TABLET PO SCH (20:41)
[2021-11-06] MEDS: MEGESTROL ACETATE 400 MG/10 ML SUSPENSION UDCUP PO SCH (08:13)
[2021-11-06] MEDS: HydrOXYzine HCL 25 MG TABLET PO SCH ×3 (08:13→16:31)
[2021-11-06] MEDS: MULTIVITAMINS WITH MINERALS, THERAPEUTIC TABLET PO SCH (08:13)
[2021-11-06 17:21] LABS: GLUCOMETER DEV NAME(LOC) POC.BV
[2021-11-06] MEDS: OLANZapine 10 MG TABLET PO SCH (20:21)
[2021-11-07] MEDS: MULTIVITAMINS WITH MINERALS, THERAPEUTIC TABLET PO SCH (08:29)
[2021-11-07] MEDS: HydrOXYzine HCL 25 MG TABLET PO SCH ×3 (08:29→17:17)
[2021-11-07] MEDS: MEGESTROL ACETATE 400 MG/10 ML SUSPENSION UDCUP PO SCH (08:29)
[2021-11-07] MEDS: OLANZapine 10 MG TABLET PO SCH (20:55)
[2021-11-08] MEDS: MULTIVITAMINS WITH MINERALS, THERAPEUTIC TABLET PO SCH (09:21)
[2021-11-08] MEDS: HydrOXYzine HCL 25 MG TABLET PO SCH ×3 (09:21→16:57)
[2021-11-08] MEDS: MEGESTROL ACETATE 400 MG/10 ML SUSPENSION UDCUP PO SCH (09:22)
[2021-11-08] MEDS ORDERED: LORazepam 2 MG/ML VIAL ONE (14:14)
[2021-11-08] MEDS ORDERED: LORazepam 2 MG/ML VIAL IM ONE (14:15)
[2021-11-08] MEDS ORDERED: HALOPERIDOL LACTATE 5 MG/ML VIAL IM ONE (14:15)
[2021-11-08] MEDS ORDERED: DiphenhydrAMINE HCL 50 MG/ML VIAL IM ONE (14:15)
[2021-11-08 15:26] LABS: GLUCOMETER DEV NAME(LOC) POC.BV
[2021-11-08] MEDS: HALOPERIDOL 5 MG TABLET PO PRN (16:57)
[2021-11-08] MEDS: LORazepam 2 MG TABLET PO PRN (16:57)
[2021-11-08] MEDS: OLANZapine 10 MG TABLET PO SCH (20:40)
[2021-11-09] MEDS: HydrOXYzine HCL 25 MG TABLET PO SCH ×3 (08:46→17:08)
[2021-11-09] MEDS: MULTIVITAMINS WITH MINERALS, THERAPEUTIC TABLET PO SCH (08:46)
[2021-11-09] MEDS: MEGESTROL ACETATE 400 MG/10 ML SUSPENSION UDCUP PO SCH (08:46)
[2021-11-09 16:20] VITALS: BP 122/82
[2021-11-09] MEDS: HALOPERIDOL 5 MG TABLET PO PRN (17:08)
[2021-11-09] MEDS: LORazepam 2 MG TABLET PO PRN (17:08)
[2021-11-09] MEDS: OLANZapine 10 MG TABLET PO SCH (20:50)
[2021-11-10] MEDS ORDERED: LORazepam 2 MG/ML VIAL IM ONE (07:30)
[2021-11-10] MEDS ORDERED: HALOPERIDOL LACTATE 5 MG/ML VIAL IM ONE (07:30)
[2021-11-10] MEDS ORDERED: DiphenhydrAMINE HCL 50 MG/ML VIAL IM ONE (07:30)
== END 2021-11-10 07:20 | DRG 750 ==
LOC: EMS 16:24 → B3A 18:28
PROVIDERS: ADMIT Psychiatry & Neurology Psychiatry; ATTEND Psychiatry & Neurology Psychiatry
DX: F20.0 Paranoid schizophrenia (principal); F79 Unspecified intellectual disabilities; D72.829 Elevated white blood cell count, unspecified; F31.9 Bipolar disorder, unspecified; R73.9 Hyperglycemia, unspecified; Z20.822 Contact with and (suspected) exposure to COVID-19; K59.00 Constipation, unspecified; Z59.00 Homelessness unspecified
CPT/HCPCS: 0031A; 80053; 85025; 87081; 91303; 99285; G0480; J1200; J1630; J2060

== ENCOUNTER 2021-06-19 13:43 | Emergency (ER) | payer MEDICAID, OTHER ==
[~2021-06-19] VITALS: Ht 167.6 cm; Wt 81.8 kg
[2021-06-19 17:00] VITALS: BP 124/75
[2021-06-19] MEDS ORDERED: LORazepam 2 MG/ML VIAL IM ONE (17:00)
[2021-06-19] MEDS ORDERED: HALOPERIDOL LACTATE 5 MG/ML VIAL IM ONE (17:00)
[2021-06-19] MEDS: HALOPERIDOL 5 MG TABLET PO ONE (17:08)
[2021-06-19] MEDS: LORazepam 2 MG TABLET PO ONE (17:08)
== END 2021-06-19 22:30 | disposition home or self-care (01) ==
LOC: EMS 13:43
DX: S09.90XA Unspecified injury of head, initial encounter (principal); F25.9 Schizoaffective disorder, unspecified; F31.9 Bipolar disorder, unspecified; W51.XXXA Accidental striking against or bumped into by another person, initial encounter; Y93.89 Activity, other specified; Y92.89 Other specified places as the place of occurrence of the external cause; Y99.8 Other external cause status
CPT/HCPCS: 99283; J1630; J2060